=== PATIENT | male | born 1985 | race Caucasian/White ===

== ENCOUNTER → 2019-04-21 10:23 | Outpatient (BNVA) | payer MEDICAID, SELFPAY | PROVIDERS: Family Provider Family Medicine; PCP Family Medicine; Visit Provider Anesthesiology | DX: G89.29 Other chronic pain (principal); M54.16 Radiculopathy, lumbar region; M79.651 Pain in right thigh; M79.652 Pain in left thigh; M12.819 Other specific arthropathies, not elsewhere classified, unspecified shoulder; S22.009S Unspecified fracture of unspecified thoracic vertebra, sequela; X58.XXXS Exposure to other specified factors, sequela; M75.100 Unspecified rotator cuff tear or rupture of unspecified shoulder, not specified as traumatic; Z87.828 Personal history of other (healed) physical injury and trauma; Z79.891 Long term (current) use of opiate analgesic | CPT/HCPCS: 99214 ==

== ENCOUNTER → 2019-05-19 14:01 | Outpatient (BNVA) | payer MEDICAID, SELFPAY | PROVIDERS: Family Provider Family Medicine; PCP Family Medicine; Visit Provider Anesthesiology | DX: Z76.89 Persons encountering health services in other specified circumstances (principal); G89.29 Other chronic pain; M54.16 Radiculopathy, lumbar region; Z87.828 Personal history of other (healed) physical injury and trauma; Z79.891 Long term (current) use of opiate analgesic | CPT/HCPCS: 99213; 99214 ==

== ENCOUNTER → 2019-08-12 13:44 | Outpatient (BNVA) | payer MEDICAID, SELFPAY | PROVIDERS: Family Provider Family Medicine; PCP Family Medicine; Visit Provider Nurse Practitioner | DX: M54.41 Lumbago with sciatica, right side (principal); M54.42 Lumbago with sciatica, left side; M54.9 Dorsalgia, unspecified; Z79.891 Long term (current) use of opiate analgesic; Z71.6 Tobacco abuse counseling | CPT/HCPCS: 99213 ==

== ENCOUNTER → 2019-10-07 07:55 | Outpatient (BNVA) | payer MEDICAID, SELFPAY | PROVIDERS: Family Provider Family Medicine; PCP Family Medicine; Visit Provider Anesthesiology | DX: G89.29 Other chronic pain (principal); M54.16 Radiculopathy, lumbar region; M54.9 Dorsalgia, unspecified; M75.102 Unspecified rotator cuff tear or rupture of left shoulder, not specified as traumatic; M12.812 Other specific arthropathies, not elsewhere classified, left shoulder; Z79.891 Long term (current) use of opiate analgesic | CPT/HCPCS: 99214 ==

== ENCOUNTER → 2019-11-12 10:14 | Outpatient (BNVA) | payer MEDICAID, SELFPAY | PROVIDERS: Family Provider Family Medicine; PCP Family Medicine; Visit Provider Nurse Practitioner | DX: G89.29 Other chronic pain (principal); M54.42 Lumbago with sciatica, left side; M54.16 Radiculopathy, lumbar region; S22.009S Unspecified fracture of unspecified thoracic vertebra, sequela; X58.XXXS Exposure to other specified factors, sequela; M54.9 Dorsalgia, unspecified; Z79.891 Long term (current) use of opiate analgesic | CPT/HCPCS: 99213 ==

== ENCOUNTER → 2019-12-10 10:27 | Outpatient (BNVA) | payer MEDICAID, SELFPAY | PROVIDERS: Family Provider Family Medicine; PCP Family Medicine; Visit Provider Anesthesiology | DX: G89.29 Other chronic pain (principal); M54.42 Lumbago with sciatica, left side; M54.16 Radiculopathy, lumbar region; M54.9 Dorsalgia, unspecified; S22.009S Unspecified fracture of unspecified thoracic vertebra, sequela; X58.XXXS Exposure to other specified factors, sequela; Z87.828 Personal history of other (healed) physical injury and trauma; Z79.891 Long term (current) use of opiate analgesic | CPT/HCPCS: 99213; 99214 ==

== ENCOUNTER → 2020-02-09 13:18 | Outpatient (BNVA) | payer MEDICAID, SELFPAY | PROVIDERS: Family Provider Family Medicine; PCP Family Medicine; Visit Provider Anesthesiology | DX: G89.29 Other chronic pain (principal); M54.16 Radiculopathy, lumbar region; M54.9 Dorsalgia, unspecified; Z87.828 Personal history of other (healed) physical injury and trauma; Z79.891 Long term (current) use of opiate analgesic | CPT/HCPCS: 99213; 99214 ==

== ENCOUNTER → 2020-04-08 08:23 | Outpatient (BNVA) | payer MEDICAID, SELFPAY | PROVIDERS: PCP Family Medicine; Visit Provider Anesthesiology | DX: G89.29 Other chronic pain (principal); M54.42 Lumbago with sciatica, left side; M54.9 Dorsalgia, unspecified; M54.16 Radiculopathy, lumbar region; Z79.891 Long term (current) use of opiate analgesic | CPT/HCPCS: 99213 ==

== ENCOUNTER → 2020-06-02 07:54 | Outpatient (BNVA) | payer MEDICAID, SELFPAY | PROVIDERS: PCP Family Medicine; Visit Provider Anesthesiology | DX: G89.29 Other chronic pain (principal); M54.42 Lumbago with sciatica, left side; M54.9 Dorsalgia, unspecified; M54.16 Radiculopathy, lumbar region; Z87.828 Personal history of other (healed) physical injury and trauma; Z79.891 Long term (current) use of opiate analgesic | CPT/HCPCS: 99213 ==

== ENCOUNTER → 2020-08-03 12:46 | Outpatient (BNVA) | payer MEDICAID, SELFPAY | PROVIDERS: PCP Family Medicine; Visit Provider Urology | DX: N39.0 Urinary tract infection, site not specified (principal); N31.9 Neuromuscular dysfunction of bladder, unspecified; R33.9 Retention of urine, unspecified; N52.9 Male erectile dysfunction, unspecified | CPT/HCPCS: 81003 ==

== ENCOUNTER → 2020-08-05 09:04 | Outpatient (BNVA) | payer MEDICAID, SELFPAY | PROVIDERS: PCP Family Medicine; Visit Provider Nurse Practitioner | DX: G89.29 Other chronic pain (principal); M54.16 Radiculopathy, lumbar region; M54.9 Dorsalgia, unspecified; S22.009S Unspecified fracture of unspecified thoracic vertebra, sequela; X58.XXXS Exposure to other specified factors, sequela; Z87.828 Personal history of other (healed) physical injury and trauma; Z79.891 Long term (current) use of opiate analgesic | CPT/HCPCS: 99212; 99213 ==

== ENCOUNTER → 2020-10-05 09:04 | Outpatient (BNVA) | payer MEDICAID, SELFPAY | PROVIDERS: PCP Family Medicine; Visit Provider Anesthesiology | DX: G89.29 Other chronic pain (principal); M54.42 Lumbago with sciatica, left side; M54.16 Radiculopathy, lumbar region; Z87.828 Personal history of other (healed) physical injury and trauma; Z79.891 Long term (current) use of opiate analgesic; Z87.891 Personal history of nicotine dependence | CPT/HCPCS: 99213 ==

== ENCOUNTER → 2020-11-29 08:10 | Outpatient (BNVA) | payer MEDICAID, SELFPAY | PROVIDERS: PCP Family Medicine; Visit Provider Anesthesiology | DX: G89.29 Other chronic pain (principal); M54.16 Radiculopathy, lumbar region; Z87.828 Personal history of other (healed) physical injury and trauma; Z79.891 Long term (current) use of opiate analgesic; Z87.891 Personal history of nicotine dependence | CPT/HCPCS: 99213 ==

== ENCOUNTER → 2021-01-25 09:19 | Outpatient (BNVA) | payer MEDICAID, SELFPAY | PROVIDERS: PCP Family Medicine; Visit Provider Anesthesiology | DX: G89.29 Other chronic pain (principal); M54.16 Radiculopathy, lumbar region; Z87.828 Personal history of other (healed) physical injury and trauma; Z79.891 Long term (current) use of opiate analgesic | CPT/HCPCS: 99213 ==

== ENCOUNTER → 2021-04-04 08:58 | Outpatient (BNVA) | payer MEDICAID, SELFPAY | PROVIDERS: PCP Family Medicine; Visit Provider Anesthesiology | DX: G89.29 Other chronic pain (principal); M54.50 Low back pain, unspecified; Z79.891 Long term (current) use of opiate analgesic; Z87.891 Personal history of nicotine dependence | CPT/HCPCS: 99213 ==

== ENCOUNTER → 2022-08-08 11:07 | Outpatient (BNVA) | payer MEDICAID, SELFPAY | PROVIDERS: PCP Family Medicine; Visit Provider Urology | DX: R33.9 Retention of urine, unspecified (principal); N39.0 Urinary tract infection, site not specified; N52.9 Male erectile dysfunction, unspecified | CPT/HCPCS: 81003; 99213 ==

== ENCOUNTER 2023-03-06 04:20 | Emergency (ER) | payer MEDICAID, SELFPAY ==
[2023-03-06 04:24] VITALS: BP 143/107; PULSE 97; RESP 20; TEMP 36.8; O2SAT 100; BMI 20.9
[2023-03-06 04:47] LABS: Basophils # 0.1 10^3/uL (0.0-0.1); Basophils % 0.4 %; Eosinophils # 0.2 10^3/uL (0.0-0.8); Eosinophils % 1.4 %; Hematocrit 45.6 % (37-53); Lymphocytes # 3.6 10^3/uL (0.8-4.8); Lymphocytes % 28.8 %; Mean Corpuscular HGB Conc 34.6 g/dL (30-55); Mean Corpuscular Hemoglobin 30.8 pg (27-33); Mean Corpuscular Volume 88.9 fl (82-101); Mean Platelet Volume 8.8 fL (7.4-10.4); Monocytes # 0.8 10^3/uL (0.2-0.9); Monocytes % 6.3 %; Neutrophils # 7.75 10^3/uL (1.8-7.7); Neutrophils % 62.8 %; Nucleated Red Blood Cells % 0 %; Platelet Count 332 10^3/cmm (157-399); Red Blood Count 5.13 10^6/uL (3.85-5.65); Red Cell Distribution Width 11.9 % (12.1-15.1); White Blood Count 12.35 10^3/uL (3.29-11.43)
[2023-03-06] MEDS: ondansetron 2 mg/ML SDV 2 mL 4 MG IVP (04:51)
[2023-03-06] MEDS: ketorolac 30 mg/mL INJ IVP (04:51)
--- NOTE | 2023-03-06 04:55 | CTR_ITS ---
PROCEDURE INFORMATION: Exam: CT Abdomen And Pelvis With Contrast Exam date and time: 03/06/2023 5:13 AM Age: 37 years old Clinical indication: Abdominal pain; Localized; Patient HX: Severe upper abd pain per patient TECHNIQUE: Imaging protocol: Computed tomography of the abdomen and pelvis with contrast. Radiation optimization: All CT scans at this facility use at least one of these dose optimization techniques: automated exposure control; mA and/or kV adjustment per patient size (includes targeted exams where dose is matched to clinical indication); or iterative reconstruction. Contrast material: OMNI 350; Contrast volume: 100 ml; Contrast route: INTRAVENOUS (IV); COMPARISON: CT abdomen pelvis w con* [id number] 08/19/2016 4:40 AM RADIATION DOSE METRICS: Total DLP (mGy-cm): 527.46 FINDINGS: Liver: No acute abnormality or suspicious hepatic mass. Portal vein is patent. Gallbladder and bile ducts: Distended gallbladder without gallbladder wall thickening or biliary duct dilation. No radiodense stones are seen. Pancreas: No acute abnormality or obvious pancreatic duct dilation. Spleen: Normal size; no suspicious masses. Adrenal glands: No suspicious adrenal masses. Kidneys and ureters: Symmetric renal parenchymal enhancement without hydronephrosis. Stomach and bowel: No evidence of gastric outlet obstruction or bowel obstruction. Appendix: The appendix is normal. Intraperitoneal space: No free intraperitoneal air, significant ascites, or localized fluid collections. Vasculature: Abdominal aorta has normal caliber. Lymph nodes: No enlarged lymph nodes. Urinary bladder: No significant bladder wall thickening. Reproductive: Visualized portions show no obvious acute abnormality. Bones/joints: No acute osseous abnormality detected. Extensive posterolateral osseous fusion extending from T11 to L3. Mild chronic compression deformity at L1. Soft tissues: Unremarkable. CT/CT abdomen pelvis w con* [id number] IMPRESSION: 1. Moderately distended gallbladder. No evidence of cholecystitis or biliary duct obstruction. Such finding is nonspecific but can be seen in setting of biliary dyskinesia. 2. Otherwise, no acute abnormality identified within the abdomen or pelvis.
[2023-03-06 05:00] LABS: Alanine Aminotransferase 29 U/L (0-41); Albumin Level 4.8 g/dL (3.5-5.2); Alkaline Phosphatase 70 U/L (40-130); Anion Gap 18.6 (5-19); Aspartate Amino Transferase 17 U/L (0-40); Blood Urea Nitrogen 6 mg/dL (6-20); Calcium 10.2 mg/dL (8.5-10.5); Carbon Dioxide 21 mmol/L (22-29); Chloride 102 mmol/L (98-107); Globulin 3.7 g/dL (1.3-4.6); Glomerular Filtration Rate 125.5 mL/min (90-130); Glucose 128 mg/dL (65-115); Lipase 61 U/L (13-60); Osmolality Calculated 285 mOsm/kg (285-295); Potassium 3.6 mmol/L (3.5-5.1); Sodium 138 mmol/L (136-145); Total Bilirubin 0.3 mg/dL (0.15-1.2); Total Protein 8.5 g/dL (6.6-8.7)
[2023-03-06 05:01] LABS: Alcohol Level < 10 mg/dL (0-10)
[2023-03-06] MEDS: lidocaine 2% viscous 15 ML, aluminum-mag hydrox-simethicon 30 ML, sucralfate oral liq 1 GM PO (05:02)
[2023-03-06] MEDS: morphine 4 mg/mL SDV 1 mL IVP (05:03)
[2023-03-06 05:06] LABS: Ammonia 21 umol/L (16-60)
[2023-03-06] MEDS: iohexol 350 mg/mL 500 mL Btl (per mL) IV (05:17)
--- NOTE | 2023-03-06 05:22 | ED_ITS ---
Documented by User: Rhett Cason MD 03/06/23 07:11 HPI - Abdominal Pain 2 General: Chief Complaint: Abdominal Pain Stated Complaint: stomach pain Time Seen by Provider: 03/06/23 04:31 History of Present Illness: 37-year-old male presents emergency depa rtment with complaints of 10 out of 10 epigastric pain. He states it is a burning sharp stabbing type pain that began approximately 1 AM this morning. He states he vomited 2-3 times. He states he attempted to take [id number] antacids without relief he also states he drank several glasses of water to help with the pain. He states he also took a single Tylenol without relief. He states he has a history of chronic back pain and takes hydrocodone for his chronic back pain. Associated Symptoms: Reports nausea and vomiting Review of Systems 2 General: Reports: 10 or more systems reviewed and unremarkable except in HPI and below GI: Reports: abdominal pain, nausea and vomiting PFSH ED 2 PFSH: Medical History Acute back pain Acute radicular low back pain Back pain with history of spinal surgery Chronic low back pain Chronic radicular low back pain Encounter for long-term opiate analgesic use Erectile dysfunction Hx of spinal cord injury Neurogenic bladder Opioid contract exists Recurrent UTI Rotator cuff tear arthropathy Unspecified fracture of unspecified thoracic vertebra, sequela Surgical History History of back surgery Family History Denies family history of Anesthesia complication Social History Smoking and tobacco/nicotine status: current some day tobacco/nicotine user cigarettes Second hand smoke exposure: No Alcohol intake: never Substance/Drug Use: never Current occupational status: disabled Physical Exam 2 Narrative: EXAM NARRATIVE: Constitutional: the patient appears well nourished and of normal development. Vital signs as documented. Patient does appear to be in acute distress with epigastric pain. Alert and oriented-to person, place, time and situation. Head, eyes, ears, nose, mouth, throat: Normocephalic, atraumatic. Pupils-equal, round, reactive to light. No scleral icterus. Normal-appearing external ears. Normal appearing nasal turbinates, no drainage. No obvious oral lesions, posterior oropharynx without erythema or exudates. Neck: Supple, trachea is midline, no lymphadenopathy, no jugular venous distension, thyromegaly, or carotid bruits. Carotid upstrokes are brisk bilaterally. Lungs: clear to auscultation to all lung anna. Symmetrical rise and fall of chest, no obvious signs of increased work of breathing at present. Cardiac: Regular rate and rhythm, positive S1, S2. No murmurs, rubs or gallops that I can appreciate Abdomen: Soft, tender to palpation to the epigastric region and right upper quadrant., normal active bowel sounds to all quadrants. No palpable masses, no organomegaly and abdominal bruits. Extremities: 2+ pulses in the upper extremities that are equal bilaterally, 2+ pulses in the lower extremities that are equal bilaterally. Non-edematous. Moves all extremities well, sensation to all extremities are noted. Skin: Warm, dry, intact. Course 2 Reevaluation(s): Reevaluation #1: Reevaluation of the patient after he received Toradol, morphine, Zofran and a GI cocktail demonstrates moderate improvement of the patient's pain. He states he now rates the pain a 3 out of 10. He has had no additional episodes of nausea or vomiting. Time: 05:26 Vital Signs: Vital signs: Vital Signs Temperature 98.3 F 03/06/23 04:24 Pulse Rate 87 03/06/23 06:37 Respiratory Rate 16 03/06/23 06:37 Blood Pressure 110/78 03/06/23 06:37 Pulse Oximetry 97 03/06/23 06:37 Oxygen Delivery Me thod Room Air 03/06/23 04:24 MDM - Abdominal Pain Medical Decision Making Physical exam completed and documented, I will obtain laboratory evaluation to include a CBC, CMP, lipase, urinalysis, and a CT scan of the patient's abdomen pelvis to evaluate for possible differential diagnosis of bowel obstruction, incarcerated hernia, abdominal wall strain, abdominal wall hematoma, constipation. I will provide the patient IV access and IV fluid as well as a CT scan abdomen pelvis with contrast for evaluation for possible colitis, acute appendicitis, diverticulitis. I will provide the patient with pain medication as well as anti-nausea medication and a GI cocktail and reevaluate. Medical Records I reviewed the patient's medical records. Lab Data I reviewed the patient's lab results. 03/06/23 04:35 03/06/23 04:35 Labs/Radiology: Radiology Impressions Abdomen/Pelvis CT 03/06/23 04:55 IMPRESSION: 1. Moderately distended gallbladder. No evidence of cholecystitis or biliary duct obstruction. Such finding is nonspecific but can be seen in setting of biliary dyskinesia. 2. Otherwise, no acute abnormality identified within the abdomen or pelvis. Gallbladder Ultrasound 03/06/23 06:06 IMPRESSION: Gallbladder distended with sludge. Cholelithiasis also present. Laboratory Results WBC 12.35 10^3/uL (3.29-11.43) H 03/06/23 04:35 RBC 5.13 10^6/uL (3.85-5.65) 03/06/23 04:35 Hgb 15.80 g/dL (11.27-16.99) 03/06/23 04:35 Hct 45.6 % (37-53) 03/06/23 04:35 MCV 88.9 fl (82-101) 03/06/23 04:35 MCH 30.8 pg (27-33) 03/06/23 04:35 MCHC 34.6 g/dL (30-55) 03/06/23 04:35 RDW 11.9 % (12.1-15.1) L 03/06/23 04:35 Plt Count 332 10^3/cmm (157-399) 03/06/23 04:35 MPV 8.8 fL (7.4-10.4) 03/06/23 04:35 Neut % (Auto) 62.8 % 03/06/23 04:35 Lymph % (Auto) 28.8 % 03/06/23 04:35 [place] % (Auto) 6.3 % 03/06/23 04:35 Eos % (Auto) 1.4 % 03/06/23 04:35 Baso % (Auto) 0.4 % 03/06/23 04:35 Neut # (Auto) 7.75 10^3/uL (1.8-7.7) H 03/06/23 04:35 Lymph # (Auto) 3.6 10^3/uL (0.8-4.8) 03/06/23 04:35 [place] # (Auto) 0.8 10^3/uL (0.2-0.9) 03/06/23 04:35 Eos # (Auto) 0.2 10^3/uL (0.0-0.8) 03/06/23 04:35 Baso # (Auto) 0.1 10^3/uL (0.0-0.1) 03/06/23 04:35 Nucleated RBC % (auto) 0 % 03/06/23 04:35 Nucleated RBCs # 0.0 /100WBC 03/06/23 04:35 Sodium 138 mmol/L (136-145) 03/06/23 04:35 Potassium 3.6 mmol/L (3.5-5.1) 03/06/23 04:35 Chloride 102 mmol/L (98-107) 03/06/23 04:35 Carbon Dioxide 21 mmol/L (22-29) L 03/06/23 04:35 Anion Gap 18.6 (5-19) 03/06/23 04:35 BUN 6 mg/dL (6-20) 03/06/23 04:35 Creatinine 0.7 mg/dL (0.7-1.2) 03/06/23 04:35 GFR Calculation 125.5 mL/min (90-130) 03/06/23 04:35 Glucose 128 mg/dL (65-115) H 03/06/23 04:35 Calculated Osmolality 285 mOsm/kg (285-295) 03/06/23 04:35 Calcium 10.2 mg/dL (8.5-10.5) 03/06/23 04:35 Total Bilirubin 0.3 mg/dL (0.15-1.2) 03/06/23 04:35 AST 17 U/L (0-40) 03/06/23 04:35 ALT 29 U/L (0-41) 03/06/23 04:35 Alkaline Phosphatase 70 U/L (40-130) 03/06/23 04:35 Ammonia 21 umol/L (16-60) 03/06/23 04:35 Total Protein 8.5 g/dL (6.6-8.7) 03/06/23 04:35 Albumin 4.8 g/dL (3.5-5.2) 03/06/23 04:35 Globulin 3.7 g/dL (1.3-4.6) 03/06/23 04:35 Lipase 61 U/L (13-60) H 03/06/23 04:35 Urine Color Yellow (Yellow) 03/06/23 05:20 Urine Appearance Clear (CLEAR) 03/06/23 05:20 Urine pH 7 (5-7) 03/06/23 05:20 Ur Specific [place] 1.005 (1.005-1.030) 03/06/23 05:20 Urine Protein Trace (Negative) 03/06/23 05:20 Urine Glucose (UA) Norm (Normal) 03/06/23 05:20 Urine Ketones 1+ (Negative) H 03/06/23 05:20 Urine Blood Neg (Negative) 03/06/23 05:20 Urine Nitrate Negative (Negative) 03/06/23 05:20 Urine Bilirubin Neg (Negative) 03/06/23 05:20 Urine Urobilinogen Neg mg/dL (Negative) 03/06/23 05:20 Ur Leukocyte Esterase Trace (Negative) H 03/06/23 05:20 Urine RBC None /hpf (0-2) 03/06/23 05:20 Urine WBC 0-4 /hpf (0-5) H 03/06/23 05:20 Ur Squamous Epith Cells None /hpf (0-5) 03/06/23 05:20 Amorphous Sediment Not Reportable 03/06/23 05:20 Urine Bacteria Trace /hpf (NONE) 03/06/23 05:20 Urine Opiates Screen Positive ng/mL (Negative) H 03/06/23 05:20 Ur Barbiturates Screen Negative ng/mL (Negative) 03/06/23 05:20 Ur Phencyclidine Scrn Negative ng/mL (Negative) 03/06/23 05:20 Ur Amphetamines Screen Negative ng/mL (Negative) 03/06/23 05:20 U Benzodiazepines Scrn Negative ng/mL (Negative) 03/06/23 05:20 Urine Cocaine Screen Negative ng/mL (Negative) 03/06/23 05:20 U Marijuana (THC) Screen Negative ng/mL (Negative) 03/06/23 05:20 Ethyl Alcohol < 10 mg/dL (0-10) 03/06/23 04:35 All radiology interpretation(s) finalized by discharge Discharge Plan Discharge Patient Disposition: Home Clinical Impression: Duodenal ulcer, Biliary sludge determined by ultrasound Condition: Stable Prescriptions: New Protonix 40 mg tablet,delayed release (DR/EC) 40 mg PO BID Qty: 60 0RF Discontinued famotidine 20 mg tablet 20 mg PO BID 90 Days Qty: 180 3RF No Action tadalafil 20 mg tablet 20 mg PO DAILY PRN (Reason: sexual activity) Qty: 20 12RF Rx Instructions: administer approximately 30min before sexual activity; NO NITROGLYCERIN! polyethylene glycol 3350 [Miralax] 17 gram/dose powder 17 g PO DAILY Qty: 510 5RF cephalexin 250 mg capsule 250 mg PO TID Qty: 42 12RF hydrocodone-acetaminophen 10-325 mg tablet 1 tab PO Q8H PRN (Reason: pain) 30 Days Qty: 90 0RF lactulose 10 gram/15 mL solution See Rx Instructions .ROUTE .COMPLEX Qty: 473 5RF Dose Instruction: TAKE 30 ML BY MOUTH TWICE DAILY Rx Instructions: TAKE 30 ML BY MOUTH TWICE DAILY Discharge Orders: Discharge ED (Routine); Ordered 03/06/23 Ordered By: Robe Garcia Referrals: Igor Reyna MD [Primary Care Provider] - Discharge Diet: Usual diet Discharge Activity: Resume usual activity Patient Instructions: Diet for Stomach Ulcers and Gastritis (ED), Opioid Safety, Pain Management Activity Restrictions/Additional Instructions: Thank you for choosing [facility] for your healthcare needs today. Please realize this is an emergency room and that we are providing you with a medical screening exam and this may not be complete and all inclusive of all the testing and or work up that you may need to determine your ailment or severity of your illness. It is very important that you follow up as instructed or that you return to the Emergency Department should you have concerns or if your condition changes or worsens in any way. You are seen today for abdominal pain. Imaging shows sludge in the gallbladder but there is no definitive signs of acute cholecystitis at this time. Dr. Garcia seen and recommends Protonix 40 mg twice daily for at least the following month. You are also given instructions on diet for ulcers. manager plan will make arrangements for follow-up with Dr. Garcia. Sign Out Sign Out Data: Patient Sign Out occurred on 03/06/23 at 06:49. Patient's care was discussed, and care was transferred from Rhett Cason MD to Robe Garcia DO. Coding Level of Care Code ED Barrel Leveler for Chg Fwd Documented by User: Robe Garcia DO 03/06/23 07:17 HPI - Abdominal Pain 2 General: Chief Complaint: Abdominal Pain Stated Complaint: stomach pain Time Seen by Provider: 03/06/23 04:31 PFSH ED 2 PFSH: Medical History Acute back pain Acute radicular low back pain Back pain with history of spinal surgery Chronic low back pain Chronic radicular low back pain Encounter for long-term opiate analgesic use Erectile dysfunction Hx of spinal cord injury Neurogenic bladder Opioid contract exists Recurrent UTI Rotator cuff tear arthropathy Unspecified fracture of unspecified thoracic vertebra, sequela Surgical History History of back surgery Family History Denies family history of Anesthesia complication Social History Smoking and tobacco/nicotine status: current some day tobacco/nicotine user cigarettes Second hand smoke exposure: No Alcohol intake: never Substance/Drug Use: never Current occupational status: disabled Course 2 Vital Signs: Vital signs: Vital Signs Temperature 98.3 F 03/06/23 04:24 Pulse Rate 87 03/06/23 06:37 Respiratory Rate 16 03/06/23 06:37 Blood Pressure 110/78 03/06/23 06:37 Pulse Oximetry 97 03/06/23 06:37 Oxygen Delivery Me thod Room Air 03/06/23 04:24 MDM - Abdominal Pain Medical Decision Making Physical exam completed and documented, I will obtain laboratory evaluation to include a CBC, CMP, lipase, urinalysis, and a CT scan of the patient's abdomen pelvis to evaluate for possible differential diagnosis of bowel obstruction, incarcerated hernia, abdominal wall strain, abdominal wall hematoma, constipation. I will provide the patient IV access and IV fluid as well as a CT scan abdomen pelvis with contrast for evaluation for possible colitis, acute appendicitis, diverticulitis. I will provide the patient with pain medication as well as anti-nausea medication and a GI cocktail and reevaluate. Care assumed at change of shift CT shows large amount of gallbladder sludge with distended gallbladder but no gallbladder wall thickening. He has had a previous episode about a month ago. He cannot really identify any triggering foods or events with these episodes. He does report improvement after pain medications and GI cocktail. He also reports in the past he has not had similar episodes much less intense that improved when he ate. Discussed with Dr. Garcia on- call for surgery he seen the patient in the department. Will discharge the patient home and his recommendation on Protonix 40 mg twice daily for a month. Follow-up with Dr. Garcia in the office if symptoms worsen or change return to the emergency room. Differential Diagnosis Likely abdominal pain, constipation, gastroenteritis, pancreatitis and small bowel obstruction Medical Records I reviewed the patient's medical records. Lab Data I reviewed the patient's lab results. 03/06/23 04:35 03/06/23 04:35 Labs/Radiology: Radiology Impressions Abdomen/Pelvis CT 03/06/23 04:55 IMPRESSION: 1. Moderately distended gallbladder. No evidence of cholecystitis or biliary duct obstruction. Such finding is nonspecific but can be seen in setting of biliary dyskinesia. 2. Otherwise, no acute abnormality identified within the abdomen or pelvis. Gallbladder Ultrasound 03/06/23 06:06 IMPRESSION: Gallbladder distended with sludge. Cholelithiasis also present. Laboratory Results WBC 12.35 10^3/uL (3.29-11.43) H 03/06/23 04:35 RBC 5.13 10^6/uL (3.85-5.65) 03/06/23 04:35 Hgb 15.80 g/dL (11.27-16.99) 03/06/23 04:35 Hct 45.6 % (37-53) 03/06/23 04:35 MCV 88.9 fl (82-101) 03/06/23 04:35 MCH 30.8 pg (27-33) 03/06/23 04:35 MCHC 34.6 g/dL (30-55) 03/06/23 04:35 RDW 11.9 % (12.1-15.1) L 03/06/23 04:35 Plt Count 332 10^3/cmm (157-399) 03/06/23 04:35 MPV 8.8 fL (7.4-10.4) 03/06/23 04:35 Neut % (Auto) 62.8 % 03/06/23 04:35 Lymph % (Auto) 28.8 % 03/06/23 04:35 [place] % (Auto) 6.3 % 03/06/23 04:35 Eos % (Auto) 1.4 % 03/06/23 04:35 Baso % (Auto) 0.4 % 03/06/23 04:35 Neut # (Auto) 7.75 10^3/uL (1.8-7.7) H 03/06/23 04:35 Lymph # (Auto) 3.6 10^3/uL (0.8-4.8) 03/06/23 04:35 [place] # (Auto) 0.8 10^3/uL (0.2-0.9) 03/06/23 04:35 Eos # (Auto) 0.2 10^3/uL (0.0-0.8) 03/06/23 04:35 Baso # (Auto) 0.1 10^3/uL (0.0-0.1) 03/06/23 04:35 Nucleated RBC % (auto) 0 % 03/06/23 04:35 Nucleated RBCs # 0.0 /100WBC 03/06/23 04:35 Sodium 138 mmol/L (136-145) 03/06/23 04:35 Potassium 3.6 mmol/L (3.5-5.1) 03/06/23 04:35 Chloride 102 mmol/L (98-107) 03/06/23 04:35 Carbon Dioxide 21 mmol/L (22-29) L 03/06/23 04:35 Anion Gap 18.6 (5-19) 03/06/23 04:35 BUN 6 mg/dL (6-20) 03/06/23 04:35 Creatinine 0.7 mg/dL (0.7-1.2) 03/06/23 04:35 GFR Calculation 125.5 mL/min (90-130) 03/06/23 04:35 Glucose 128 mg/dL (65-115) H 03/06/23 04:35 Calculated Osmolality 285 mOsm/kg (285-295) 03/06/23 04:35 Calcium 10.2 mg/dL (8.5-10.5) 03/06/23 04:35 Total Bilirubin 0.3 mg/dL (0.15-1.2) 03/06/23 04:35 AST 17 U/L (0-40) 03/06/23 04:35 ALT 29 U/L (0-41) 03/06/23 04:35 Alkaline Phosphatase 70 U/L (40-130) 03/06/23 04:35 Ammonia 21 umol/L (16-60) 03/06/23 04:35 Total Protein 8.5 g/dL (6.6-8.7) 03/06/23 04:35 Albumin 4.8 g/dL (3.5-5.2) 03/06/23 04:35 Globulin 3.7 g/dL (1.3-4.6) 03/06/23 04:35 Lipase 61 U/L (13-60) H 03/06/23 04:35 Urine Color Yellow (Yellow) 03/06/23 05:20 Urine Appearance Clear (CLEAR) 03/06/23 05:20 Urine pH 7 (5-7) 03/06/23 05:20 Ur Specific [place] 1.005 (1.005-1.030) 03/06/23 05:20 Urine Protein Trace (Negative) 03/06/23 05:20 Urine Glucose (UA) Norm (Normal) 03/06/23 05:20 Urine Ketones 1+ (Negative) H 03/06/23 05:20 Urine Blood Neg (Negative) 03/06/23 05:20 Urine Nitrate Negative (Negative) 03/06/23 05:20 Urine Bilirubin Neg (Negative) 03/06/23 05:20 Urine Urobilinogen Neg mg/dL (Negative) 03/06/23 05:20 Ur Leukocyte Esterase Trace (Negative) H 03/06/23 05:20 Urine RBC None /hpf (0-2) 03/06/23 05:20 Urine WBC 0-4 /hpf (0-5) H 03/06/23 05:20 Ur Squamous Epith Cells None /hpf (0-5) 03/06/23 05:20 Amorphous Sediment Not Reportable 03/06/23 05:20 Urine Bacteria Trace /hpf (NONE) 03/06/23 05:20 Urine Opiates Screen Positive ng/mL (Negative) H 03/06/23 05:20 Ur Barbiturates Screen Negative ng/mL (Negative) 03/06/23 05:20 Ur Phencyclidine Scrn Negative ng/mL (Negative) 03/06/23 05:20 Ur Amphetamines Screen Negative ng/mL (Negative) 03/06/23 05:20 U Benzodiazepines Scrn Negative ng/mL (Negative) 03/06/23 05:20 Urine Cocaine Screen Negative ng/mL (Negative) 03/06/23 05:20 U Marijuana (THC) Screen Negative ng/mL (Negative) 03/06/23 05:20 Ethyl Alcohol < 10 mg/dL (0-10) 03/06/23 04:35 Discharge Plan Discharge Patient Disposition: Home Clinical Impression: Duodenal ulcer, Biliary sludge determined by ultrasound Condition: Stable Prescriptions: New Protonix 40 mg tablet,delayed release (DR/EC) 40 mg PO BID Qty: 60 0RF Discontinued famotidine 20 mg tablet 20 mg PO BID 90 Days Qty: 180 3RF No Action tadalafil 20 mg tablet 20 mg PO DAILY PRN (Reason: sexual activity) Qty: 20 12RF Rx Instructions: administer approximately 30min before sexual activity; NO NITROGLYCERIN! polyethylene glycol 3350 [Miralax] 17 gram/dose powder 17 g PO DAILY Qty: 510 5RF cephalexin 250 mg capsule 250 mg PO TID Qty: 42 12RF hydrocodone-acetaminophen 10-325 mg tablet 1 tab PO Q8H PRN (Reason: pain) 30 Days Qty: 90 0RF lactulose 10 gram/15 mL solution See Rx Instructions .ROUTE .COMPLEX Qty: 473 5RF Dose Instruction: TAKE 30 ML BY MOUTH TWICE DAILY Rx Instructions: TAKE 30 ML BY MOUTH TWICE DAILY Discharge Orders: Discharge ED (Routine); Ordered 03/06/23 Ordered By: Robe Garcia Referrals: Igor Reyna MD [Primary Care Provider] - Discharge Diet: Usual diet Discharge Activity: Resume usual activity Patient Instructions: Diet for Stomach Ulcers and Gastritis (ED), Opioid Safety, Pain Management Activity Restrictions/Additional Instructions: Thank you for choosing [facility] for your healthcare needs today. Please realize this is an emergency room and that we are providing you with a medical screening exam and this may not be complete and all inclusive of all the testing and or work up that you may need to determine your ailment or severity of your illness. It is very important that you follow up as instructed or that you return to the Emergency Department should you have concerns or if your condition changes or worsens in any way. You are seen today for abdominal pain. Imaging shows sludge in the gallbladder but there is no definitive signs of acute cholecystitis at this time. Dr. Garcia seen and recommends Protonix 40 mg twice daily for at least the following month. You are also given instructions on diet for ulcers. manager plan will make arrangements for follow-up with Dr. Garcia. Sign Out Sign Out Data: Patient Sign Out occurred on 03/06/23 at 06:49. Patient's care was discussed, and care was transferred from Rhett Cason MD to Robe Garcia DO. Coding Level of Care Code ED Barrel Leveler for David Hassan
[2023-03-06 05:45] LABS: Amphetamines Screen Urine Negative (Negative); Barbiturates Screen Urine Negative (Negative); Benzodiazepines Screen Urine Negative (Negative); Cocaine Screen Urine Negative (Negative); Opiate Screen Urine Positive (Negative); PCP Screen Urine Negative (Negative); THC Screen Urine Negative (Negative)
[2023-03-06 05:52] VITALS: BP 130/98; PULSE 85; RESP 16; O2SAT 99
[2023-03-06 05:57] LABS: Bilirubin Urine Neg (Negative); Blood Urine Neg (Negative); Glucose Urine UA Norm (Normal); Ketones Urine 1+ (Negative); Nitrate Urine Negative (Negative); Protein Urine Trace (Negative); Specific Gravity, Urine 1.005 (1.005-1.030); Urine Appearance Clear (CLEAR); Urine Color Yellow (Yellow); Urobilinogen Urine Neg (Negative); pH Urine 7 (5-7)
[2023-03-06 05:58] LABS: Add Urine Culture? No; Add Urine Microscopic? YES; Bacteria Urine TRACE /hpf; Leukocyte Esterase Urine Trace (Negative); WBC Urine 0-4 /hpf (0-5)
--- NOTE | 2023-03-06 06:06 | USR_ITS ---
PROCEDURE INFORMATION: Exam: US Abdomen, Limited; Right Upper Quadrant Exam date and time: 03/06/2023 6:28 AM Age: 37 years old Clinical indication: Abdominal pain; Acute; Additional info: RUQ pain. Distended gallbladder on CT scan. TECHNIQUE: Imaging protocol: Real time ultrasound of the abdomen with image documentation. Limited exam focused on the right upper quadrant. COMPARISON: CT abdomen pelvis w con* [id number] 03/06/2023 5:13 AM FINDINGS: Liver: Imaged portions of the liver are unremarkable. Gallbladder: Gallbladder is completely filled with sludge. There likely are dependent gallstones given the presence of acoustic shadowing. The stones are difficult to individually identify due to the extent of sludge within the gallbladder. The gallbladder wall measures approximately 3 mm which is upper limits of normal. The patient was diffusely tender over the abdomen without focal tenderness over the gallbladder. Biliary ducts: Common bile duct has normal caliber. Pancreas: Pancreas obscured by overlying bowel gas. Right kidney: Limited views show no hydronephrosis. US/US gall bladder [id number] IMPRESSION: Gallbladder distended with sludge. Cholelithiasis also present.
[2023-03-06 06:37] VITALS: BP 110/78; PULSE 87; RESP 16; O2SAT 97
--- NOTE | 2023-03-07 07:36 | DCPLANNER ---
Message was sent to Dr. Woods office on 03/07/23 at 0737. [facility] to contact patient.
== END 2023-03-06 07:34 | disposition home or self-care (01) ==
PROVIDERS: Internal Medicine; Emergency Provider Family Medicine; PCP Family Medicine
DX: K26.9 Duodenal ulcer, unspecified as acute or chronic, without hemorrhage or perforation (principal); K80.20 Calculus of gallbladder without cholecystitis without obstruction; Z72.0 Tobacco use
CPT/HCPCS: 74177; 76705; 80053; 80306; 80307; 81001; 82140; 83690; 85025; 96374; 96375; 99285; J1885; J2270; J2405; Q9967

== ENCOUNTER 2023-05-13 22:43 | Emergency (ER) | payer MEDICAID, SELFPAY ==
[2023-05-13 22:49] VITALS: BP 126/92; PULSE 78; RESP 16; O2SAT 98
[2023-05-13 22:52] VITALS: TEMP 36.7
--- NOTE | 2023-05-13 23:03 | ECG_ITS ---
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 Measurements Intervals Bath Rate: 83 P: 62 MD: 167 QRS: 78 QRSD: 96 T: 55 QT: 353 QTc: 415 Interpretive Statements SINUS RHYTHM Compared to ECG 09/18/2015 23:06:01 Sinus arrhythmia no longer present Electronically Signed On 05-14-2023 21:36:41 CDT by Srinivasan Flood M.D. [email or web address]
--- NOTE | 2023-05-13 23:04 | XRR_ITS ---
PROCEDURE INFORMATION: Exam: XR Chest Exam date and time: 05/13/2023 11:11 PM Age: 38 years old Clinical indication: Chest wall pain; Patient HX: Pain just below sternum; Additional info: Epigastric pain TECHNIQUE: Imaging protocol: Radiologic exam of the chest. Views: 1 view. COMPARISON: CR XR chest 1V [id number] 12/28/2016 2:24 AM FINDINGS: Lungs: Clear, symmetrically inflated lungs. Pleural spaces: No pleural effusion. No pneumothorax. Heart/Mediastinum: Cardiac silhouette is normal in size for technique. Bones/joints: Age appropriate. XR/XR chest 1V portable [id number] IMPRESSION: No acute cardiopulmonary abnormality.
[2023-05-13 23:17] LABS: Add Urine Microscopic? NO; Charge for UA Resulting for Rev
[2023-05-13] MEDS: morphine 4 mg/mL SDV 1 mL IVP (23:18)
[2023-05-13] MEDS: sodium chloride 0.9% 1,000 ML 999 ML IV (23:18)
--- NOTE | 2023-05-13 23:21 | ED_ITS ---
Documented by User: BOLA Robles 05/14/23 01:06 HPI - Abdominal Pain 2 General: Chief Complaint: Abdominal Pain Stated Complaint: Stomach pain Time Seen by Provider: 05/13/23 22:50 Source: patient Mode of arrival: ambulatory Limitations: no limitations History of Present Illness: Patient is a 38-year-old male who presents to the emergency department due to epigastric pain onset today. Patient reports he was seen back in February for the same thing and was diagnosed with biliary sludge and cholelithiasis, and referred to general surgery. He states he did not follow-up at this time, as he thought he could make dietary changes and fix it himself. He notes that this was working until today, as he had sudden onset of a brick sitting on my chest. He notes that the pain is in the center of his chest and sometimes radiates to the left upper quadrant and straight through to the back. He denies any history of chronic NSAID use but does state that he has been on hydrocodone for approximately 17 years due to a history of back problems. He denies any changes in bowel or bladder habit. He further denies any fever, nausea, vomiting, chills, chest pain, breathing difficulties, flank pain, or any other symptoms. He denies history of pancreatitis or chronic alcohol consumption. He denies any cardiac history. He does note that he has been taking famotidine since his last ED visit which seem to be helping. MD elicited complaint: abdominal pain Pertinent past history: other (Biliary sludge/cholelithiasis) Pain Consistency: constant Location: Epigastric Severity: severe Quality: stabbing and sharp Radiation: LUQ and back Associated Symptoms: Reports no associated symptoms; Denies bloating, change in stool character, chills, constipation, diarrhea, dysuria, fever(s), hematochezia, nausea and vomiting Treatments prior to arrival: antacids Review of Systems 2 General: Reports: 10 or more systems reviewed and unremarkable except in HPI and below Const: Denies: fever(s), chills, change in appetite, change in weight or diaphoresis ENMT: Denies: throat pain or hoarseness Card: Denies: chest pain, palpitations or lightheadedness Resp: Denies: dyspnea, productive cough or wheezing GI: Reports: abdominal pain; Denies: nausea, vomiting, diarrhea, constipation, bloating, change in stool character or hematochezia : Denies: flank pain, difficulty urinating, dysuria, urinary frequency or urinary urgency Musc: Denies: neck pain or back pain Skin/Breast: Denies: rash or new lesions Neuro: Denies: headache(s) or dizziness PFSH ED 2 PFSH: Medical History Chronic low back pain Erectile dysfunction Neurogenic bladder Recurrent UTI Acute back pain Acute radicular low back pain Unspecified fracture of unspecified thoracic vertebra, sequela Rotator cuff tear arthropathy Hx of spinal cord injury Encounter for long-term opiate analgesic use Back pain with history of spinal surgery Chronic radicular low back pain Opioid contract exists Surgical History History of back surgery Family History Denies family history of Anesthesia complication Social History Smoking and tobacco/nicotine status: current some day tobacco/nicotine user cigarettes Second hand smoke exposure: No Alcohol intake: never Substance/Drug Use: never Current occupational status: disabled Physical Exam 2 Const: COMMON NORMALS: average body habitus, patient oriented x3, no limitations, healthy appearing, alert and well nourished GENERAL APPEARANCE: cooperative and in distress (from pain) ORIENTATION/CONSCIOUSNESS: Yes awake HENMT: COMMON NORMALS: normocephalic, atraumatic, hearing grossly normal bilaterally, external ears normal, Normal external nose present, Normal nasal mucous membranes and turbinates present and moist oral mucous membranes HEAD & SCALP: normocephalic and atraumatic NOSE: Normal external nose present and Normal nasal mucous membranes and turbinates present EXTERNAL EAR: Yes external ears normal Eye: COMMON NORMALS: Equal, round and reactive pupils present, EOMs intact bilaterally, conjunctivae normal and normal visual anna by confrontation C ONJUNCTIVA: Yes conjunctivae normal PUPIL: Yes Equal, round and reactive pupils present Neck/C-Spine: COMMON NORMALS: full ROM, supple, no meningeal signs and no JVD Resp: COMMON NORMALS: normal respiratory effort, No retractions, No use of accessory muscles and clear to auscultation bilaterally AUSCULTATION: clear to auscultation bilaterally, no crackles, no rales, no rhonchi and no wheezes Cardio: COMMON NORMALS: no JVD, regular rate, regular rhythm, S1 normal heart sound present, S2 normal heart sound present, No gallops present (Cardio), No clicks present (Cardio), No murmurs present (Cardio), No rub (Cardio) and Peripheral pulses 2+ throughout RATE: regular rate RHYTHM: regular rhythm HEART SOUNDS: S1 normal heart sound present and S2 normal heart sound present PERIPHERAL PULSES: Peripheral pulses 2+ throughout GI: COMMON NORMALS: Normal to inspection, nondistended, normoactive bowel sounds present, Soft to palpation, No hepatosplenomegaly present and no masses AUSCULTATION: Yes normoactive bowel sounds PALPATION: Yes Soft to palpation, Yes Tenderness to palpation present (GI) (epigastric), No Guarding due to palpation present (GI), No Rigid due to palpation and Yes No hepatosplenomegaly present RECTAL EXAM: Yes deferred : COMMON NORMALS: Yes no CVA tenderness BLADDER/KIDNEY EXAM: Yes no CVA tenderness Back/Pelvis: COMMON NORMALS: no CVA tenderness Extremity: COMMON NORMALS: normal to inspection and full ROM Neuro: COMMON NORMALS: patient oriented x3, moves all extremities, no focal motor deficits and no sensory deficits noted SENSORIUM/ORIENTATION: Yes alert MENINGEAL SIGNS: Yes no meningeal signs Psych: COMMON NORMALS: mental status grossly normal, cooperative and speech normal SPEECH: Yes normal speech Skin: COMMON NORMALS: no rashes or lesions noted GENERAL SKIN EXAM: no rashes or lesions noted Course 2 Vital Signs: Vital signs: Vital Signs Temperature 98.0 F 05/14/23 01:03 Pulse Rate 78 05/14/23 01:03 Respiratory Rate 16 05/14/23 01:03 Blood Pressure 126/92 05/14/23 01:03 Pulse Oximetry 98 05/14/23 01:03 Oxygen Delivery Me thod Room Air 05/13/23 22:49 MDM - Abdominal Pain Medical Decision Making Patient was seen and evaluated in the emergency department today due to epigastric pain onset today. Patient is having this pain in the past for which she was evaluated in the emergency department and diagnosed with biliary sludge and gallstone. He previously changes diet and taking famotidine, and states this worked up until today. On arrival patient's vitals normal. Examination remarkable for reproducible tenderness palpation of the epigastrium. Gave the patient an initial dose of IV morphine along with fluids. Laboratory evaluation normal including normal CBC, CMP, urinalysis, and lipase. Due to his epigastric pain, I ordered some cardiac evaluation markers such as ECG, which was normal, as well as a chest x-ray. This also was unremarkable for any acute cardiopulmonary process. Patient's troponin also negative. Upon recheck, patient states he felt better but was still having the pain. Due to this I ordered a CT abdomen pelvis with contrast. This demonstrated evidence of distal colitis, and patient confirms that he has been having some left-sided abdominal pain. However this is not where the majority of his pain is, and he believes it is due to ulcers that he has been informed he has in the past. I will refer him again to general surgery and encouraged him to follow-up for further evaluation of this with potential upper endoscopy. Patient agrees with this plan. I will start him on Cipro and Flagyl for his colitis. Return precautions given. Medical Records I reviewed the patient's medical records. Lab Data I reviewed the patient's lab results. 05/13/23 23:10 05/13/23 23:10 Labs/Radiology: Radiology Impressions Chest X-Ray 05/13/23 23:04 IMPRESSION: No acute cardiopulmonary abnormality. Abdomen/Pelvis CT 05/14/23 00:01 IMPRESSION: Exam demonstrates features of distal colitis. Laboratory Results WBC 8.00 10^3/uL (3.29-11.43) 05/13/23 23:10 RBC 4.97 10^6/uL (3.85-5.65) 05/13/23 23:10 Hgb 15.30 g/dL (11.27-16.99) 05/13/23 23:10 Hct 44.7 % (37-53) 05/13/23 23:10 MCV 89.9 fl (82-101) 05/13/23 23:10 MCH 30.8 pg (27-33) 05/13/23 23:10 MCHC 34.2 g/dL (30-55) 05/13/23 23:10 RDW 12.4 % (12.1-15.1) 05/13/23 23:10 Plt Count 347 10^3/cmm (157-399) 05/13/23 23:10 MPV 9.2 fL (7.4-10.4) 05/13/23 23:10 Neut % (Auto) 51.3 % 05/13/23 23:10 Lymph % (Auto) 37.3 % 05/13/23 23:10 Angelina % (Auto) 7.3 % 05/13/23 23:10 Eos % (Auto) 3.4 % 05/13/23 23:10 Baso % (Auto) 0.4 % 05/13/23 23:10 Neut # (Auto) 4.12 10^3/uL (1.8-7.7) 05/13/23 23:10 Lymph # (Auto) 3.0 10^3/uL (0.8-4.8) 05/13/23 23:10 Angelina # (Auto) 0.6 10^3/uL (0.2-0.9) 05/13/23 23:10 Eos # (Auto) 0.3 10^3/uL (0.0-0.8) 05/13/23 23:10 Baso # (Auto) 0.0 10^3/uL (0.0-0.1) 05/13/23 23:10 Nucleated RBC % (auto) 0 % 05/13/23 23:10 Nucleated RBCs # 0.0 /100WBC 05/13/23 23:10 Sodium 141 mmol/L (136-145) 05/13/23 23:10 Potassium 3.9 mmol/L (3.5-5.1) 05/13/23 23:10 Chloride 105 mmol/L (98-107) 05/13/23 23:10 Carbon Dioxide 25 mmol/L (22-29) 05/13/23 23:10 Anion Gap 14.9 (5-19) 05/13/23 23:10 BUN 9 mg/dL (6-20) 05/13/23 23:10 Creatinine 0.6 mg/dL (0.7-1.2) L 05/13/23 23:10 GFR Calculation 149.2 mL/min (90-130) H 05/13/23 23:10 Glucose 106 mg/dL (65-115) 05/13/23 23:10 Calculated Osmolality 291 mOsm/kg (285-295) 05/13/23 23:10 Calcium 10.0 mg/dL (8.5-10.5) 05/13/23 23:10 Total Bilirubin 0.2 mg/dL (0.15-1.2) 05/13/23 23:10 AST 13 U/L (0-40) 05/13/23 23:10 ALT 22 U/L (0-41) 05/13/23 23:10 Alkaline Phosphatase 70 U/L (40-130) 05/13/23 23:10 Troponin T Baseline < 6 ng/L (0-15) 05/13/23 23:10 Total Protein 7.4 g/dL (6.6-8.7) 05/13/23 23:10 Albumin 4.7 g/dL (3.5-5.2) 05/13/23 23:10 Globulin 2.7 g/dL (1.3-4.6) 05/13/23 23:10 Lipase 55 U/L (13-60) 05/13/23 23:10 Urine Color Yellow (Yellow) 05/13/23 23:10 Urine Appearance Clear (CLEAR) 05/13/23 23:10 Urine pH 6 (5-7) 05/13/23 23:10 Ur Specific [place] 1.015 (1.005-1.030) 05/13/23 23:10 Urine Protein Neg (Negative) 05/13/23 23:10 Urine Glucose (UA) Norm (Normal) 05/13/23 23:10 Urine Ketones Negative (Negative) 05/13/23 23:10 Urine Blood Neg (Negative) 05/13/23 23:10 Urine Nitrate Negative (Negative) 05/13/23 23:10 Urine Bilirubin Neg (Negative) 05/13/23 23:10 Urine Urobilinogen Neg mg/dL (Negative) 05/13/23 23:10 Ur Leukocyte Esterase Negative (Negative) 05/13/23 23:10 All radiology interpretation(s) finalized by discharge Discharge Plan Discharge Patient Disposition: Home Clinical Impression: Colitis Condition: Stable Prescriptions: New Cipro 500 mg tablet 500 mg PO BID 10 Days Qty: 20 0RF metronidazole 500 mg tablet 500 mg PO BID 7 Days Qty: 14 0RF No Action tadalafil 20 mg tablet 20 mg PO DAILY PRN (Reason: sexual activity) Qty: 20 12RF Rx Instructions: administer approximately 30min before sexual activity; NO NITROGLYCERIN! diclofenac sodium [Voltaren Arthritis Pain] 1 % gel 2 g topical QID Qty: 100 3RF Rx Instructions: apply to single elbow, wrist or hand; for hand includes palm/fingers/back of hand polyethylene glycol 3350 [Miralax] 17 gram/dose powder 17 g PO DAILY Qty: 510 5RF cephalexin 250 mg capsule 250 mg PO TID Qty: 42 12RF lactulose 10 gram/15 mL solution See Rx Instructions .ROUTE .COMPLEX Qty: 473 5RF Dose Instruction: TAKE 30 ML BY MOUTH TWICE DAILY Rx Instructions: TAKE 30 ML BY MOUTH TWICE DAILY hydrocodone-acetaminophen 10-325 mg tablet 1 tab PO Q8H PRN (Reason: pain) 30 Days Qty: 90 0RF Protonix 40 mg tablet,delayed release (DR/EC) 40 mg PO BID Qty: 60 0RF Discharge Orders: Discharge ED (Routine); Ordered 05/14/23 Ordered By: Jesse Harrison Referrals: Igor Reyna MD [Primary Care Provider] - Discharge Diet: Usual diet Discharge Activity: Increase activity as tolerated Patient Instructions: Colitis (ED) Activity Restrictions/Additional Instructions: Follow-up with general surgery as discussed. Antibiotics as indicated. Plenty of fluids. Return with any new or worsening symptoms. Coding Level of Care Code ED Production Leader for Chg Fwd Documented by User: Robe Garcia DO 05/15/23 05:43 HPI - Abdominal Pain 2 General: Chief Complaint: Abdominal Pain Stated Complaint: Stomach pain Time Seen by Provider: 05/13/23 22:50 PFSH ED 2 PFSH: Medical History Chronic low back pain Erectile dysfunction Neurogenic bladder Recurrent UTI Acute back pain Acute radicular low back pain Unspecified fracture of unspecified thoracic vertebra, sequela Rotator cuff tear arthropathy Hx of spinal cord injury Encounter for long-term opiate analgesic use Back pain with history of spinal surgery Chronic radicular low back pain Opioid contract exists Surgical History History of back surgery Family History Denies family history of Anesthesia complication Social History Smoking and tobacco/nicotine status: current some day tobacco/nicotine user cigarettes Second hand smoke exposure: No Alcohol intake: never Substance/Drug Use: never Current occupational status: disabled Course 2 Vital Signs: Vital signs: Vital Signs Temperature 98.0 F 05/14/23 01:03 Pulse Rate 78 05/14/23 01:03 Respiratory Rate 16 05/14/23 01:03 Blood Pressure 126/92 05/14/23 01:03 Pulse Oximetry 98 05/14/23 01:03 Oxygen Delivery Me thod Room Air 05/13/23 22:49 MDM - Abdominal Pain Medical Decision Making Patient was seen and evaluated in the emergency department today due to epigastric pain onset today. Patient is having this pain in the past for which she was evaluated in the emergency department and diagnosed with biliary sludge and gallstone. He previously changes diet and taking famotidine, and states this worked up until today. On arrival patient's vitals normal. Examination remarkable for reproducible tenderness palpation of the epigastrium. Gave the patient an initial dose of IV morphine along with fluids. Laboratory evaluation normal including normal CBC, CMP, urinalysis, and lipase. Due to his epigastric pain, I ordered some cardiac evaluation markers such as ECG, which was normal, as well as a chest x-ray. This also was unremarkable for any acute cardiopulmonary process. Patient's troponin also negative. Upon recheck, patient states he felt better but was still having the pain. Due to this I ordered a CT abdomen pelvis with contrast. This demonstrated evidence of distal colitis, and patient confirms that he has been having some left-sided abdominal pain. However this is not where the majority of his pain is, and he believes it is due to ulcers that he has been informed he has in the past. I will refer him again to general surgery and encouraged him to follow-up for further evaluation of this with potential upper endoscopy. Patient agrees with this plan. I will start him on Cipro and Flagyl for his colitis. Return precautions given. Chart reviewed Lab Data 05/13/23 23:10 05/13/23 23:10 Labs/Radiology: Radiology Impressions Chest X-Ray 05/13/23 23:04 IMPRESSION: No acute cardiopulmonary abnormality. Abdomen/Pelvis CT 05/14/23 00:01 IMPRESSION: Exam demonstrates features of distal colitis. Laboratory Results WBC 8.00 10^3/uL (3.29-11.43) 05/13/23 23:10 RBC 4.97 10^6/uL (3.85-5.65) 05/13/23 23:10 Hgb 15.30 g/dL (11.27-16.99) 05/13/23 23:10 Hct 44.7 % (37-53) 05/13/23 23:10 MCV 89.9 fl (82-101) 05/13/23 23:10 MCH 30.8 pg (27-33) 05/13/23 23:10 MCHC 34.2 g/dL (30-55) 05/13/23 23:10 RDW 12.4 % (12.1-15.1) 05/13/23 23:10 Plt Count 347 10^3/cmm (157-399) 05/13/23 23:10 MPV 9.2 fL (7.4-10.4) 05/13/23 23:10 Neut % (Auto) 51.3 % 05/13/23 23:10 Lymph % (Auto) 37.3 % 05/13/23 23:10 Angelina % (Auto) 7.3 % 05/13/23 23:10 Eos % (Auto) 3.4 % 05/13/23 23:10 Baso % (Auto) 0.4 % 05/13/23 23:10 Neut # (Auto) 4.12 10^3/uL (1.8-7.7) 05/13/23 23:10 Lymph # (Auto) 3.0 10^3/uL (0.8-4.8) 05/13/23 23:10 Angelina # (Auto) 0.6 10^3/uL (0.2-0.9) 05/13/23 23:10 Eos # (Auto) 0.3 10^3/uL (0.0-0.8) 05/13/23 23:10 Baso # (Auto) 0.0 10^3/uL (0.0-0.1) 05/13/23 23:10 Nucleated RBC % (auto) 0 % 05/13/23 23:10 Nucleated RBCs # 0.0 /100WBC 05/13/23 23:10 Sodium 141 mmol/L (136-145) 05/13/23 23:10 Potassium 3.9 mmol/L (3.5-5.1) 05/13/23 23:10 Chloride 105 mmol/L (98-107) 05/13/23 23:10 Carbon Dioxide 25 mmol/L (22-29) 05/13/23 23:10 Anion Gap 14.9 (5-19) 05/13/23 23:10 BUN 9 mg/dL (6-20) 05/13/23 23:10 Creatinine 0.6 mg/dL (0.7-1.2) L 05/13/23 23:10 GFR Calculation 149.2 mL/min (90-130) H 05/13/23 23:10 Glucose 106 mg/dL (65-115) 05/13/23 23:10 Calculated Osmolality 291 mOsm/kg (285-295) 05/13/23 23:10 Calcium 10.0 mg/dL (8.5-10.5) 05/13/23 23:10 Total Bilirubin 0.2 mg/dL (0.15-1.2) 05/13/23 23:10 AST 13 U/L (0-40) 05/13/23 23:10 ALT 22 U/L (0-41) 05/13/23 23:10 Alkaline Phosphatase 70 U/L (40-130) 05/13/23 23:10 Troponin T Baseline < 6 ng/L (0-15) 05/13/23 23:10 Total Protein 7.4 g/dL (6.6-8.7) 05/13/23 23:10 Albumin 4.7 g/dL (3.5-5.2) 05/13/23 23:10 Globulin 2.7 g/dL (1.3-4.6) 05/13/23 23:10 Lipase 55 U/L (13-60) 05/13/23 23:10 Urine Color Yellow (Yellow) 05/13/23 23:10 Urine Appearance Clear (CLEAR) 05/13/23 23:10 Urine pH 6 (5-7) 05/13/23 23:10 Ur Specific [place] 1.015 (1.005-1.030) 05/13/23 23:10 Urine Protein Neg (Negative) 05/13/23 23:10 Urine Glucose (UA) Norm (Normal) 05/13/23 23:10 Urine Ketones Negative (Negative) 05/13/23 23:10 Urine Blood Neg (Negative) 05/13/23 23:10 Urine Nitrate Negative (Negative) 05/13/23 23:10 Urine Bilirubin Neg (Negative) 05/13/23 23:10 Urine Urobilinogen Neg mg/dL (Negative) 05/13/23 23:10 Ur Leukocyte Esterase Negative (Negative) 05/13/23 23:10 Discharge Plan Discharge Patient Disposition: Home Clinical Impression: Colitis Condition: Stable Prescriptions: New Cipro 500 mg tablet 500 mg PO BID 10 Days Qty: 20 0RF metronidazole 500 mg tablet 500 mg PO BID 7 Days Qty: 14 0RF No Action tadalafil 20 mg tablet 20 mg PO DAILY PRN (Reason: sexual activity) Qty: 20 12RF Rx Instructions: administer approximately 30min before sexual activity; NO NITROGLYCERIN! diclofenac sodium [Voltaren Arthritis Pain] 1 % gel 2 g topical QID Qty: 100 3RF Rx Instructions: apply to single elbow, wrist or hand; for hand includes palm/fingers/back of hand polyethylene glycol 3350 [Miralax] 17 gram/dose powder 17 g PO DAILY Qty: 510 5RF cephalexin 250 mg capsule 250 mg PO TID Qty: 42 12RF lactulose 10 gram/15 mL solution See Rx Instructions .ROUTE .COMPLEX Qty: 473 5RF Dose Instruction: TAKE 30 ML BY MOUTH TWICE DAILY Rx Instructions: TAKE 30 ML BY MOUTH TWICE DAILY hydrocodone-acetaminophen 10-325 mg tablet 1 tab PO Q8H PRN (Reason: pain) 30 Days Qty: 90 0RF Protonix 40 mg tablet,delayed release (DR/EC) 40 mg PO BID Qty: 60 0RF Discharge Orders: Discharge ED (Routine); Ordered 05/14/23 Ordered By: Jesse Harrison Referrals: Igor Reyna MD [Primary Care Provider] - Discharge Diet: Usual diet Discharge Activity: Increase activity as tolerated Patient Instructions: Colitis (ED) Activity Restrictions/Additional Instructions: Follow-up with general surgery as discussed. Antibiotics as indicated. Plenty of fluids. Return with any new or worsening symptoms. Coding Level of Care Code ED Production Leader for Davdi Hassan
[2023-05-13 23:29] LABS: Bilirubin Urine Neg (Negative); Blood Urine Neg (Negative); Glucose Urine UA Norm (Normal); Ketones Urine Negative (Negative); Leukocyte Esterase Urine Negative (Negative); Nitrate Urine Negative (Negative); Protein Urine Neg (Negative); Specific Gravity, Urine 1.015 (1.005-1.030); Urine Appearance Clear (CLEAR); Urine Color Yellow (Yellow); Urobilinogen Urine Neg (Negative); pH Urine 6 (5-7)
[2023-05-13 23:30] LABS: Basophils % 0.4 %; Eosinophils # 0.3 10^3/uL (0.0-0.8); Eosinophils % 3.4 %; Hematocrit 44.7 % (37-53); Lymphocytes % 37.3 %; Mean Corpuscular HGB Conc 34.2 g/dL (30-55); Mean Corpuscular Hemoglobin 30.8 pg (27-33); Mean Corpuscular Volume 89.9 fl (82-101); Mean Platelet Volume 9.2 fL (7.4-10.4); Monocytes # 0.6 10^3/uL (0.2-0.9); Monocytes % 7.3 %; Neutrophils # 4.12 10^3/uL (1.8-7.7); Neutrophils % 51.3 %; Nucleated Red Blood Cells % 0 %; Platelet Count 347 10^3/cmm (157-399); Red Blood Count 4.97 10^6/uL (3.85-5.65); Red Cell Distribution Width 12.4 % (12.1-15.1)
[2023-05-13 23:36] LABS: Troponin(5th) Baseline < 6 ng/L (0-15)
[2023-05-13 23:37] LABS: Alanine Aminotransferase 22 U/L (0-41); Albumin Level 4.7 g/dL (3.5-5.2); Alkaline Phosphatase 70 U/L (40-130); Anion Gap 14.9 (5-19); Aspartate Amino Transferase 13 U/L (0-40); Blood Urea Nitrogen 9 mg/dL (6-20); Carbon Dioxide 25 mmol/L (22-29); Chloride 105 mmol/L (98-107); Creatinine Clr Calc Pharmacy 170.5222; Globulin 2.7 g/dL (1.3-4.6); Glomerular Filtration Rate 149.2 mL/min (90-130); Glucose 106 mg/dL (65-115); Lipase 55 U/L (13-60); Osmolality Calculated 291 mOsm/kg (285-295); Potassium 3.9 mmol/L (3.5-5.1); Sodium 141 mmol/L (136-145); Total Bilirubin 0.2 mg/dL (0.15-1.2); Total Protein 7.4 g/dL (6.6-8.7)
--- NOTE | 2023-05-14 00:01 | CTR_ITS ---
PROCEDURE INFORMATION: Exam: CT Abdomen And Pelvis With Contrast Exam date and time: 05/14/2023 12:32 AM Age: 38 years old Clinical indication: Abdominal pain; Epigastric; Prior surgery; Surgery date: 6+ months; Surgery type: Back surgery- titanium rods removed 4 years ago. ; Additional info: Epigastric pain TECHNIQUE: Imaging protocol: Computed tomography of the abdomen and pelvis with contrast. Radiation optimization: All CT scans at this facility use at least one of these dose optimization techniques: automated exposure control; mA and/or kV adjustment per patient size (includes targeted exams where dose is matched to clinical indication); or iterative reconstruction. Contrast material: OMNI 350; Contrast volume: 100 ml; Contrast route: INTRAVENOUS (IV); COMPARISON: CT abdomen pelvis w con* [id number] 03/06/2023 5:13 AM RADIATION DOSE METRICS: Total DLP (mGy-cm): 453.75 FINDINGS: Lungs: Clear basilar lung parenchyma. Pleural spaces: No pleural fluid. Heart: Normal heart size. Liver: In the anterior segment right hepatic lobe there is a circumscribed nodule with peripheral nodular enhancement compelling for hemangioma, unchanged from prior exams. No new or suspicious liver lesion is demonstrated. Gallbladder and bile ducts: Distended gallbladder. No high density gallstones or biliary tree dilation. Pancreas: Normal. No ductal dilation. Spleen: Normal spleen with small inferior accessory spleen. Adrenal glands: Normal configuration. Kidneys and ureters: Kidneys enhance symmetrically and demonstrate no evidence of mass, calculus, obstruction, or inflammation. Stomach and bowel: Postprandial stomach. Normal caliber small bowel. Beginning just proximal to the splenic flexure, there is diffuse colonic decompression, mild mural thickening, and mucosal enhancement compelling for colitis. Proximal colon is normal. Appendix: Normal appendix is confirmed. Intraperitoneal space: No free air. No significant fluid collection. Vasculature: Normal caliber arterial structures. Lymph nodes: No enlarged lymph nodes. Urinary bladder: Unremarkable as visualized. Reproductive: Physiologic appearance for age. Bones/joints: Spine is notable for screw tracks following removal of fusion hardware. There is confluent well incorporated posterior element bone graft. No acute skeletal abnormality. Soft tissues: Unremarkable. CT/CT abdomen pelvis w con* [id number] IMPRESSION: Exam demonstrates features of distal colitis.
[2023-05-14] MEDS: lidocaine 2% viscous 15 ML, aluminum-mag hydrox-simethicon 30 ML, sucralfate oral liq 1 GM PO (00:10)
[2023-05-14] MEDS: iohexol 350 mg/mL 500 mL Btl (per mL) IV (00:34)
[2023-05-14 01:03] VITALS: BP 126/92; PULSE 78; RESP 16; TEMP 36.7; O2SAT 98
--- NOTE | 2023-05-14 07:23 | DCPLANNER ---
Message sent to General surgery for colitis follow up
== END 2023-05-14 01:09 | disposition home or self-care (01) ==
PROVIDERS: Emergency Provider Physician Assistant; PCP Family Medicine
DX: K52.9 Noninfective gastroenteritis and colitis, unspecified (principal); F17.210 Nicotine dependence, cigarettes, uncomplicated
CPT/HCPCS: 71045; 74177; 80053; 81003; 83690; 84484; 85025; 93005; 96361; 96374; 99285; J2270; J7030; Q9967

== ENCOUNTER → 2023-05-23 13:35 | Outpatient (BNVA) | payer MEDICAID, SELFPAY | PROVIDERS: PCP Family Medicine; Referring Provider Physician Assistant; Visit Provider Surgery | DX: K21.9 Gastro-esophageal reflux disease without esophagitis; R10.13 Epigastric pain; K80.20 Calculus of gallbladder without cholecystitis without obstruction | CPT/HCPCS: 99204 ==

== ENCOUNTER 2023-06-12 11:00 | Day surgery (SDC) | payer MEDICAID, SELFPAY ==
[2023-06-12 11:33] VITALS: BP 114/73; PULSE 87; RESP 16; TEMP 36.4; O2SAT 98
[2023-06-12 11:34] VITALS: BMI 21.6
[2023-06-12] MEDS: sodium chloride 0.9% 1,000 ML 30 ML IV (11:45)
--- NOTE | 2023-06-12 12:22 | ANES.PREANE2 ---
Pre-Anesthetic Assessment Height/Weight: Height 1.8 m Weight 70.307 kg Temp Pulse Resp BP Pulse Ox O2 Del Method 97.5 F L 87 16 114/73 98 Room Air 06/12/23 11:33 06/12/23 11:33 06/12/23 11:33 06/12/23 11:33 06/12/23 11:33 06/12/23 11:33 Preop Diagnosis: GERD Operation Date: 06/12/23 12:00 Proposed Procedures p EGD(Not Applicable) - Norberto Garcia DO Familial anesthetic complications: none Was Beta Diana taken within 24 hours: N/A Was Clonidine taken within 24 hours: N/A Last intake: Intake Last Liquid Date 06/11/23 Last Liquid Time 21:00 Last Solid Date 06/11/23 Last Solid Time 22:00 Last Intake: 22:00 Social Tobacco (1/2 PPD) and No alcohol Exam alert, oriented x 3, clear to auscultation bilaterally and regular rate & rhythm Airway Submandibular: within normal limits Cervical ROM: within normal limits Mallampati: Class I Dentition: partials (upper) Pulmonary None reported CV/HEM None reported None reported Hepatic None reported GI Gastroesophageal Reflux Disease Metabolic None reported Musc/skel Lower Back Pain and Osteoarthritis/DJD Neuropsych None reported Anesthetic Plan ASA status: 2 Anesthesia: MAC Medications/Allergies Home Medications Medication Instructions Recorded Confirmed Last Taken Type tadalafil 20 mg tablet 20 mg PO DAILY PRN sexual activity 08/08/22 06/10/23 Unknown Rx #20 tabs cephalexin 250 mg capsule 250 mg PO TID #42 caps 10/15/22 06/10/23 06/09/23 Rx diclofenac sodium 1 % topical gel 2 g topical QID inflammation elbow 04/02/23 06/10/23 Unknown Rx (Voltaren Arthritis Pain) #100 grams hydrocodone 10 mg-acetaminophen 1 tab PO Q8H PRN pain 30 days #90 05/14/23 06/10/23 06/10/23 Rx 325 mg tablet tabs pantoprazole 40 mg tablet,delayed 40 mg PO BID 6 weeks #84 tabs 05/23/23 06/10/23 06/10/23 Rx release (Protonix) lactulose 10 gram/15 mL oral 30 ml PO BID 06/10/23 06/10/23 06/10/23 History solution Allergies Allergy/AdvReac Type Severity Reaction Status Date / Time linaclotide [From Linzess] Allergy vomiting Verified 05/27/23 09:05 lubiprostone [From Amitiza] Allergy vomiting Verified 05/27/23 09:05 Sulfa (Sulfonamide Allergy na Verified 05/27/23 09:05 Antibiotics) Nitrofuran Analogues AdvReac na Verified 05/27/23 09:05 Current Medications Generic Name Dose Route Start Last Admin Trade Name Freq PRN Reason Stop Dose Admin Sodium Chloride 1,000 mls @ 30 mls/hr 06/12/23 11:45 06/12/23 11:45 Sodium Chloride 0.9% IV 06/13/23 11:44 30 mls/hr .Q24H MANUEL Administration PFSH Anesthesia Medical History Cholelithiasis Chronic low back pain Erectile dysfunction Neurogenic bladder Recurrent UTI Acute back pain Acute radicular low back pain Unspecified fracture of unspecified thoracic vertebra, sequela Rotator cuff tear arthropathy Hx of spinal cord injury Encounter for long-term opiate analgesic use Back pain with history of spinal surgery Chronic radicular low back pain Opioid contract exists Surgical History History of back surgery Family History Denies family history of Anesthesia complication Social History Smoking and tobacco/nicotine status: current some day tobacco/nicotine user cigarettes Second hand smoke exposure: No Alcohol intake: never Substance/Drug Use: never Current occupational status: disabled Data Anesthesia Cardiac Studies: No Data to Display
--- NOTE | 2023-06-12 12:44 | W.PM.OPSUD ---
Surgery/Procedure H&P Update DATE OF PROCEDURE: June 12, 2023 DATE H&P PERFORMED: 05/23/23 H&P UPDATE INFORMATION: I have reviewed H&P completed within last 30 days, I have examined patient prior to procedure and No changes to prior documentation PREOP DIAGNOSIS: GERD PLANNED PROCEDURE: Operation Date: 06/12/23 12:00 Proposed Procedures p EGD(Not Applicable) - Norberto Garcia DO
[2023-06-12 12:55] VITALS: BP 115/75; PULSE 85; RESP 16; TEMP 36.1; O2SAT 97
--- NOTE | 2023-06-12 14:10 | ANE.PACU2 ---
Inpatient post-anesthesia follow up: Vital signs: Temperature 97.0 F Pulse Rate 85 Respiratory Rate 16 Blood Pressure 115/75 Pulse Oximetry 97 Oxygen Delivery Me thod Room Air Oxygen Flow Rate Fraction of Inspir ed Oxygen Hydration adequate: Yes Nausea and vomiting: No Mental status: Baseline Additional Comments: no known anesthetic complications noted
== END 2023-06-12 13:26 | disposition home or self-care (01) ==
PROVIDERS: PCP Family Medicine; Visit Provider Surgery
PROC: 0DJ08ZZ Inspection of Upper Intestinal Tract, Via Natural or Artificial Opening Endoscopic (ICD-10-PCS; CPT 43235; principal; 2023-06-12 12:00)
DX: K21.9 Gastro-esophageal reflux disease without esophagitis (principal); F17.200 Nicotine dependence, unspecified, uncomplicated
CPT/HCPCS: 43239; 88305; J2704; J7030

== ENCOUNTER 2023-06-15 21:54 | Emergency (ER) | payer MEDICAID, SELFPAY ==
[2023-06-15 22:03] VITALS: BP 137/77; PULSE 90; RESP 20; TEMP 36.6; O2SAT 100; BMI 20.9
--- NOTE | 2023-06-15 22:11 | ECG_ITS ---
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 Measurements Intervals [place] Rate: 96 P: 75 CT: 159 QRS: 83 QRSD: 98 T: 81 QT: 348 QTc: 441 Interpretive Statements SINUS RHYTHM ST ELEVATION, PROBABLY EARLY REPOLARIZATION [ST ELEVATION WITH NORMALLY INFLECTED T-WAVE] Compared to ECG 05/13/2023 23:22:15 ST (T wave) deviation now present Early repolarization now present Electronically Signed On 06-16-2023 8:13:42 CDT by Jamil Pressley M.D. [id number] f
--- NOTE | 2023-06-15 22:11 | XRR_ITS ---
PROCEDURE INFORMATION: Exam: XR Chest Exam date and time: 06/15/2023 10:28 PM Age: 38 years old Clinical indication: Angina pectoris; Patient HX: Sudden onset epigastric pain TECHNIQUE: Imaging protocol: Radiologic exam of the chest. Views: 1 view. COMPARISON: CR (CHEST, ) 05/13/2023 11:11 PM FINDINGS: Lungs: Unremarkable. No consolidation. Pleural spaces: Unremarkable. No pleural effusion. No pneumothorax. Heart/Mediastinum: Unremarkable. No cardiomegaly. Bones/joints: Unremarkable. XR/XR chest 1V portable 19302 IMPRESSION: No acute findings.
[2023-06-15] MEDS: ondansetron 2 mg/ML SDV 2 mL 4 MG IVP (22:24)
[2023-06-15 22:25] VITALS: RESP 15
[2023-06-15] MEDS: morphine 4 mg/mL SDV 1 mL IVP (22:25)
[2023-06-15 22:38] VITALS: BP 133/74; PULSE 89; O2SAT 99
[2023-06-15 22:47] LABS: Basophils % 0.3 %; Eosinophils # 0.2 10^3/uL (0.0-0.8); Eosinophils % 1.6 %; Hematocrit 46.5 % (37-53); Lymphocytes % 40.4 %; Mean Corpuscular Hemoglobin 30.9 pg (27-33); Mean Corpuscular Volume 90.8 fl (82-101); Mean Platelet Volume 9.5 fL (7.4-10.4); Monocytes # 0.7 10^3/uL (0.2-0.9); Neutrophils # 5.02 10^3/uL (1.8-7.7); Neutrophils % 50.5 %; Nucleated Red Blood Cells % 0 %; Platelet Count 348 10^3/cmm (157-399); Red Blood Count 5.12 10^6/uL (3.85-5.65); Red Cell Distribution Width 12.5 % (12.1-15.1); White Blood Count 9.95 10^3/uL (3.29-11.43)
[2023-06-15] MEDS: lidocaine 2% viscous 15 ML, aluminum-mag hydrox-simethicon 30 ML, sucralfate oral liq 1 GM PO (22:53)
[2023-06-15 22:56] VITALS: RESP 20
[2023-06-15] MEDS: sodium chloride 0.9% 1,000 ML 999 ML IV (22:56)
[2023-06-15] MEDS: HYDROmorphone 1 mg/mL INJ 1 mL IVP (22:56)
--- NOTE | 2023-06-15 22:56 | ED_ITS ---
HPI - Chest Pain 2 General: Chief Complaint: Chest Pain Stated Complaint: Upper Stomach Pain and Back Time Seen by Provider: 06/15/23 22:10 History of Present Illness: Patient presents to the ER with epigastric pain that radiates up into his chest. This all started approximately 1 hour ago. Pain also radiates to his back. Patient rates pain a 10 out of 10 at this time he denies any shortness of breath. Patient does say he has a bad gallbladder and is post to have removed in a couple weeks. Review of Systems 2 General: Reports: 10 or more systems reviewed and unremarkable except in HPI and below PFSH ED 2 PFSH: Medical History Cholelithiasis Chronic low back pain Erectile dysfunction Neurogenic bladder Recurrent UTI Acute back pain Acute radicular low back pain Unspecified fracture of unspecified thoracic vertebra, sequela Rotator cuff tear arthropathy Hx of spinal cord injury Encounter for long-term opiate analgesic use Back pain with history of spinal surgery Chronic radicular low back pain Opioid contract exists Surgical History History of back surgery Family History Denies family history of Anesthesia complication Social History Smoking and tobacco/nicotine status: current some day tobacco/nicotine user cigarettes Second hand smoke exposure: No Alcohol intake: never Substance/Drug Use: never Current occupational status: disabled Physical Exam 2 Const: COMMON NORMALS: average body habitus, patient oriented x3, no limitations, healthy appearing, alert and well nourished Neck/C-Spine: COMMON NORMALS: no JVD Chest: COMMONS NORMALS: normal inspection of the chest and normal palpation of entire chest wall Resp: COMMON NORMALS: normal respiratory effort, No retractions, No use of accessory muscles and clear to auscultation bilaterally AUSCULTATION: clear to auscultation bilaterally Cardio: COMMON NORMALS: no JVD, regular rate, regular rhythm, S1 normal heart sound present, S2 normal heart sound present, No gallops present (Cardio), No clicks present (Cardio), No murmurs present (Cardio) and No rub (Cardio) R ATE: regular rate RHYTHM: regular rhythm HEART SOUNDS: S1 normal heart sound present and S2 normal heart sound present GI: COMMON NORMALS: Normal to inspection, nondistended, normoactive bowel sounds present, Soft to palpation, non-tender, No hepatosplenomegaly present and no masses PALPATION: Yes Soft to palpation and Yes No hepatosplenomegaly present Neuro: COMMON NORMALS: patient oriented x3 SENSORIUM/ORIENTATION: Yes alert Course 2 Vital Signs: Vital signs: Vital Signs Temperature 97.9 F 06/15/23 22:03 Pulse Rate 90 06/15/23 22:03 Respiratory Rate 20 H 06/15/23 22:56 Blood Pressure 137/77 06/15/23 22:03 Pulse Oximetry 100 06/15/23 22:03 Oxygen Delivery Me thod Room Air 06/15/23 22:03 MDM - Chest Pain Medical Decision Making Patient had lab work chest x-ray EKGs urine urine drug screen, all of which was essentially benign. Patient was given morphine, Dilaudid, Zofran and a GI cocktail which relieved his pain. His thought is still coming from his gallbladder and therefore needs to follow-up with a surgeon to have it taken out. Patient be prescribed a small dose of pain medicine to go home on. Upon further notice patient is currently on hydrocodone 11/27/2024 3 pills a day and just got them filled approximately 3 days ago. We will not be prescribed prescribing any medication. Differential Diagnosis Unlikely acute massive pulmonary embolism, acute respiratory failure, acute myocardial infarction, cardiac arrest or sudden cardiac Medical Records I reviewed the patient's medical records. Lab Data I reviewed the patient's lab results. 06/15/23 22:26 06/15/23 22: Radiology Impressions Chest X-Ray 06/15/23 22:11 IMPRESSION: No acute findings. Laboratory Results WBC 9.95 10^3/uL (3.29-11.43) 06/15/23: RBC 5.12 10^6/uL (3.85-5.65) 06/15/23: Hgb 15.80 g/dL (11.27-16.99) 06/15/23 22: Hct 46.5 % (37-53) 06/15/23: MCV 90.8 fl (82-101) 06/15/23: MCH 30.9 pg (27-33) 06/15/23: MCHC 34.0 g/dL (30-55) 06/15/23: RDW 12.5 % (12.1-15.1) 06/15/23: Plt Count 348 10^3/cmm (157-399) 06/15/23: MPV 9.5 fL (7.4-10.4) 06/15/23: Neut % (Auto) 50.5 % 06/15/23: Lymph % (Auto) 40.4 % 06/15/23: [place] % (Auto) 7.0 % 06/15/23: Eos % (Auto) 1.6 % 06/15/23: Baso % (Auto) 0.3 % 06/15/23: Neut # (Auto) 5.02 10^3/uL (1.8-7.7) 06/15/23: Lymph # (Auto) 4.0 10^3/uL (0.8-4.8) 06/15/23: [place] # (Auto) 0.7 10^3/uL (0.2-0.9) 06/15/23: Eos # (Auto) 0.2 10^3/uL (0.0-0.8) 06/15/23: Baso # (Auto) 0.0 10^3/uL (0.0-0.1) 06/15/23: Nucleated RBC % (auto) 0 % 06/15/23: Nucleated RBCs # 0.0 /100WBC 06/15/23 22: Sodium 134 mmol/L (136-145) L 06/15/23 22: Potassium 4.5 mmol/L (3.5-5.1) 06/15/23: Chloride 99 mmol/L (98-107) 06/15/23: Carbon Dioxide 19 mmol/L (22-29) L 06/15/23: Anion Gap 20.5 (5-19) H 06/15/23: BUN 8 mg/dL (6-20) 06/15/23: Creatinine 0.6 mg/dL (0.7-1.2) L 06/15/23 22: GFR Calculation 149.2 mL/min (90-130) H 06/15/23 22: Glucose 91 mg/dL (65-115) 06/15/23 22: Calculated Osmolality 276 mOsm/kg (285-295) L 06/15/23 22: Calcium 10.1 mg/dL (8.5-10.5) 06/15/23: Total Bilirubin 0.4 mg/dL (0.15-1.2) 06/15/23 22: AST 21 U/L (0-40) 06/15/23 22: ALT 22 U/L (0-41) 06/15/23 22: Alkaline Phosphatase 66 U/L (40-130) 06/15/23 22: Troponin T Baseline < 6 ng/L (0-15) 06/15/23 22:26 Total Protein 8.4 g/dL (6.6-8.7) 06/15/23 22: Albumin 4.7 g/dL (3.5-5.2) 06/15/23 22: Globulin 3.7 g/dL (1.3-4.6) 06/15/23 22: Lipase 65 U/L (13-60) H 06/15/23 22:26 Urine Color Yellow (Yellow) 06/16/23 00:04 Urine Appearance Clear (CLEAR) 06/16/23 00:04 Urine pH 6.5 (5-7) 06/16/23 00:04 Ur Specific [place] 1.005 (1.005-1.030) 06/16/23 00:04 Urine Protein Neg (Negative) 06/16/23 00:04 Urine Glucose (UA) Norm (Normal) 06/16/23 00:04 Urine Ketones 2+ (Negative) H 06/16/23 00:04 Urine Blood Neg (Negative) 06/16/23 00:04 Urine Nitrate Negative (Negative) 06/16/23 00:04 Urine Bilirubin Neg (Negative) 06/16/23 00:04 Urine Urobilinogen Neg mg/dL (Negative) 06/16/23 00:04 Ur Leukocyte Esterase Negative (Negative) 06/16/23 00:04 Urine Opiates Screen Positive ng/mL (Negative) H 06/16/23 00:04 Ur Barbiturates Screen Negative ng/mL (Negative) 06/16/23 00:04 Ur Phencyclidine Scrn Negative ng/mL (Negative) 06/16/23 00:04 Ur Amphetamines Screen Negative ng/mL (Negative) 06/16/23 00:04 U Benzodiazepines Scrn Negative ng/mL (Negative) 06/16/23 00:04 Urine Cocaine Screen Negative ng/mL (Negative) 06/16/23 00:04 U Marijuana (THC) Screen Negative ng/mL (Negative) 06/16/23 00:04 All radiology interpretation(s) finalized by discharge Discharge Plan Discharge Patient Disposition: Home Clinical Impression: Biliary colic Condition: Stable Prescriptions: No Action tadalafil 20 mg tablet 20 mg PO DAILY PRN (Reason: sexual activity) Qty: 20 12RF Rx Instructions: administer approximately 30min before sexual activity; NO NITROGLYCERIN! diclofenac sodium [Voltaren Arthritis Pain] 1 % gel 2 g topical QID Qty: 100 3RF Rx Instructions: apply to single elbow, wrist or hand; for hand includes palm/fingers/back of hand Protonix 40 mg tablet,delayed release (DR/EC) 40 mg PO BID 42 Days Qty: 84 1RF cephalexin 250 mg capsule 250 mg PO TID Qty: 42 12RF hydrocodone-acetaminophen 10-325 mg tablet 1 tab PO Q8H PRN (Reason: pain) 30 Days Qty: 90 0RF lactulose 10 gram/15 mL solution 30 ml PO BID Rx Instructions: TAKE 30 ML BY MOUTH TWICE DAILY ondansetron 8 mg tablet,disintegrating 8 mg PO Q8H PRN (Reason: nausea and vomiting) 7 Days Qty: 20 0RF Discharge Orders: Discharge ED (Routine); Ordered 06/16/23 Ordered By: Michel Briggs Referrals: Igor Reyna MD [Primary Care Provider] - 1 week Patient Instructions: Abdominal Pain (ED), Opioid Safety, Pain Management Activity Restrictions/Additional Instructions: Please follow back up with your surgeon and talk about getting your gallbladder out sooner than later as this may help your pain. Coding Level of Care Code ED Sanitation Tank Washer for aDvid Hassan
[2023-06-15 23:08] VITALS: BP 137/88; PULSE 114; O2SAT 97
[2023-06-15 23:17] LABS: Albumin Level 4.7 g/dL (3.5-5.2); Alkaline Phosphatase 66 U/L (40-130); Blood Urea Nitrogen 8 mg/dL (6-20); Calcium 10.1 mg/dL (8.5-10.5); Carbon Dioxide 19 mmol/L (22-29); Chloride 99 mmol/L (98-107); Creatinine Clr Calc Pharmacy 167.5824; Globulin 3.7 g/dL (1.3-4.6); Glomerular Filtration Rate 149.2 mL/min (90-130); Glucose 91 mg/dL (65-115); Lipase 65 U/L (13-60); Osmolality Calculated 276 mOsm/kg (285-295); Sodium 134 mmol/L (136-145); Total Bilirubin 0.4 mg/dL (0.15-1.2); Total Protein 8.4 g/dL (6.6-8.7)
[2023-06-15 23:19] LABS: Alanine Aminotransferase 22 U/L (0-41); Anion Gap 20.5 (5-19); Aspartate Amino Transferase 21 U/L (0-40); Potassium 4.5 mmol/L (3.5-5.1)
[2023-06-15 23:31] LABS: Troponin(5th) Baseline < 6 ng/L (0-15)
[2023-06-15 23:38] VITALS: BP 140/91; PULSE 79; O2SAT 99
[2023-06-16 00:10] LABS: Add Urine Microscopic? NO; Charge for UA Resulting for Rev
--- NOTE | 2023-06-16 00:11 | ECG_ITS ---
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 Measurements Intervals [place] Rate: 75 P: 52 [place]: 178 QRS: 71 QRSD: 101 T: 49 QT: 374 QTc: 418 Interpretive Statements SINUS RHYTHM Compared to ECG 06/15/2023 21:59:45 ST (T wave) deviation no longer present Early repolarization no longer present Electronically Signed On 06-16-2023 8:18:18 CDT by Jamil Pressley M.D. [id number]
[2023-06-16 00:16] LABS: Bilirubin Urine Neg (Negative); Blood Urine Neg (Negative); Glucose Urine UA Norm (Normal); Ketones Urine 2+ (Negative); Leukocyte Esterase Urine Negative (Negative); Nitrate Urine Negative (Negative); Protein Urine Neg (Negative); Specific Gravity, Urine 1.005 (1.005-1.030); Urine Appearance Clear (CLEAR); Urine Color Yellow (Yellow); Urobilinogen Urine Neg (Negative); pH Urine 6.5 (5-7)
[2023-06-16] MEDS: HYDROmorphone 1 mg/mL INJ 1 mL 0.5 MG IVP (00:33)
[2023-06-16 00:45] VITALS: BP 131/96; PULSE 76; O2SAT 98
[2023-06-16 01:55] LABS: Amphetamines Screen Urine Negative (Negative); Barbiturates Screen Urine Negative (Negative); Benzodiazepines Screen Urine Negative (Negative); Cocaine Screen Urine Negative (Negative); Opiate Screen Urine Positive (Negative); PCP Screen Urine Negative (Negative); THC Screen Urine Negative (Negative)
[2023-06-16 02:00] VITALS: BP 115/79; PULSE 77; O2SAT 97
[2023-06-16 02:31] LABS: Troponin 5 2HR Delta 0.00001 ABS# (0-10)
[2023-06-16 03:16] VITALS: BP 116/71; PULSE 76; O2SAT 97
== END 2023-06-16 03:17 | disposition home or self-care (01) ==
PROVIDERS: Emergency Medicine; Emergency Provider Emergency Medicine; PCP Family Medicine
DX: K80.50 Calculus of bile duct without cholangitis or cholecystitis without obstruction (principal); F17.210 Nicotine dependence, cigarettes, uncomplicated
CPT/HCPCS: 36415; 71045; 80053; 80306; 81003; 83690; 84484; 85025; 93005; 96361; 96374; 96375; 96376; 99285; J1170; J2270; J2405; J7030

== ENCOUNTER 2023-06-17 04:56 | Emergency (ER) | payer MEDICAID, SELFPAY ==
[2023-06-17 04:57] VITALS: BP 140/87; PULSE 86; RESP 18; TEMP 36.6; O2SAT 98; BMI 20.9
--- NOTE | 2023-06-17 04:57 | ECG_ITS ---
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 Measurements Intervals [place] Rate: 84 P: 58 [place]: 168 QRS: 74 QRSD: 97 T: 51 QT: 363 QTc: 430 Interpretive Statements SINUS RHYTHM WITH SINUS ARRHYTHMIA Compared to ECG 06/16/2023 00:19:46 No significant changes Electronically Signed On 06-17-2023 15:02:34 CDT by Jamil Pressley M.D. [id number] f
--- NOTE | 2023-06-17 05:06 | ED_ITS ---
HPI - Abdominal Pain 2 General: Chief Complaint: Abdominal Pain Stated Complaint: Upper Stomach Pain Time Seen by Provider: 06/17/23 05:04 History of Present Illness: Presents to the ER with complaints of epigastric pain. Patient says his gallbladder is acting up again. He was seen a couple days ago by myself and ER for the same thing he says he is feeling is exactly the same dull aching all a with nausea. He said is not as bad tonight as it was the the other night. This started several hours ago but it got worse to the patient just could not put up with it. Patient is chronically on hydrocodone 10 mg 1 3 times a day and he said this is not touching it. Patient denies any fever Review of Systems 2 General: Reports: 10 or more systems reviewed and unremarkable except in HPI and below PFSH ED 2 PFSH: Medical History Cholelithiasis Chronic low back pain Erectile dysfunction Neurogenic bladder Recurrent UTI Acute back pain Acute radicular low back pain Unspecified fracture of unspecified thoracic vertebra, sequela Rotator cuff tear arthropathy Hx of spinal cord injury Encounter for long-term opiate analgesic use Back pain with history of spinal surgery Chronic radicular low back pain Opioid contract exists Surgical History History of back surgery Family History Denies family history of Anesthesia complication Social History Smoking and tobacco/nicotine status: current some day tobacco/nicotine user cigarettes Second hand smoke exposure: No Alcohol intake: never Substance/Drug Use: never Current occupational status: disabled Physical Exam 2 Const: COMMON NORMALS: no acute distress, average body habitus, patient oriented x3, no limitations, healthy appearing, alert and well nourished HENMT: COMMON NORMALS: normocephalic, atraumatic, hearing grossly normal bilaterally, external ears normal, Normal external nose present, moist oral mucous membranes and oropharynx normal HEAD & SCALP: normocephalic and atraumatic NOSE: Normal external nose present EXTERNAL EAR: Yes external ears normal Neck/C-Spine: COMMON NORMALS: no JVD Chest: COMMONS NORMALS: normal inspection of the chest and normal palpation of entire chest wall Resp: COMMON NORMALS: normal respiratory effort, No retractions, No use of accessory muscles and clear to auscultation bilaterally AUSCULTATION: clear to auscultation bilaterally Cardio: COMMON NORMALS: no JVD, regular rate, regular rhythm, S1 normal heart sound present, S2 normal heart sound present, No gallops present (Cardio), No clicks present (Cardio), No murmurs present (Cardio) and No rub (Cardio) R ATE: regular rate RHYTHM: regular rhythm HEART SOUNDS: S1 normal heart sound present and S2 normal heart sound present GI: COMMON NORMALS: Normal to inspection, nondistended, normoactive bowel sounds present, Soft to palpation and No hepatosplenomegaly present; negative for non-tender (Mildly tender to palpate over epigastric, right upper quadrant) PALPATION: Yes Soft to palpation and Yes No hepatosplenomegaly present Neuro: COMMON NORMALS: patient oriented x3 SENSORIUM/ORIENTATION: Yes alert Course 2 Vital Signs: Vital signs: Vital Signs Temperature 97.8 F 06/17/23 04:57 Pulse Rate 92 06/17/23 05:39 Respiratory Rate 19 H 06/17/23 05:39 Blood Pressure 133/85 06/17/23 05:39 Pulse Oximetry 100 06/17/23 05:39 Oxygen Delivery Me thod Room Air 06/17/23 04:57 MDM - Abdominal Pain Medical Decision Making Patient has lab work done that was unremarkable, patient is lipase was mildly elevated at 82. Patient was given Toradol and Reglan IV which he said immediately helped the pain and he was ready to be discharged even before we had all the lab work back. Patient will be discharged and is to follow-up with his surgeon Dr. Garcia as well as his family practice doctor for further evaluation and treatment. Differential Diagnosis Likely abdominal pain; Unlikely acute appendicitis, calculus of kidney, constipation, diverticulitis, endometriosis, gastroenteritis, pancreatitis or small bowel obstruction Medical Records I reviewed the patient's medical records. Lab Data I reviewed the patient's lab results. 06/17/23 05:15 06/17/23 05:15 Labs/Radiology: Laboratory Results WBC 10.08 10^3/uL (3.29-11.43) 06/17/23 05:15 RBC 4.66 10^6/uL (3.85-5.65) 06/17/23 05:15 Hgb 14.30 g/dL (11.27-16.99) 06/17/23 05:15 Hct 42.8 % (37-53) 06/17/23 05:15 MCV 91.8 fl (82-101) 06/17/23 05:15 MCH 30.7 pg (27-33) 06/17/23 05:15 MCHC 33.4 g/dL (30-55) 06/17/23 05:15 RDW 12.5 % (12.1-15.1) 06/17/23 05:15 Plt Count 302 10^3/cmm (157-399) 06/17/23 05:15 MPV 8.9 fL (7.4-10.4) 06/17/23 05:15 Neut % (Auto) 69.3 % 06/17/23 05:15 Lymph % (Auto) 20.7 % 06/17/23 05:15 [place] % (Auto) 7.1 % 06/17/23 05:15 Eos % (Auto) 2.3 % 06/17/23 05:15 Baso % (Auto) 0.5 % 06/17/23 05:15 Neut # (Auto) 6.98 10^3/uL (1.8-7.7) 06/17/23 05:15 Lymph # (Auto) 2.1 10^3/uL (0.8-4.8) 06/17/23 05:15 [place] # (Auto) 0.7 10^3/uL (0.2-0.9) 06/17/23 05:15 Eos # (Auto) 0.2 10^3/uL (0.0-0.8) 06/17/23 05:15 Baso # (Auto) 0.1 10^3/uL (0.0-0.1) 06/17/23 05:15 Nucleated RBC % (auto) 0 % 06/17/23 05:15 Nucleated RBCs # 0.0 /100WBC 06/17/23 05:15 Sodium 138 mmol/L (136-145) 06/17/23 05:15 Potassium 4.1 mmol/L (3.5-5.1) 06/17/23 05:15 Chloride 104 mmol/L (98-107) 06/17/23 05:15 Carbon Dioxide 23 mmol/L (22-29) 06/17/23 05:15 Anion Gap 15.1 (5-19) 06/17/23 05:15 BUN 8 mg/dL (6-20) 06/17/23 05:15 Creatinine 0.7 mg/dL (0.7-1.2) 06/17/23 05:15 GFR Calculation 124.9 mL/min (90-130) 06/17/23 05:15 Glucose 97 mg/dL (65-115) 06/17/23 05:15 Calculated Osmolality 284 mOsm/kg (285-295) L 06/17/23 05:15 Calcium 9.6 mg/dL (8.5-10.5) 06/17/23 05:15 Total Bilirubin 0.5 mg/dL (0.15-1.2) 06/17/23 05:15 AST 10 U/L (0-40) 06/17/23 05:15 ALT 15 U/L (0-41) 06/17/23 05:15 Alkaline Phosphatase 65 U/L (40-130) 06/17/23 05:15 Troponin T Baseline < 6 ng/L (0-15) 06/17/23 05:15 Total Protein 7.3 g/dL (6.6-8.7) 06/17/23 05:15 Albumin 4.5 g/dL (3.5-5.2) 06/17/23 05:15 Globulin 2.8 g/dL (1.3-4.6) 06/17/23 05:15 Lipase 82 U/L (13-60) H 06/17/23 05:15 All radiology interpretation(s) finalized by discharge EKG Data EKG 1: I personally reviewed and interpreted this EKG as follows: EKG interpretation date: 06/17/23 EKG interpretation time: 04:57 Interpretation: Ventricular rate 84 bpm, OR interval 160, QRS duration 97, QTc of 404, sinus rhythm with sinus arrhythmia Discharge Plan Discharge Patient Disposition: Home Clinical Impression: Biliary colic Cholelithiasis Qualifiers: Cholelithiasis location: gallbladder Cholecystitis presence: without cholecystitis Biliary obstruction: without biliary obstruction Qualified Code(s): K80.20 - Calculus of gallbladder without cholecystitis without obstruction Condition: Stable Prescriptions: No Action tadalafil 20 mg tablet 20 mg PO DAILY PRN (Reason: sexual activity) Qty: 20 12RF Rx Instructions: administer approximately 30min before sexual activity; NO NITROGLYCERIN! diclofenac sodium [Voltaren Arthritis Pain] 1 % gel 2 g topical QID Qty: 100 3RF Rx Instructions: apply to single elbow, wrist or hand; for hand includes palm/fingers/back of hand Protonix 40 mg tablet,delayed release (DR/EC) 40 mg PO BID 42 Days Qty: 84 1RF cephalexin 250 mg capsule 250 mg PO TID Qty: 42 12RF hydrocodone-acetaminophen 10-325 mg tablet 1 tab PO Q8H PRN (Reason: pain) 30 Days Qty: 90 0RF lactulose 10 gram/15 mL solution 30 ml PO BID Rx Instructions: TAKE 30 ML BY MOUTH TWICE DAILY ondansetron 8 mg tablet,disintegrating 8 mg PO Q8H PRN (Reason: nausea and vomiting) 7 Days Qty: 20 0RF Discharge Orders: Discharge ED (Routine); Ordered 06/17/23 Ordered By: Michel Briggs Referrals: Igor Reyna MD [Primary Care Provider] - 1 week Patient Instructions: Biliary Colic (ED), Abdominal Pain (ED) Coding Level of Care Code ED Fruit Receiver for David Hassan
[2023-06-17 05:19] LABS: Basophils # 0.1 10^3/uL (0.0-0.1); Basophils % 0.5 %; Eosinophils # 0.2 10^3/uL (0.0-0.8); Eosinophils % 2.3 %; Hematocrit 42.8 % (37-53); Lymphocytes # 2.1 10^3/uL (0.8-4.8); Lymphocytes % 20.7 %; Mean Corpuscular HGB Conc 33.4 g/dL (30-55); Mean Corpuscular Hemoglobin 30.7 pg (27-33); Mean Corpuscular Volume 91.8 fl (82-101); Mean Platelet Volume 8.9 fL (7.4-10.4); Monocytes # 0.7 10^3/uL (0.2-0.9); Monocytes % 7.1 %; Neutrophils # 6.98 10^3/uL (1.8-7.7); Neutrophils % 69.3 %; Nucleated Red Blood Cells % 0 %; Platelet Count 302 10^3/cmm (157-399); Red Blood Count 4.66 10^6/uL (3.85-5.65); Red Cell Distribution Width 12.5 % (12.1-15.1); White Blood Count 10.08 10^3/uL (3.29-11.43)
[2023-06-17] MEDS: metoclopramide 5 mg/mL SDV 2 mL 10 MG IVP (05:22)
[2023-06-17] MEDS: sodium chloride 0.9% 1,000 ML 999 ML IV (05:22)
[2023-06-17] MEDS: ketorolac 30 mg/mL INJ IVP (05:23)
[2023-06-17 05:24] VITALS: BP 125/82; PULSE 84; RESP 18; O2SAT 100
[2023-06-17 05:39] VITALS: BP 133/85; PULSE 92; RESP 19; O2SAT 100
[2023-06-17 05:41] LABS: Troponin(5th) Baseline < 6 ng/L (0-15)
[2023-06-17 05:44] LABS: Alanine Aminotransferase 15 U/L (0-41); Albumin Level 4.5 g/dL (3.5-5.2); Alkaline Phosphatase 65 U/L (40-130); Anion Gap 15.1 (5-19); Aspartate Amino Transferase 10 U/L (0-40); Blood Urea Nitrogen 8 mg/dL (6-20); Calcium 9.6 mg/dL (8.5-10.5); Carbon Dioxide 23 mmol/L (22-29); Chloride 104 mmol/L (98-107); Creatinine Clr Calc Pharmacy 143.6421; Globulin 2.8 g/dL (1.3-4.6); Glomerular Filtration Rate 124.9 mL/min (90-130); Glucose 97 mg/dL (65-115); Lipase 82 U/L (13-60); Osmolality Calculated 284 mOsm/kg (285-295); Potassium 4.1 mmol/L (3.5-5.1); Sodium 138 mmol/L (136-145); Total Bilirubin 0.5 mg/dL (0.15-1.2); Total Protein 7.3 g/dL (6.6-8.7)
== END 2023-06-17 05:53 | disposition home or self-care (01) ==
PROVIDERS: Emergency Provider Emergency Medicine; PCP Family Medicine
DX: K80.20 Calculus of gallbladder without cholecystitis without obstruction (principal); F17.210 Nicotine dependence, cigarettes, uncomplicated
CPT/HCPCS: 80053; 83690; 84484; 85025; 93005; 96374; 96375; 99284; J1885; J2765; J7030

== ENCOUNTER → 2023-06-20 07:55 | Outpatient (BNVA) | payer MEDICAID, SELFPAY | PROVIDERS: PCP Family Medicine; Visit Provider Surgery | DX: K21.9 Gastro-esophageal reflux disease without esophagitis (principal); R10.13 Epigastric pain; K80.20 Calculus of gallbladder without cholecystitis without obstruction | CPT/HCPCS: 99214 ==

== ENCOUNTER 2023-06-27 11:31 | Day surgery (SDC) | payer MEDICAID, SELFPAY ==
[2023-06-27] VITALS (19 sets, daily range): BP systolic 101–136; BP diastolic 70–86; PULSE 72–94; RESP 13–24; TEMP 36.2–37.1; O2SAT 96–100; BMI 20.9
--- NOTE | 2023-06-27 12:11 | W.PM.OPSUD ---
Surgery/Procedure H&P Update DATE OF PROCEDURE: June 27, 2023 DATE H&P PERFORMED: 06/20/23 H&P UPDATE INFORMATION: I have reviewed H&P completed within last 30 days, I have examined patient prior to procedure and No changes to prior documentation PLANNED PROCEDURE: Operation Date: 06/27/23 13:05 Proposed Procedures p Laparoscopic Cholecystectomy 68440, K80.20(Not Applicable) - Norberto Garcia,
[2023-06-27] MEDS: sodium chloride 0.9% 1,000 ML 30 ML IV (12:17)
--- NOTE | 2023-06-27 12:27 | ANES.PREANE2 ---
Pre-Anesthetic Assessment Height/Weight: Height 1.8 m Weight 68.039 kg Temp Pulse Resp BP Pulse Ox O2 Del Method 97.3 F L 93 18 110/70 99 Room Air 06/27/23 11:45 06/27/23 11:45 06/27/23 11:45 06/27/23 11:45 06/27/23 11:45 06/27/23 11:46 Operation Date: 06/27/23 13:05 Proposed Procedures p Laparoscopic Cholecystectomy 48346, K80.20(Not Applicable) - Norberto Garcia DO Last intake: Intake Last Liquid Date 06/26/23 Last Liquid Time 06:30 Last Solid Date 06/26/23 Last Solid Time 22:00 Social Alcohol and Tobacco Exam alert, oriented x 3, clear to auscultation bilaterally and regular rate & rhythm Airway Submandibular: within normal limits Cervical ROM: within normal limits Mallampati: Class II Comments: Comments: Profound dental disease throughout Neurogenic bladded s/p spinal cord injury GI Gastroesophageal Reflux Disease Musc/skel Lower Back Pain, Osteoarthritis/DJD and Weakness Anesthetic Plan ASA status: 3 Anesthesia: General Medications/Allergies Home Medications Medication Instructions Recorded Confirmed Last Taken Type tadalafil 20 mg tablet 20 mg PO DAILY PRN sexual activity 08/08/22 06/26/23 Unknown Rx #20 tabs cephalexin 250 mg capsule 250 mg PO TID #42 caps 10/15/22 06/26/23 06/09/23 Rx lactulose 10 gram/15 mL oral 30 ml PO BID 06/10/23 06/26/23 06/10/23 History solution hydrocodone 10 mg-acetaminophen 1 tab PO Q8H PRN pain 30 days #90 06/13/23 06/27/23 06/27/23 Rx 325 mg tablet tabs pantoprazole 40 mg tablet,delayed 40 mg PO BID 6 weeks #84 tabs 06/19/23 06/27/23 06/27/23 Rx release (Protonix) Allergies Allergy/AdvReac Type Severity Reaction Status Date / Time linaclotide [From Linzess] Allergy vomiting Verified 06/20/23 07:58 lubiprostone [From Amitiza] Allergy vomiting Verified 06/20/23 07:58 Sulfa (Sulfonamide Allergy na Verified 06/20/23 07:58 Antibiotics) Nitrofuran Analogues AdvReac na Verified 06/20/23 07:58 Current Medications Generic Name Dose Route Start Last Admin Trade Name Connie PRN Reason Stop Dose Admin Sodium Chloride 1,000 mls @ 30 mls/hr 06/27/23 07:45 06/27/23 12:17 Sodium Chloride 0.9% IV 06/28/23 07:44 30 mls/hr .Q24H MANUEL Administration PFSH Anesthesia Medical History Cholelithiasis Chronic low back pain Erectile dysfunction Neurogenic bladder Recurrent UTI Acute back pain Acute radicular low back pain Unspecified fracture of unspecified thoracic vertebra, sequela Rotator cuff tear arthropathy Hx of spinal cord injury Encounter for long-term opiate analgesic use Back pain with history of spinal surgery Chronic radicular low back pain Opioid contract exists Surgical History History of back surgery Family History Denies family history of Anesthesia complication Social History Smoking and tobacco/nicotine status: current some day tobacco/nicotine user cigarettes Second hand smoke exposure: No Alcohol intake: never Substance/Drug Use: never Current occupational status: disabled Data Anesthesia Cardiac Studies: No Data to Display
[2023-06-27] MEDS: ceFAZolin 2,000 MG in sodium chloride 0.9% (plus) 50 ML 100 MG IV (12:57)
[2023-06-27] MEDS: lidocaine-epi 2% PF 1:200,000 20 mL SDV XX (13:24)
--- NOTE | 2023-06-27 14:08 | P.OP_ITS ---
Operative Report Date of procedure: June 27, 2023 Surgeon: Norberto Garcia DO Brief History: Is a very pleasant 38-year-old gentleman who presented to my office with abdominal pain. He is diagnosed with biliary dyskinesia. Laparoscopic cholecystectomy is indicated. The risk and benefits were explained and documented. Procedure: Preoperative diagnosis: Biliary dyskinesia Postoperative diagnosis: Biliary dyskinesia, symptomatic cholelithiasis Procedure performed: Laparoscopic cholecystectomy Surgeon: Dr. Norberto Garcia DO Estimated blood loss: 5 mL Specimens: Gallbladder to pathology Complications: None apparent Description of procedure: Patient was wheeled into the operative room and placed on the OR table in a supine position. Abdomen was inspected prepped and draped in usual sterile fashion. Time-out was performed and all present were in agreement. A 15 blade scalp was used to make a stab incision in the left upper quadrant and intra- abdominal insufflation was achieved using a Veress needle. After localizing the tissue incisions were made and a 5 millimeter trocar was placed into the umbilicus as well as 2 in the right upper quadrant. A 12 millimeter trocar was placed in the epigastrium. Gallbladder was grasped and elevated. The gallbladder was very fragile and tore upon applying traction. Numerous stones fell out of the gallbladder. The triangle of [place]ot was carefully dissected using blunt dissection and electrocautery until the triangle of [place] clearly identified. The cystic duct was clipped proximally and double clipped distally. The duct was then ligated proximally. The cystic artery was doubly clipped and ligated. The gallbladder was then removed from the liver bed using electrocautery. The gallbladder and gallstones, after collecting individually, were removed from the abdomen using an Endo-Catch bag through the epigastric incision. The epigastric incision had to be extended to accommodate the numerous stones and gallbladder. The liver bed was inspected and no bleeding was seen. The abdomen was irrigated and suctioned. All ports removed. Skin was washed and dried. Incisions were closed with 4-0 Monocryl in a subcuticular interrupted fashion. Skin glue was applied. Patient tolerated the procedure well.
[2023-06-27] MEDS: fentaNYL 50 mcg/mL INJ 2mL IVP ×2 (14:40→14:49)
--- NOTE | 2023-06-27 14:57 | ANE.PACU2 ---
Inpatient post-anesthesia follow up: Vital signs: Temperature 97.2 F Pulse Rate 74 Respiratory Rate 19 Blood Pressure 129/82 Pulse Oximetry 98 Oxygen Delivery Me thod Room Air Oxygen Flow Rate 6 Fraction of Inspir ed Oxygen Hydration adequate: Yes Nausea and vomiting: No Pain level: 5 Mental status: Baseline
[2023-06-27] MEDS: HYDROcodone-acetaminophen 10-325 mg Tablet 1 TAB PO (15:23)
[2023-06-27] MEDS: HYDROmorphone 1 mg/mL INJ 1 mL 0.5 MG IVP (16:50)
--- NOTE | 2023-06-27 17:12 | PC.NURSE ---
Pt stated he thought he would be pain-free after surgery, however, Dilaudid 0.5mg did relieve his pain from 5/10 to 3/10 prior to discharge, dermabond intact to all incisions, no bleeding present.
== END 2023-06-27 17:15 | disposition home or self-care (01) ==
PROVIDERS: PCP Family Medicine; Visit Provider Surgery
PROC: 0FT44ZZ Resection of Gallbladder, Percutaneous Endoscopic Approach (ICD-10-PCS; CPT 47562; principal; 2023-06-27 13:05)
DX: K80.10 Calculus of gallbladder with chronic cholecystitis without obstruction (principal); K21.9 Gastro-esophageal reflux disease without esophagitis; F17.210 Nicotine dependence, cigarettes, uncomplicated
CPT/HCPCS: 47562; 88304; J0690; J1100; J1170; J1885; J2250; J2405; J2704; J2710; J3010; J3490; J7030

== ENCOUNTER → 2023-07-12 08:36 | Outpatient (BNVA) | payer MEDICAID, SELFPAY | PROVIDERS: PCP Family Medicine; Visit Provider Surgery | DX: K59.04 Chronic idiopathic constipation (principal); Z79.891 Long term (current) use of opiate analgesic; Z90.49 Acquired absence of other specified parts of digestive tract | CPT/HCPCS: 99214 ==

== ENCOUNTER 2023-07-17 22:17 | Emergency (ER) | payer MEDICAID, SELFPAY ==
[2023-07-17 22:21] VITALS: BP 107/65; PULSE 136; RESP 16; TEMP 36.7; O2SAT 97
--- NOTE | 2023-07-17 22:32 | ECG_ITS ---
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 Measurements Intervals [place] Rate: 111 P: 48 MI: 156 QRS: 58 QRSD: 96 T: 46 QT: 303 QTc: 412 Interpretive Statements SINUS TACHYCARDIA POSSIBLE LEFT ATRIAL ENLARGEMENT [-0.1mV P-WAVE IN V1/V2] ABNORMAL RHYTHM ECG Compared to ECG 06/17/2023 04:57:42 Sinus rhythm no longer present Sinus arrhythmia no longer present Electronically Signed On 07-18-2023 0:11:21 CDT by Keon Marley M.D. [email or web address]
--- NOTE | 2023-07-17 22:40 | ED_ITS ---
HPI - Fever 2 General: Chief Complaint: Fever Stated Complaint: fever convulsions gall bld surgury 3 wk ago Time Seen by Provider: 07/17/23 22:32 History of Present Illness: Patient presents to the ER with complaints of chills and uncontrolled shaking and abdominal pain. This all started earlier today. Patient is feeling better at the moment. Patient says gallbladder moved about 3 weeks ago and was doing better until today. Patient also said a couple days ago he sat up straight in bed using his abdominal muscles and felt something tear in his upper abdomen. That pain went away. Patient is not been around any sick contacts. Patient denies nausea or vomiting. Patient does admit to his heart racing now when he normally does not. Review of Systems 2 General: Reports: 10 or more systems reviewed and unremarkable except in HPI and below PFSH ED 2 PFSH: Medical History Cholelithiasis Chronic low back pain Erectile dysfunction Neurogenic bladder Recurrent UTI Acute back pain Acute radicular low back pain Unspecified fracture of unspecified thoracic vertebra, sequela Rotator cuff tear arthropathy Hx of spinal cord injury Encounter for long-term opiate analgesic use Back pain with history of spinal surgery Chronic radicular low back pain Opioid contract exists Surgical History Hx laparoscopic cholecystectomy 06/27/23 Dr Garcia History of back surgery Family History Denies family history of Anesthesia complication Social History Smoking and tobacco/nicotine status: current every day tobacco/nicotine user cigarettes Second hand smoke exposure: No Alcohol intake: never Substance/Drug Use: never Current occupational status: disabled Physical Exam 2 Const: COMMON NORMALS: no acute distress, average body habitus, patient oriented x3, no limitations, healthy appearing, alert and well nourished HENMT: COMMON NORMALS: normocephalic, atraumatic, hearing grossly normal bilaterally, external ears normal, Normal external nose present, moist oral mucous membranes and oropharynx normal HEAD & SCALP: normocephalic and atraumatic NOSE: Normal external nose present EXTERNAL EAR: Yes external ears normal Neck/C-Spine: COMMON NORMALS: no JVD Chest: COMMONS NORMALS: normal inspection of the chest and normal palpation of entire chest wall Resp: COMMON NORMALS: normal respiratory effort, No retractions, No use of accessory muscles and clear to auscultation bilaterally AUSCULTATION: clear to auscultation bilaterally Cardio: COMMON NORMALS: no JVD, regular rate, regular rhythm, S1 normal heart sound present, S2 normal heart sound present, No gallops present (Cardio), No clicks present (Cardio), No murmurs present (Cardio) and No rub (Cardio) R ATE: regular rate RHYTHM: regular rhythm HEART SOUNDS: S1 normal heart sound present and S2 normal heart sound present GI: COMMON NORMALS: Normal to inspection, nondistended, normoactive bowel sounds present, Soft to palpation, non-tender, No hepatosplenomegaly present and no masses PALPATION: Yes Soft to palpation and Yes No hepatosplenomegaly present Neuro: COMMON NORMALS: patient oriented x3 SENSORIUM/ORIENTATION: Yes alert Course 2 Vital Signs: Vital signs: Vital Signs Temperature 98.0 F 07/17/23 22:21 Pulse Rate 136 H 07/17/23 22:21 Respiratory Rate 16 07/17/23 22:21 Blood Pressure 107/65 07/17/23 22:21 Pulse Oximetry 97 07/17/23 22:21 Oxygen Delivery Me thod Room Air 07/17/23 22:21 MDM - Fever Medical Decision Making Patient was examined and had lab work that included CBC CMP magnesium lipase urinalysis all of which was unremarkable except a urine which did show positive for infection. Patient be given Cipro here and a liter normal saline and discharged home with Cipro. Differential Diagnosis Unlikely abdominal pain, acute appendicitis, calculus of kidney, constipation, diverticulitis, endometriosis, gastroenteritis, pancreatitis or small bowel obstruction Medical Records I reviewed the patient's medical records. Lab Data I reviewed the patient's lab results. 07/17/23 22:38 07/17/23 22:38 Laboratory Results WBC 5.62 10^3/uL (3.29-11.43) 07/17/23 22:38 RBC 4.50 10^6/uL (3.85-5.65) 07/17/23 22:38 Hgb 13.80 g/dL (11.27-16.99) 07/17/23 22:38 Hct 39.8 % (37-53) 07/17/23 22: MCV 88.4 fl (82-101) 07/17/23 22: MCH 30.7 pg (27-33) 07/17/23 22: MCHC 34.7 g/dL (30-55) 07/17/23 22: RDW 12.2 % (12.1-15.1) 07/17/23 22: Plt Count 222 10^3/cmm (157-399) 07/17/23 22: MPV 8.9 fL (7.4-10.4) 07/17/23 22: Neut % (Auto) 78.5 % 07/17/23 22: Lymph % (Auto) 18.3 % 07/17/23 22: [place] % (Auto) 1.2 % 07/17/23 22: Eos % (Auto) 1.4 % 07/17/23 22: Baso % (Auto) 0.4 % 07/17/23 22: Neut # (Auto) 4.41 10^3/uL (1.8-7.7) 07/17/23 22: Lymph # (Auto) 1.0 10^3/uL (0.8-4.8) 07/17/23 22: [place] # (Auto) 0.1 10^3/uL (0.2-0.9) L 07/17/23 22: Eos # (Auto) 0.1 10^3/uL (0.0-0.8) 07/17/23 22: Baso # (Auto) 0.0 10^3/uL (0.0-0.1) 07/17/23 22: Nucleated RBC % (auto) 0 % 07/17/23 22: Nucleated RBCs # 0.0 /100WBC 07/17/23 22: Sodium 134 mmol/L (136-145) L 07/17/23 22: Potassium 3.6 mmol/L (3.5-5.1) 07/17/23 22: Chloride 100 mmol/L (98-107) 07/17/23 22: Anion Gap 18.6 (5-19) 07/17/23 22: BUN 7 mg/dL (6-20) 07/17/23 22:38 Creatinine 0.7 mg/dL (0.7-1.2) 07/17/23 22:38 GFR Calculation 124.9 mL/min (90-130) 07/17/23 22:38 Glucose 115 mg/dL (65-115) 07/17/23 22:38 Calculated Osmolality 277 mOsm/kg (285-295) L 07/17/23 22:38 Calcium 9.2 mg/dL (8.5-10.5) 07/17/23 22:38 Magnesium 1.6 mg/dL (1.7-2.3) L 07/17/23 22:38 Total Bilirubin 0.7 mg/dL (0.15-1.2) 07/17/23 22:38 AST 22 U/L (0-40) 07/17/23 22:38 ALT 23 U/L (0-41) 07/17/23 22:38 Alkaline Phosphatase 72 U/L (40-130) 07/17/23 22:38 Total Protein 7.4 g/dL (6.6-8.7) 07/17/23 22:38 Albumin 4.2 g/dL (3.5-5.2) 07/17/23 22:38 Globulin 3.2 g/dL (1.3-4.6) 07/17/23 22:38 Lipase 35 U/L (13-60) 07/17/23 22:38 Urine Color Yellow (Yellow) 07/17/23 22:51 Urine Appearance Clear (CLEAR) 07/17/23 22:51 Urine pH 7 (5-7) 07/17/23 22:51 Ur Specific [place] 1.010 (1.005-1.030) 07/17/23 22:51 Urine Protein Neg (Negative) 07/17/23 22:51 Urine Glucose (UA) Norm (Normal) 07/17/23 22:51 Urine Ketones Negative (Negative) 07/17/23 22:51 Urine Blood Neg (Negative) 07/17/23 22:51 Urine Nitrate Negative (Negative) 07/17/23 22:51 Urine Bilirubin Neg (Negative) 07/17/23 22:51 Urine Urobilinogen Neg mg/dL (Negative) 07/17/23 22:51 Ur Leukocyte Esterase 1+ (Negative) H 07/17/23 22:51 Urine RBC 5-10 /hpf (0-2) H 07/17/23 22:51 Urine WBC 25-40 /hpf (0-5) H 07/17/23 22:51 Ur Squamous Epith Cells 0-4 /hpf (0-5) H 07/17/23 22:51 Amorphous Sediment Not Reportable 07/17/23 22:51 Urine Bacteria 2+ /hpf (NONE) H 07/17/23 22:51 Urine Mucus Trace /hpf 07/17/23 22:51 All radiology interpretation(s) finalized by discharge Discharge Plan Discharge Patient Disposition: Home Clinical Impression: Urinary tract infection in male Condition: Stable Prescriptions: New ciprofloxacin HCl 500 mg tablet 500 mg PO Q12H Qty: 20 0RF No Action tadalafil 20 mg tablet 20 mg PO DAILY PRN (Reason: sexual activity) Qty: 20 12RF Rx Instructions: administer approximately 30min before sexual activity; NO NITROGLYCERIN! cephalexin 250 mg capsule 250 mg PO TID Qty: 42 12RF Hold Instructions: Resume on 07/07/23. Protonix 40 mg tablet,delayed release (DR/EC) 40 mg PO BID 42 Days Qty: 84 1RF hydrocodone-acetaminophen 10-325 mg tablet 1 tab PO Q8H PRN (Reason: pain) 30 Days Qty: 90 0RF Hold Instructions: Resume on 07/02/23. lactulose 10 gram/15 mL solution 30 ml PO BID Rx Instructions: TAKE 30 ML BY MOUTH TWICE DAILY Colace 100 mg capsule 100 mg PO BID Qty: 14 0RF amoxicillin-pot clavulanate 875-125 mg tablet 1 tab PO BID Qty: 20 0RF Discharge Orders: Discharge ED (Routine); Ordered 07/17/23 Ordered By: Michel Briggs Referrals: Igor Reyna MD [Primary Care Provider] - 1 week Patient Instructions: Urinary Tract Infection in Men (ED) Activity Restrictions/Additional Instructions: Your evaluation in ER included physical exam, blood work and urine was unremarkable except for your urine did show signs of urinary tract infection. As well you have been given Cipro and antibiotic in the ER and a prescription sent to your pharmacy. Please take this as directed. Please follow-up with your friend practitioner in the next 7 days for further evaluation. Thank you for choosing [facility] for your healthcare needs today. Please realize that you were seen in the emergency department and that we are providing you with an emergency medical screening exam and this may not be a complete and all exclusive of all testing and/or medical workup we may need to determine your element or severity of your illness. It is very important that you follow-up as instructed with your primary care provider or specialist for the additional evaluation and to discuss your medical treatment plan. You may return to the emergency department should you have concerns or if your condition changes or worsens in any way. Coding Level of Care Code ED Data Architect for David Hassan
[2023-07-17 22:45] LABS: Basophils % 0.4 %; Eosinophils # 0.1 10^3/uL (0.0-0.8); Eosinophils % 1.4 %; Hematocrit 39.8 % (37-53); Lymphocytes % 18.3 %; Mean Corpuscular HGB Conc 34.7 g/dL (30-55); Mean Corpuscular Hemoglobin 30.7 pg (27-33); Mean Corpuscular Volume 88.4 fl (82-101); Mean Platelet Volume 8.9 fL (7.4-10.4); Monocytes # 0.1 10^3/uL (0.2-0.9); Monocytes % 1.2 %; Neutrophils # 4.41 10^3/uL (1.8-7.7); Neutrophils % 78.5 %; Nucleated Red Blood Cells % 0 %; Platelet Count 222 10^3/cmm (157-399); Red Cell Distribution Width 12.2 % (12.1-15.1); White Blood Count 5.62 10^3/uL (3.29-11.43)
[2023-07-17] MEDS: sodium chloride 0.9% 1,000 ML 999 ML IV (23:05)
[2023-07-17 23:07] LABS: Alanine Aminotransferase 23 U/L (0-41); Albumin Level 4.2 g/dL (3.5-5.2); Alkaline Phosphatase 72 U/L (40-130); Aspartate Amino Transferase 22 U/L (0-40); Blood Urea Nitrogen 7 mg/dL (6-20); Calcium 9.2 mg/dL (8.5-10.5); Chloride 100 mmol/L (98-107); Creatinine Clr Calc Pharmacy 142.2016; Globulin 3.2 g/dL (1.3-4.6); Glomerular Filtration Rate 124.9 mL/min (90-130); Glucose 115 mg/dL (65-115); Lipase 35 U/L (13-60); Magnesium 1.6 mg/dL (1.7-2.3); Osmolality Calculated 277 mOsm/kg (285-295); Potassium 3.6 mmol/L (3.5-5.1); Sodium 134 mmol/L (136-145); Total Bilirubin 0.7 mg/dL (0.15-1.2); Total Protein 7.4 g/dL (6.6-8.7)
[2023-07-17 23:25] LABS: Urine Appearance Clear (CLEAR); Urine Color Yellow (Yellow); pH Urine 7 (5-7)
[2023-07-17 23:26] LABS: Add Urine Microscopic? YES; Bilirubin Urine Neg (Negative); Blood Urine Neg (Negative); Glucose Urine UA Norm (Normal); Ketones Urine Negative (Negative); Leukocyte Esterase Urine 1+ (Negative); Nitrate Urine Negative (Negative); Protein Urine Neg (Negative); Urobilinogen Urine Neg (Negative)
[2023-07-17 23:27] LABS: Add Urine Culture? Yes; Bacteria Urine 2+ /hpf; Mucus Urine TRACE /hpf; Squamous Epithelial Cell Urine 0-4 /hpf (0-5); WBC Urine 25-40 /hpf (0-5)
[2023-07-17] MEDS: ciprofloxacin 500 mg Tablet PO (23:43)
[2023-07-17 23:44] LABS: Carbon Dioxide 20 mmol/L (22-29)
[2023-07-17 23:45] LABS: Anion Gap 17.6 (5-19)
[2023-07-17 23:48] VITALS: BP 107/65; PULSE 87; RESP 16; TEMP 36.7; O2SAT 97
== END 2023-07-17 23:50 | disposition home or self-care (01) ==
PROVIDERS: Emergency Provider Emergency Medicine; PCP Family Medicine
DX: N39.0 Urinary tract infection, site not specified (principal); Z87.440 Personal history of urinary (tract) infections; F17.210 Nicotine dependence, cigarettes, uncomplicated
CPT/HCPCS: 80053; 81001; 83690; 83735; 85025; 87077; 87086; 87186; 93005; 96365; 99284; J7030

== ENCOUNTER → 2023-07-29 14:27 | Outpatient (BNVA) | payer MEDICAID, SELFPAY | PROVIDERS: PCP Family Medicine; Visit Provider Family Medicine | DX: R33.9 Retention of urine, unspecified (principal); N39.0 Urinary tract infection, site not specified; Z90.49 Acquired absence of other specified parts of digestive tract | CPT/HCPCS: 81000 ==

== ENCOUNTER 2023-08-10 00:34 | Emergency (ER) | payer MEDICAID, SELFPAY ==
[2023-08-10 00:39] VITALS: BP 123/79; PULSE 90; RESP 16; TEMP 36.7; O2SAT 98; BMI 20.9
[2023-08-10 00:44] VITALS: BP 128/73; PULSE 101; RESP 16; O2SAT 98
[2023-08-10] MEDS: ondansetron 2 mg/ML SDV 2 mL 4 MG IVP ×2 (01:38→01:48)
[2023-08-10] MEDS: sodium chloride 0.9% 1,000 ML 999 ML IV (01:39)
[2023-08-10 01:40] LABS: Basophils % 0.2 %; Eosinophils # 0.2 10^3/uL (0.0-0.8); Eosinophils % 2.9 %; Hematocrit 41.4 % (37-53); Lymphocytes % 24.9 %; Mean Corpuscular HGB Conc 33.6 g/dL (30-55); Mean Corpuscular Hemoglobin 30.3 pg (27-33); Mean Corpuscular Volume 90.4 fl (82-101); Mean Platelet Volume 9.5 fL (7.4-10.4); Monocytes # 0.7 10^3/uL (0.2-0.9); Monocytes % 8.6 %; Neutrophils # 5.07 10^3/uL (1.8-7.7); Neutrophils % 63.2 %; Nucleated Red Blood Cells % 0 %; Platelet Count 282 10^3/cmm (157-399); Red Blood Count 4.58 10^6/uL (3.85-5.65); Red Cell Distribution Width 12.4 % (12.1-15.1); White Blood Count 8.03 10^3/uL (3.29-11.43)
[2023-08-10 01:45] VITALS: RESP 18; O2SAT 98
[2023-08-10] MEDS: morphine 4 mg/mL SDV 1 mL IVP (01:45)
--- NOTE | 2023-08-10 01:45 | W.ED.NAVMDI ---
HPI - Nausea/Vomiting/Diarrhea General: Chief complaint: Nausea/Vomiting/Diarrhea Stated complaint: fever chills Time Seen by Provider: 08/10/23 00:40 History of Present Illness: 38-year-old male on chronic pain medication notes that he ran out a medication 48 hours or so ago. He states that yesterday morning, he began to have stomach cramps, diarrhea, restless legs, and anxiety. He has had a couple episodes of vomiting. He is felt febrile. He has had chills. Associated nausea: Yes Associated symtoms: Reports nausea; Denies chest pain Review of Systems Const: Reports: fever(s) (subjective) and chills ENMT: Denies: throat pain Card: Denies: chest pain Resp: Denies: dyspnea GI: Reports: abdominal pain, nausea, vomiting, diarrhea and GI cramping : Denies: difficulty urinating Musc: Reports: back pain PFSH ED PFSH: Medical History Cholelithiasis Chronic low back pain Erectile dysfunction Neurogenic bladder Recurrent UTI Acute back pain Acute radicular low back pain Unspecified fracture of unspecified thoracic vertebra, sequela Rotator cuff tear arthropathy Hx of spinal cord injury Encounter for long-term opiate analgesic use Back pain with history of spinal surgery Chronic radicular low back pain Opioid contract exists Surgical History Hx laparoscopic cholecystectomy 06/27/23 Dr Garcia History of back surgery Family History Denies family history of Anesthesia complication Social History Smoking and tobacco/nicotine status: current every day tobacco/nicotine user cigarettes Second hand smoke exposure: No Alcohol intake: never Substance/Drug Use: never Current occupational status: disabled Physical Exam Const: COMMON NORMALS: no acute distress GENERAL APPEARANCE: cooperative and ill appearing (Mildly); not frail appearing HENMT: COMMON NORMALS: normocephalic, atraumatic and Normal external nose present HEAD & SCALP: normocephalic and atraumatic FACE & SINUS: normal facial exam and face symmetric NOSE: Normal external nose present Eye: COMMON NORMALS: Equal, round and reactive pupils present and EOMs intact bilaterally PUPIL: Yes Equal, round and reactive pupils present Neck/C-Spine: GENERAL: Yes trachea midline Chest: CHEST: Yes Symmetrical chest wall rise Resp: COMMON NORMALS: normal respiratory effort, No retractions, No use of accessory muscles and clear to auscultation bilaterally AUSCULTATION: clear to auscultation bilaterally Cardio: COMMON NORMALS: regular rate and regular rhythm RATE: regular rate RHYTHM: regular rhythm GI: COMMON NORMALS: Normal to inspection, nondistended, normoactive bowel sounds present Extremity: COMMON NORMALS: no pedal edema Neuro: ANAIS COMA SCALE: document GCS findings [place] coma scale eye opening: Spontaneous Anais coma scale verbal response: Orientated Anais coma scale motor response: Obey commands Anais coma scale total score: 15 SENSORY EXAM: Yes extremities (intact) Psych: COMMON NORMALS: speech normal SPEECH: Yes normal speech Skin: COMMON NORMALS: no rashes or lesions noted GENERAL SKIN EXAM: no rashes or lesions noted Course Vital Signs: Vital signs: Vital Signs Temperature 98.1 F 08/10/23 00:39 Pulse Rate 84 08/10/23 02:55 Respiratory Rate 16 08/10/23 02:55 Blood Pressure 128/73 08/10/23 00:44 Pulse Oximetry 98 08/10/23 02:55 Oxygen Delivery Me thod Room Air 08/10/23 00:44 MDM - Nausea/Vomiting/Diarrhea Medical Decision Making Patient received 90 hydrocodone 3 weeks ago. He says he ran out early because he washed some of his pills in his pocket and the washing machine. He says I thought I would be okay , but came in with symptoms. White blood cell count is 8. CRP is 3. He is improved after small dose of morphine, Ativan, and IV fluid. Will prescribe oxycodone, as he has a chronic prescription for hydrocodone. This may allow pharmacy to fill a very short course until he can contact his doctor. He was told to contact his doctor on Saturday and let them know what happened here. This patient appears to be compliant with his pain medication otherwise, and has not come in multiple times seeking pain medication. Lab Data 08/10/23 01:35 08/10/23 01:35 Laboratory Results WBC 8.03 10^3/uL (3.29-11.43) 08/10/23 01:35 RBC 4.58 10^6/uL (3.85-5.65) 08/10/23 01:35 Hgb 13.90 g/dL (11.27-16.99) 08/10/23 01:35 Hct 41.4 % (37-53) 08/10/23 01:35 MCV 90.4 fl (82-101) 08/10/23 01:35 MCH 30.3 pg (27-33) 08/10/23 01:35 MCHC 33.6 g/dL (30-55) 08/10/23 01:35 RDW 12.4 % (12.1-15.1) 08/10/23 01:35 Plt Count 282 10^3/cmm (157-399) 08/10/23 01:35 MPV 9.5 fL (7.4-10.4) 08/10/23 01:35 Neut % (Auto) 63.2 % 08/10/23 01:35 Lymph % (Auto) 24.9 % 08/10/23 01:35 [place] % (Auto) 8.6 % 08/10/23 01:35 Eos % (Auto) 2.9 % 08/10/23 01:35 Baso % (Auto) 0.2 % 08/10/23 01:35 Neut # (Auto) 5.07 10^3/uL (1.8-7.7) 08/10/23 01:35 Lymph # (Auto) 2.0 10^3/uL (0.8-4.8) 08/10/23 01:35 [place] # (Auto) 0.7 10^3/uL (0.2-0.9) 08/10/23 01:35 Eos # (Auto) 0.2 10^3/uL (0.0-0.8) 08/10/23 01:35 Baso # (Auto) 0.0 10^3/uL (0.0-0.1) 08/10/23 01:35 Nucleated RBC % (auto) 0 % 08/10/23 01:35 Nucleated RBCs # 0.0 /100WBC 08/10/23 01:35 Sodium 142 mmol/L (136-145) 08/10/23 01:35 Potassium 3.4 mmol/L (3.5-5.1) L 08/10/23 01:35 Chloride 106 mmol/L (98-107) 08/10/23 01:35 Carbon Dioxide 23 mmol/L (22-29) 08/10/23 01:35 Anion Gap 16.4 (5-19) 08/10/23 01:35 BUN 6 mg/dL (6-20) 08/10/23 01:35 Creatinine 0.6 mg/dL (0.7-1.2) L 08/10/23 01:35 GFR Calculation 149.2 mL/min (90-130) H 08/10/23 01:35 Glucose 110 mg/dL (65-115) 08/10/23 01:35 Calculated Osmolality 292 mOsm/kg (285-295) 08/10/23 01:35 Calcium 9.6 mg/dL (8.5-10.5) 08/10/23 01:35 Total Bilirubin 0.5 mg/dL (0.15-1.2) 08/10/23 01:35 AST 11 U/L (0-40) 08/10/23 01:35 ALT 15 U/L (0-41) 08/10/23 01:35 Alkaline Phosphatase 62 U/L (40-130) 08/10/23 01:35 C-Reactive Protein 3.0 mg/L (0.0-4.9) 08/10/23 01:35 Total Protein 7.7 g/dL (6.6-8.7) 08/10/23 01:35 Albumin 4.5 g/dL (3.5-5.2) 08/10/23 01:35 Globulin 3.2 g/dL (1.3-4.6) 08/10/23 01:35 Lipase 68 U/L (13-60) H 08/10/23 01:35 Urine Color Yellow (Yellow) 08/10/23 01:30 Urine Appearance Clear (CLEAR) 08/10/23 01:30 Urine pH 7 (5-7) 08/10/23 01:30 Ur Specific [place] 1.010 (1.005-1.030) 08/10/23 01:30 Urine Protein Neg (Negative) 08/10/23 01:30 Urine Glucose (UA) Norm (Normal) 08/10/23 01:30 Urine Ketones Negative (Negative) 08/10/23 01:30 Urine Blood Neg (Negative) 08/10/23 01:30 Urine Nitrate Negative (Negative) 08/10/23 01:30 Urine Bilirubin Neg (Negative) 08/10/23 01:30 Urine Urobilinogen Neg mg/dL (Negative) 08/10/23 01:30 Ur Leukocyte Esterase Negative (Negative) 08/10/23 01:30 No radiology studies performed this visit Discharge Plan Discharge Patient Disposition: Home Clinical Impression: Opioid withdrawal Condition: Stable Prescriptions: New Percocet 7.5-325 mg tablet 1 tab PO Q6H PRN (Reason: pain) Qty: 8 0RF Discontinued hydrocodone-acetaminophen 10-325 mg tablet 1 tab PO Q8H PRN (Reason: pain) 30 Days Qty: 90 0RF Hold Instructions: Resume on 07/02/23. No Action tadalafil 20 mg tablet 20 mg PO DAILY PRN (Reason: sexual activity) Qty: 20 12RF Rx Instructions: administer approximately 30min before sexual activity; NO NITROGLYCERIN! cephalexin 250 mg capsule 250 mg PO TID Qty: 42 12RF Hold Instructions: Resume on 07/07/23. Protonix 40 mg tablet,delayed release (DR/EC) 40 mg PO BID 42 Days Qty: 84 1RF lactulose 10 gram/15 mL solution 30 ml PO BID Rx Instructions: TAKE 30 ML BY MOUTH TWICE DAILY Colace 100 mg capsule 100 mg PO BID Qty: 14 0RF amoxicillin-pot clavulanate 875-125 mg tablet 1 tab PO BID Qty: 20 0RF ciprofloxacin HCl 500 mg tablet 500 mg PO Q12H Qty: 20 0RF Discharge Orders: Discharge ED (Routine); Ordered 08/10/23 Ordered By: Tim Carrillo Referrals: Igor Reyna MD [Primary Care Provider] - 1-3 days Patient Instructions: Narcotic Withdrawal (ED), Opioid Safety, Pain Management Activity Restrictions/Additional Instructions: Call your doctor Saturday. Let them know you are out of medication. Fill prescription and take appropriately. Return for problems. Coding Level of Care Code ED Device Processing Engineer for David Hassan
[2023-08-10] MEDS: LORazepam 2 mg/mL INJ 10 mL MDV 1 MG IVP (01:46)
[2023-08-10 01:58] VITALS: PULSE 92; RESP 18; O2SAT 99
[2023-08-10 02:03] LABS: Alanine Aminotransferase 15 U/L (0-41); Albumin Level 4.5 g/dL (3.5-5.2); Alkaline Phosphatase 62 U/L (40-130); Anion Gap 16.4 (5-19); Aspartate Amino Transferase 11 U/L (0-40); Blood Urea Nitrogen 6 mg/dL (6-20); Calcium 9.6 mg/dL (8.5-10.5); Carbon Dioxide 23 mmol/L (22-29); Chloride 106 mmol/L (98-107); Creatinine Clr Calc Pharmacy 167.5824; Globulin 3.2 g/dL (1.3-4.6); Glomerular Filtration Rate 149.2 mL/min (90-130); Glucose 110 mg/dL (65-115); Lipase 68 U/L (13-60); Osmolality Calculated 292 mOsm/kg (285-295); Potassium 3.4 mmol/L (3.5-5.1); Sodium 142 mmol/L (136-145); Total Bilirubin 0.5 mg/dL (0.15-1.2); Total Protein 7.7 g/dL (6.6-8.7)
[2023-08-10 02:06] LABS: Add Urine Microscopic? NO; Charge for UA Resulting for Rev
[2023-08-10 02:09] LABS: Bilirubin Urine Neg (Negative); Blood Urine Neg (Negative); Glucose Urine UA Norm (Normal); Ketones Urine Negative (Negative); Leukocyte Esterase Urine Negative (Negative); Nitrate Urine Negative (Negative); Protein Urine Neg (Negative); Urine Appearance Clear (CLEAR); Urine Color Yellow (Yellow); Urobilinogen Urine Neg (Negative); pH Urine 7 (5-7)
[2023-08-10 02:55] VITALS: PULSE 84; RESP 16; O2SAT 98
== END 2023-08-10 02:57 | disposition home or self-care (01) ==
PROVIDERS: Emergency Provider Emergency Medicine; PCP Family Medicine
DX: F11.23 Opioid dependence with withdrawal (principal); F17.210 Nicotine dependence, cigarettes, uncomplicated
CPT/HCPCS: 80053; 81003; 83690; 85025; 86140; 96361; 96374; 96375; 96376; 99285; J2060; J2270; J2405; J7030

== ENCOUNTER 2023-10-26 15:37 | Emergency (ER) | payer MEDICAID, SELFPAY ==
[2023-10-26 16:30] VITALS: BP 125/80; PULSE 93; RESP 18; TEMP 36.4; O2SAT 99
--- NOTE | 2023-10-26 16:46 | ED_ITS ---
Documented by User: BOLA Robles 10/26/23 16:55 HPI - Dental/Oral General: Chief complaint: Dental/Oral Stated complaint: Left jaw pain possible absess Time Seen by Provider: 10/26/23 16:33 Source: patient Mode of arrival: ambulatory Limitations: no limitations History of Present Illness: Patient is a 38-year-old male presenting to the emergency department complaining of left dental pain and swelling onset past few days. History of dental abscess, states this feels the same. Has a dental appointment in 5 days however the pain and swelling were getting too severe. He was taking some oral metronidazole at home, states he took 1 dose prior to coming in. No throat swelling, trouble breathing, fevers, or other symptoms reported at this time. MD Complaint: tooth pain Onset (ago): day(s) Duration: constant Severity: severe Context: history of dental caries and poor dental care Associated symptoms: Denies ear or mastoid pain or fever(s) Treatment prior to arrival: other (old antibiotics) Related Data Home Medications Medication Instructions Recorded Confirmed lactulose 10 gram/15 mL oral 30 ml PO BID 06/10/23 08/14/23 solution Previous Rx's Medication Instructions Recorded tadalafil 20 mg tablet 20 mg PO DAILY PRN sexual activity 08/08/22 #20 tabs cephalexin 250 mg capsule 250 mg PO TID #42 caps 10/15/22 docusate sodium 100 mg capsule 100 mg PO BID #14 caps 06/27/23 (Colace) ciprofloxacin HCl 500 mg tablet 500 mg PO Q12H #20 tabs 07/17/23 famotidine 40 mg tablet 40 mg PO BID #180 tabs 09/10/23 hydrocodone 10 mg-acetaminophen 1 tab PO Q8H PRN pain 30 days #90 10/07/23 325 mg tablet tabs amoxicillin 875 mg-potassium 1 tab PO BID 10 days #20 tabs 10/26/23 clavulanate 125 mg tablet prednisone 20 mg tablet 60 mg (3 x 20 mg) PO ONCE 5 days 10/26/23 #15 tabs Allergies Allergy/AdvReac Type Severity Reaction Status Date / Time linaclotide [From Linzess] Allergy vomiting Verified 08/14/23 08:31 lubiprostone [From Amitiza] Allergy vomiting Verified 08/14/23 08:31 Sulfa (Sulfonamide Allergy na Verified 08/14/23 08:31 Antibiotics) Nitrofuran Analogues AdvReac na Verified 08/14/23 08:31 Review of Systems General: Reports: 10 or more systems reviewed and unremarkable except in HPI and below Const: Denies: fever(s), chills or fatigue Eyes: Denies: change in vision ENMT: Reports: dental pain, sinus pain and other (Facial swelling); Denies: throat pain, ear or mastoid pain or nasal discharge Card: Denies: chest pain, palpitations, swelling of feet/ankles or lightheadedness Resp: Denies: dyspnea, productive cough or wheezing GI: Denies: abdominal pain, nausea, vomiting, diarrhea or constipation : Denies: flank pain, difficulty urinating, dysuria or urinary frequency Musc: Denies: neck pain, back pain or joint pain Skin/Breast: Denies: rash Neuro: Denies: headache(s), numbness in extremities or weakness in extremities PFSH ED PFSH: Medical History Cholelithiasis Chronic low back pain Erectile dysfunction Neurogenic bladder Recurrent UTI Acute back pain Acute radicular low back pain Unspecified fracture of unspecified thoracic vertebra, sequela Rotator cuff tear arthropathy Hx of spinal cord injury Encounter for long-term opiate analgesic use Back pain with history of spinal surgery Chronic radicular low back pain Opioid contract exists Surgical History Hx laparoscopic cholecystectomy 06/27/23 Dr Garcia History of back surgery Family History Denies family history of Anesthesia complication Social History Smoking and tobacco/nicotine status: current every day tobacco/nicotine user cigarettes Second hand smoke exposure: No Alcohol intake: never Substance/Drug Use: never Current occupational status: disabled Physical Exam Const: COMMON NORMALS: no acute distress and no limitations GENERAL APPEARANCE: cooperative and well developed ORIENTATION/CONSCIOUSNESS: Yes awake HENMT: COMMON NORMALS: normocephalic, atraumatic and hearing grossly normal bilaterally HEAD & SCALP: normocephalic and atraumatic TEETH & GINGIVA: Yes abnormal tooth and associated gingiva lower left tender and with associated gingival edema, Yes caries, Yes multiple restorations and Yes poor dentition OTHER: Swelling left face Eye: COMMON NORMALS: Equal, round and reactive pupils present, EOMs intact bilaterally and conjunctivae normal CONJUNCTIVA: Yes conjunctivae normal PUPIL: Yes Equal, round and reactive pupils present Neck/C-Spine: COMMON NORMALS: full ROM, supple and no JVD Resp: COMMON NORMALS: normal respiratory effort, No retractions, No use of accessory muscles and clear to auscultation bilaterally AUSCULTATION: clear to auscultation bilaterally Cardio: COMMON NORMALS: no JVD, regular rate, regular rhythm, No clicks present (Cardio), No murmurs present (Cardio) and No rub (Cardio) RATE: regular rate RHYTHM: regular rhythm Extremity: COMMON NORMALS: normal to inspection, full ROM and capillary refill normal Skin: COMMON NORMALS: no rashes or lesions noted GENERAL SKIN EXAM: no rashes or lesions noted Course Vital Signs: Vital signs: Vital Signs Temperature 97.6 F 10/26/23 17:05 Pulse Rate 89 10/26/23 17:05 Respiratory Rate 16 10/26/23 17:05 Blood Pressure 127/79 10/26/23 17:05 Pulse Oximetry 100 10/26/23 17:05 Oxygen Delivery Me thod Room Air 10/26/23 16:30 MDM - Dental/Oral Medical Decision Making Patient presents with couple days of left lower face swelling and dental pain. History of severely poor dentition, has an appointment with dentist next week for probable extraction. However his pain and swelling were getting too severe. His vitals were normal. Evidence for dental abscess was present, will treat with a more appropriate antibiotic as patient states he was taking metronidazole that was old. Also will treat with steroids, given a shot of Decadron here in the emergency department prior to discharge. He will keep follow-up with dentist and given return precautions for any trouble breathing or throat sw elling. No radiology studies performed this visit Discharge Plan Discharge Patient Disposition: Home Clinical Impression: Dental abscess Condition: Stable Prescriptions: New prednisone 20 mg tablet 60 mg PO ONCE 5 Days Qty: 15 0RF amoxicillin-pot clavulanate 875-125 mg tablet 1 tab PO BID 10 Days Qty: 20 0RF Discontinued amoxicillin-pot clavulanate 875-125 mg tablet 1 tab PO BID Qty: 20 0RF No Action tadalafil 20 mg tablet 20 mg PO DAILY PRN (Reason: sexual activity) Qty: 20 12RF Rx Instructions: administer approximately 30min before sexual activity; NO NITROGLYCERIN! cephalexin 250 mg capsule 250 mg PO TID Qty: 42 12RF Hold Instructions: Resume on 07/07/23. famotidine 40 mg tablet 40 mg PO BID Qty: 180 1RF hydrocodone-acetaminophen 10-325 mg tablet 1 tab PO Q8H PRN (Reason: pain) 30 Days Qty: 90 0RF lactulose 10 gram/15 mL solution 30 ml PO BID Rx Instructions: TAKE 30 ML BY MOUTH TWICE DAILY Colace 100 mg capsule 100 mg PO BID Qty: 14 0RF ciprofloxacin HCl 500 mg tablet 500 mg PO Q12H Qty: 20 0RF Discharge Orders: Discharge ED (Routine); Ordered 10/26/23 Ordered By: Jesse Harrison Referrals: Igor Reyna MD [Primary Care Provider] - Discharge Diet: As Directed Discharge Activity: Increase activity as tolerated Patient Instructions: Dental Abscess (ED) Activity Restrictions/Additional Instructions: Steroids. Antibiotics. Follow-up with dentist as already planned. Return if you have any worsening swelling, trouble breathing, or other concerning symptoms. Coding Level of Care Code ED Patient Registration Clerk for [facility] Documented by User: Robe Garcia DO 10/28/23 05:53 HPI - Dental/Oral General: Chief complaint: Dental/Oral Stated complaint: Left jaw pain possible absess Time Seen by Provider: 10/26/23 16:33 Related Data Home Medications Medication Instructions Recorded Confirmed lactulose 10 gram/15 mL oral 30 ml PO BID 06/10/23 08/14/23 solution Previous Rx's Medication Instructions Recorded tadalafil 20 mg tablet 20 mg PO DAILY PRN sexual activity 08/08/22 #20 tabs cephalexin 250 mg capsule 250 mg PO TID #42 caps 10/15/22 docusate sodium 100 mg capsule 100 mg PO BID #14 caps 06/27/23 (Colace) ciprofloxacin HCl 500 mg tablet 500 mg PO Q12H #20 tabs 07/17/23 famotidine 40 mg tablet 40 mg PO BID #180 tabs 09/10/23 hydrocodone 10 mg-acetaminophen 1 tab PO Q8H PRN pain 30 days #90 10/07/23 325 mg tablet tabs amoxicillin 875 mg-potassium 1 tab PO BID 10 days #20 tabs 10/26/23 clavulanate 125 mg tablet prednisone 20 mg tablet 60 mg (3 x 20 mg) PO ONCE 5 days 10/26/23 #15 tabs Allergies Allergy/AdvReac Type Severity Reaction Status Date / Time linaclotide [From Linzess] Allergy vomiting Verified 08/14/23 08:31 lubiprostone [From Amitiza] Allergy vomiting Verified 08/14/23 08:31 Sulfa (Sulfonamide Allergy na Verified 08/14/23 08:31 Antibiotics) Nitrofuran Analogues AdvReac na Verified 08/14/23 08:31 PFSH ED PFSH: Medical History Cholelithiasis Chronic low back pain Erectile dysfunction Neurogenic bladder Recurrent UTI Acute back pain Acute radicular low back pain Unspecified fracture of unspecified thoracic vertebra, sequela Rotator cuff tear arthropathy Hx of spinal cord injury Encounter for long-term opiate analgesic use Back pain with history of spinal surgery Chronic radicular low back pain Opioid contract exists Surgical History Hx laparoscopic cholecystectomy 06/27/23 Dr Garcia History of back surgery Family History Denies family history of Anesthesia complication Social History Smoking and tobacco/nicotine status: current every day tobacco/nicotine user c igarettes Second hand smoke exposure: No Alcohol intake: never Substance/Drug Use: never Current occupational status: disabled Course Vital Signs: Vital signs: Vital Signs Temperature 97.6 F 10/26/23 17:05 Pulse Rate 89 10/26/23 17:05 Respiratory Rate 16 10/26/23 17:05 Blood Pressure 127/79 10/26/23 17:05 Pulse Oximetry 100 10/26/23 17:05 Oxygen Delivery Me thod Room Air 10/26/23 16:30 MDM - Dental/Oral Medical Decision Making Patient presents with couple days of left lower face swelling and dental pain. History of severely poor dentition, has an appointment with dentist next week for probable extraction. However his pain and swelling were getting too severe. His vitals were normal. Evidence for dental abscess was present, will treat with a more appropriate antibiotic as patient states he was taking metronidazole that was old. Also will treat with steroids, given a shot of Decadron here in the emergency department prior to discharge. He will keep follow-up with dentist and given return precautions for any trouble breathing or throat swelling. Chart reviewed Discharge Plan Discharge Patient Disposition: Home Clinical Impression: Dental abscess Condition: Stable Prescriptions: New prednisone 20 mg tablet 60 mg PO ONCE 5 Days Qty: 15 0RF amoxicillin-pot clavulanate 875-125 mg tablet 1 tab PO BID 10 Days Qty: 20 0RF Discontinued amoxicillin-pot clavulanate 875-125 mg tablet 1 tab PO BID Qty: 20 0RF No Action tadalafil 20 mg tablet 20 mg PO DAILY PRN (Reason: sexual activity) Qty: 20 12RF Rx Instructions: administer approximately 30min before sexual activity; NO NITROGLYCERIN! cephalexin 250 mg capsule 250 mg PO TID Qty: 42 12RF Hold Instructions: Resume on 07/07/23. famotidine 40 mg tablet 40 mg PO BID Qty: 180 1RF hydrocodone-acetaminophen 10-325 mg tablet 1 tab PO Q8H PRN (Reason: pain) 30 Days Qty: 90 0RF lactulose 10 gram/15 mL solution 30 ml PO BID Rx Instructions: TAKE 30 ML BY MOUTH TWICE DAILY Colace 100 mg capsule 100 mg PO BID Qty: 14 0RF ciprofloxacin HCl 500 mg tablet 500 mg PO Q12H Qty: 20 0RF Discharge Orders: Discharge ED (Routine); Ordered 10/26/23 Ordered By: Jesse Harrison Referrals: Igor Reyna MD [Primary Care Provider] - Discharge Diet: As Directed Discharge Activity: Increase activity as tolerated Patient Instructions: Dental Abscess (ED) Activity Restrictions/Additional Instructions: Steroids. Antibiotics. Follow-up with dentist as already planned. Return if you have any worsening swelling, trouble breathing, or other concerning symptoms. Coding Level of Care Code ED Patient Registration Clerk for David Hassan
[2023-10-26] MEDS: dexamethasone 10 mg/mL INJ IM (16:58)
[2023-10-26 17:05] VITALS: BP 127/79; PULSE 89; RESP 16; TEMP 36.4; O2SAT 100
== END 2023-10-26 17:02 | disposition home or self-care (01) ==
PROVIDERS: Emergency Provider Physician Assistant; PCP Family Medicine
DX: K04.7 Periapical abscess without sinus (principal); F17.210 Nicotine dependence, cigarettes, uncomplicated
CPT/HCPCS: 96372; 99284; J1100

== ENCOUNTER 2023-11-21 12:29 | Emergency (ER) | payer MEDICAID, SELFPAY ==
[2023-11-21 12:50] VITALS: BP 112/72; PULSE 107; RESP 17; TEMP 37.3; O2SAT 97; BMI 20.2
--- NOTE | 2023-11-21 13:05 | CT_ITS ---
WS: [id number] CT ABDOMEN PELVIS TECHNIQUE: Contrast-enhanced CT of the abdomen and pelvis with coronal and sagittal reformatted image s. CLINICAL INFORMATION: abd pain COMPARISON: CT 05/14/2023 DLP: 402.[address] scans at [facility] use at least one of these dose optimization techniques: automated e xposure control; mA and/or kV adjustment per patient size (includes targeted exams where dose is matc hed to clinical indication); or iterative reconstruction. FINDINGS: Prior cholecystectomy. Diffuse fatty infiltration the liver. Stable suspected hemangioma in the RIGHT hepatic lobe. Normal portal vein and splenic vein. Normal spleen. Normal GE junction. Lung bases are well aerated. Normal caliber abdominal aorta. Adrenal glands are normal. No hydronephrosis in either kidney. Mild sigmoid constipation. Mild pancolonic constipation. Normal appendix. No evidence of acute append icitis. Previously described colitis on the prior examination appears to have resolved. Prominent heterogeneously enhancing prostate for patient this age. Recommend correlation with PSA. Re commend correlation for prostatitis. Prostate measures 4.1 x 5.1 cm. This appears progressed compared to previous. No other acute findings. CT/CT abdomen pelvis w con* [id number] IMPRESSION: 1. Heterogeneously enhancing enlarged prostate with enhancement involving the prostatic urethra. Recommend correlation for UTI and prostatitis. Mild surround ing induration. 2. Previously described colitis has essentially resolved. Mild residual submuc osal enhancement in the distal sigmoid colon abutting the prostate. This may be reactive. 3. No other acute findings. Notified Mariam Lomeli MD at 11/21/2023 2:08 PM.
--- NOTE | 2023-11-21 13:07 | ED_ITS ---
HPI - Male Genitourinary 2 General: Chief complaint: Urogenital-Male Stated complaint: fever, chills, bodyaches Time Seen by Provider: 11/21/23 12:51 Source: patient Mode of arrival: ambulatory Limitations: no limitations History of Present Illness: 38-year-old male states of the last 2 da ys he has been having fever chills body aches he states he is also had foul-smelling urine with suprapubic pain. He has had a history of urinary tract infections in the past he denies any vomiting or diarrhea denies any cough denies any worse improving factors Associated symptoms: Reports dysuria; Deny nausea or vomiting Related Data Previous Rx's Medication Instructions Recorded famotidine 40 mg tablet 40 mg PO BID #180 tabs 09/10/23 hydrocodone 10 mg-acetaminophen 1 tab PO Q8H PRN pain 30 days #90 11/05/23 325 mg tablet tabs lactulose 10 gram/15 mL oral See Rx Instructions .Route 11/14/23 solution .COMPLEX #473 mL ciprofloxacin HCl 500 mg tablet 500 mg PO BID #28 tabs 11/21/23 (Cipro) hydrocodone 5 mg-acetaminophen 325 1 tab PO Q6H PRN pain #14 tabs 11/21/23 mg tablet ondansetron 4 mg disintegrating 4 mg PO Q6H PRN nausea and 11/21/23 tablet vomiting #14 tabs Allergies Allergy/AdvReac Type Severity Reaction Status Date / Time linaclotide [From Linzess] Allergy vomiting Verified 08/14/23 08:31 lubiprostone [From Amitiza] Allergy vomiting Verified 08/14/23 08:31 Sulfa (Sulfonamide Allergy na Verified 08/14/23 08:31 Antibiotics) Nitrofuran Analogues AdvReac na Verified 08/14/23 08:31 Review of Systems 2 Const: Reports: fever(s), chills and body aches; Denies: change in appetite Eyes: Denies: eye discomfort ENMT: Denies: throat pain or dental pain Card: Denies: chest pain Resp: Denies: dyspnea GI: Denies: abdominal pain, nausea, vomiting or diarrhea : Reports: dysuria Musc: Denies: neck pain or back pain Skin/Breast: Denies: rash Neuro: Denies: headache(s) PFSH ED 2 PFSH: Medical History Cholelithiasis Chronic low back pain Erectile dysfunction Neurogenic bladder Recurrent UTI Acute back pain Acute radicular low back pain Unspecified fracture of unspecified thoracic vertebra, sequela Rotator cuff tear arthropathy Hx of spinal cord injury Encounter for long-term opiate analgesic use Back pain with history of spinal surgery Chronic radicular low back pain Opioid contract exists Surgical History Hx laparoscopic cholecystectomy 06/27/23 Dr Garcia History of back surgery Family History Denies family history of Anesthesia complication Social History Smoking and tobacco/nicotine status: current every day tobacco/nicotine user cigarettes Second hand smoke exposure: No Alcohol intake: never Substance/Drug Use: never Current occupational status: disabled Physical Exam 2 Const: COMMON NORMALS: patient oriented x3 HENMT: COMMON NORMALS: normocephalic and atraumatic HEAD & SCALP: n ormocephalic and atraumatic Neck/C-Spine: COMMON NORMALS: full ROM and supple Chest: COMMONS NORMALS: normal inspection of the chest Resp: COMMON NORMALS: normal respiratory effort, No retractions, No use of accessory muscles and clear to auscultation bilaterally AUSCULTATION: clear to auscultation bilaterally Cardio: COMMON NORMALS: regular rhythm and No murmurs present (Cardio) R ATE: tachycardic RHYTHM: regular rhythm GI: COMMON NORMALS: Normal to inspection, nondistended, normoactive bowel sounds present, Soft to palpation and no masses PALPATION: Yes Soft to palpation OTHER: suprapubic tenderness Extremity: COMMON NORMALS: normal to inspection and full ROM Neuro: COMMON NORMALS: patient oriented x3, moves all extremities and no focal motor deficits Psych: COMMON NORMALS: mental status grossly normal, Normal thought process present and cooperative THOUGHT PROCESS: Normal thought process present Skin: COMMON NORMALS: no rashes or lesions noted and no wounds GENERAL SKIN EXAM: no rashes or lesions noted Course 2 Vital Signs: Vital signs: Vital Signs Temperature 99.1 F 11/21/23 12:50 Pulse Rate 109 H 11/21/23 15:54 Respiratory Rate 18 11/21/23 13:24 Blood Pressure 139/80 11/21/23 16:27 Pulse Oximetry 96 11/21/23 15:54 Oxygen Delivery Me thod Room Air 11/21/23 15:54 MDM - Male Medical Decision Making Patient presents for dysuria likely a prostatitis will start on Cipro we will get him follow-up with urology return if worsening patient understands agrees to plan. Medical Records I reviewed the patient's medical records. Lab Data I reviewed the patient's lab results. 11/21/23 13:12 11/21/23 13:12 Radiology Impressions Abdomen/Pelvis CT 11/21/23 13:05 IMPRESSION: 1. Heterogeneously enhancing enlarged prostate with enhancement involving the prostatic urethra. Recommend correlation for UTI and prostatitis. Mild surrounding induration. 2. Previously described colitis has essentially resolved. Mild residual submucosal enhancement in the distal sigmoid colon abutting the prostate. This may be reactive. 3. No other acute findings. Notified Mariam Lomeli MD at 11/21/2023 2:08 PM. Laboratory Results WBC 15.64 10^3/uL (3.29-11.43) H 11/21/23 13:12 RBC 4.81 10^6/uL (3.85-5.65) 11/21/23 13:12 Hgb 14.80 g/dL (11.27-16.99) 11/21/23 13:12 Hct 44.2 % (37-53) 11/21/23 13:12 MCV 91.9 fl (82-101) 11/21/23 13:12 MCH 30.8 pg (27-33) 11/21/23 13:12 MCHC 33.5 g/dL (30-55) 11/21/23 13:12 RDW 12.4 % (12.1-15.1) 11/21/23 13:12 Plt Count 246 10^3/cmm (157-399) 11/21/23 13:12 MPV 8.9 fL (7.4-10.4) 11/21/23 13:12 Neut % (Auto) 78.1 % 11/21/23 13:12 Lymph % (Auto) 11.0 % 11/21/23 13:12 [place] % (Auto) 10.0 % 11/21/23 13:12 Eos % (Auto) 0.2 % 11/21/23 13:12 Baso % (Auto) 0.3 % 11/21/23 13:12 Neut # (Auto) 12.22 10^3/uL (1.8-7.7) H 11/21/23 13:12 Lymph # (Auto) 1.7 10^3/uL (0.8-4.8) 11/21/23 13:12 [place] # (Auto) 1.6 10^3/uL (0.2-0.9) H 11/21/23 13:12 Eos # (Auto) 0.0 10^3/uL (0.0-0.8) 11/21/23 13:12 Baso # (Auto) 0.0 10^3/uL (0.0-0.1) 11/21/23 13:12 Nucleated RBC % (auto) 0 % 11/21/23 13:12 Nucleated RBCs # 0.0 /100WBC 11/21/23 13:12 Sodium 135 mmol/L (136-145) L 11/21/23 13:12 Potassium 3.9 mmol/L (3.5-5.1) 11/21/23 13:12 Chloride 99 mmol/L (98-107) 11/21/23 13:12 Carbon Dioxide 23 mmol/L (22-29) 11/21/23 13:12 Anion Gap 16.9 (5-19) 11/21/23 13:12 BUN 9 mg/dL (6-20) 11/21/23 13:12 Creatinine 0.7 mg/dL (0.7-1.2) 11/21/23 13:12 GFR Calculation 124.9 mL/min (90-130) 11/21/23 13:12 Glucose 110 mg/dL (65-115) 11/21/23 13:12 Calculated Osmolality 279 mOsm/kg (285-295) L 11/21/23 13:12 Lactic Acid 0.9 mmol/L (0.5-2.2) 11/21/23 13:17 Calcium 9.5 mg/dL (8.5-10.5) 11/21/23 13:12 Total Bilirubin 1.4 mg/dL (0.15-1.2) H 11/21/23 13:12 AST 33 U/L (0-40) 11/21/23 13:12 ALT 47 U/L (0-41) H 11/21/23 13:12 Alkaline Phosphatase 81 U/L (40-130) 11/21/23 13:12 Total Protein 7.9 g/dL (6.6-8.7) 11/21/23 13:12 Albumin 4.4 g/dL (3.5-5.2) 11/21/23 13:12 Globulin 3.5 g/dL (1.3-4.6) 11/21/23 13:12 Lipase 15 U/L (13-60) 11/21/23 13:12 Urine Color [place] (Yellow) A 11/21/23 15:11 Urine Appearance Cloudy (CLEAR) A 11/21/23 15:11 Urine pH 7.5 (5-7) 11/21/23 15:11 Ur Specific [place] 1.048 (1.005-1.030) H 11/21/23 15:11 Urine Protein Trace (Negative) A 11/21/23 15:11 Urine Glucose (UA) Negative (Normal) 11/21/23 15:11 Urine Ketones Trace (Negative) 11/21/23 15:11 Urine Blood 3+ (Negative) A 11/21/23 15:11 Urine Nitrate Negative (Negative) 11/21/23 15:11 Urine Bilirubin Negative (Negative) 11/21/23 15:11 Urine Urobilinogen 1.0 mg/dL (Negative) 11/21/23 15:11 Ur Leukocyte Esterase 3+ (Negative) A 11/21/23 15:11 Urine RBC 51-100 /hpf (0-2) H 11/21/23 15:11 Urine WBC >100 /hpf (0-5) H 11/21/23 15:11 Ur Squamous Epith Cells 0-5 /hpf (0-5) 11/21/23 15:11 Amorphous Sediment Not Reportable 11/21/23 15:11 Urine Bacteria Trace /hpf (NONE) 11/21/23 15:11 Hyaline Casts 0-4 /lpf H 11/21/23 15:11 Urine Sperm 2+ /hpf 11/21/23 15:11 Coronavirus (PCR) Negative (Negative) 11/21/23 13:07 Influenza A (PCR) Negative (Negative) 11/21/23 13:07 Influenza Type B (PCR) Negative (Negative) 11/21/23 13:07 RSV (PCR) Negative (Negative) 11/21/23 13:07 All radiology interpretation(s) finalized by discharge Discharge Plan Discharge Patient Disposition: Home Clinical Impression: Prostatitis Condition: Stable Prescriptions: New hydrocodone-acetaminophen 5-325 mg tablet 1 tab PO Q6H PRN (Reason: pain) Qty: 14 0RF Cipro 500 mg tablet 500 mg PO BID Qty: 28 0RF ondansetron 4 mg tablet,disintegrating 4 mg PO Q6H PRN (Reason: nausea and vomiting) Qty: 14 0RF No Action famotidine 40 mg tablet 40 mg PO BID Qty: 180 1RF hydrocodone-acetaminophen 10-325 mg tablet 1 tab PO Q8H PRN (Reason: pain) 30 Days Qty: 90 0RF lactulose 10 gram/15 mL solution See Rx Instructions .ROUTE .COMPLEX Qty: 473 0RF Dose Instruction: TAKE 30 ML BY MOUTH TWICE DAILY Rx Instructions: TAKE 30 ML BY MOUTH TWICE DAILY Discharge Orders: Discharge ED (Routine); Ordered 11/21/23 Ordered By: Mariam Lomeli Referrals: Igor Reyna MD [Primary Care Provider] - Discharge Diet: Advance as tolerated Discharge Activity: Resume usual activity Patient Instructions: Prostatitis (ED), Opioid Safety Coding Level of Care Code ED Stereo Operator for David Hassan
[2023-11-21 13:10] VITALS: BP 127/84; PULSE 105; O2SAT 96
[2023-11-21 13:22] LABS: Basophils % 0.3 %; Eosinophils % 0.2 %; Hematocrit 44.2 % (37-53); Lymphocytes # 1.7 10^3/uL (0.8-4.8); Mean Corpuscular HGB Conc 33.5 g/dL (30-55); Mean Corpuscular Hemoglobin 30.8 pg (27-33); Mean Corpuscular Volume 91.9 fl (82-101); Mean Platelet Volume 8.9 fL (7.4-10.4); Monocytes # 1.6 10^3/uL (0.2-0.9); Neutrophils # 12.22 10^3/uL (1.8-7.7); Neutrophils % 78.1 %; Nucleated Red Blood Cells % 0 %; Platelet Count 246 10^3/cmm (157-399); Red Blood Count 4.81 10^6/uL (3.85-5.65); Red Cell Distribution Width 12.4 % (12.1-15.1); White Blood Count 15.64 10^3/uL (3.29-11.43)
[2023-11-21 13:24] VITALS: RESP 18
[2023-11-21] MEDS: ondansetron 2 mg/ML SDV 2 mL 4 MG IVP (13:24)
[2023-11-21] MEDS: morphine 4 mg/mL SDV 1 mL IVP (13:24)
[2023-11-21] MEDS: sodium chloride 0.9% 1,000 ML 999 ML IV ×2 (13:27→15:37)
[2023-11-21] MEDS: iohexol 350 mg/mL 500 mL Btl (per mL) IV (13:37)
[2023-11-21 13:44] LABS: Alanine Aminotransferase 47 U/L (0-41); Albumin Level 4.4 g/dL (3.5-5.2); Alkaline Phosphatase 81 U/L (40-130); Anion Gap 16.9 (5-19); Aspartate Amino Transferase 33 U/L (0-40); Blood Urea Nitrogen 9 mg/dL (6-20); Calcium 9.5 mg/dL (8.5-10.5); Carbon Dioxide 23 mmol/L (22-29); Chloride 99 mmol/L (98-107); Creatinine Clr Calc Pharmacy 141.8421; Globulin 3.5 g/dL (1.3-4.6); Glomerular Filtration Rate 124.9 mL/min (90-130); Glucose 110 mg/dL (65-115); Lipase 15 U/L (13-60); Osmolality Calculated 279 mOsm/kg (285-295); Potassium 3.9 mmol/L (3.5-5.1); Sodium 135 mmol/L (136-145); Total Bilirubin 1.4 mg/dL (0.15-1.2); Total Protein 7.9 g/dL (6.6-8.7)
[2023-11-21 14:06] LABS: Lactic Sepsis W/Reflex 0.9 mmol/L (0.5-2.2)
[2023-11-21 14:13] LABS: Covid PCR NEGATIVE (Negative); Influenza A NEGATIVE (Negative); Influenza B NEGATIVE (Negative); Respiratory Syncytial Virus Ce NEGATIVE (Negative)
[2023-11-21 15:18] LABS: Bilirubin Urine Negative (Negative); Blood Urine 3+ (Negative); Glucose Urine UA Negative (Normal); Ketones Urine Trace (Negative); Leukocyte Esterase Urine 3+ (Negative); Nitrate Urine Negative (Negative); Protein Urine Trace (Negative); Urine Appearance Cloudy (CLEAR); pH Urine 7.5 (5-7)
[2023-11-21 15:23] LABS: Add Urine Microscopic? YES; Bacteria Urine Trace /hpf; Hyaline Casts Urine 0-4 /lpf; RBC Urine 51-100 /hpf (0-2); Squamous Epithelial Cell Urine 0-5 /hpf (0-5); WBC Urine >100 /hpf (0-5)
[2023-11-21 15:35] LABS: Specific Gravity, Urine 1.048 (1.005-1.030); Urine Color Orange (Yellow)
[2023-11-21 15:37] LABS: UA Slide Review UA Slide Review Perf
[2023-11-21 15:38] LABS: Add Urine Culture? Yes; Sperm Urine 2+ /hpf
[2023-11-21 15:54] VITALS: BP 127/84; PULSE 109; O2SAT 96
[2023-11-21] MEDS: cefTRIAXone 1,000 mg SDV 1000 MG IVP (16:05)
[2023-11-21] MEDS: HYDROcodone-acetaminophen 7.5-325 mg Tablet 1 TAB PO (16:08)
[2023-11-21 16:27] VITALS: BP 139/80
--- NOTE | 2023-11-22 09:52 | PC.SOCIAL ---
Spoke with patient, he would like referral to [facility]. Referral faxed to [facility]. Spoke with Lisa who stated that they would review, and should be able to get in next week.
== END 2023-11-21 16:28 | disposition home or self-care (01) ==
PROVIDERS: Emergency Provider Emergency Medicine; PCP Family Medicine
DX: N41.9 Inflammatory disease of prostate, unspecified (principal); Z11.52 Encounter for screening for COVID-19; F17.210 Nicotine dependence, cigarettes, uncomplicated
CPT/HCPCS: 0241U; 74177; 80053; 81001; 83605; 83690; 85025; 87077; 87086; 87186; 96361; 96374; 96375; 99285; J0696; J2270; J2405; J7030

== ENCOUNTER → 2023-12-17 08:31 | Outpatient (BNVA) | payer MEDICAID, SELFPAY | PROVIDERS: PCP Family Medicine; Visit Provider Family Medicine | DX: N39.0 Urinary tract infection, site not specified (principal); N41.0 Acute prostatitis | CPT/HCPCS: 81000; 85025 ==

== ENCOUNTER 2024-02-04 12:21 | Emergency (ER) | payer MEDICAID, SELFPAY ==
[2024-02-04 13:25] VITALS: BP 115/54; PULSE 93; RESP 16; TEMP 36.6; O2SAT 99
--- NOTE | 2024-02-04 13:30 | W.ED.DENTAL ---
HPI - Dental/Oral General: Chief complaint: Dental/Oral Stated complaint: tooth pain Time Seen by Provider: 02/04/24 13:00 Source: patient Mode of arrival: ambulatory Limitations: no limitations History of Present Illness: 38-year-old male states he has history of poor dentition states he had seen a dentist recently is currently on antibiotics states they are scheduled to get his teeth pulled in March. States been having right upper dental pain he states he is on a pain contract and takes hydrocodone's take extra hydrocodone due to the dental pain and is ran out and his prescriptions not for 4 days states pains increase in trying out rates pain a 6 out of 10 denies any difficulty swallowing. Associated symptoms: Denies fever(s) Related Data Previous Rx's Medication Instructions Recorded famotidine 40 mg tablet 40 mg PO BID #180 tabs 09/10/23 hydrocodone 5 mg-acetaminophen 325 1 tab PO Q6H PRN pain #14 tabs 11/21/23 mg tablet ondansetron 4 mg disintegrating 4 mg PO Q6H PRN nausea and 11/21/23 tablet vomiting #14 tabs ciprofloxacin HCl 250 mg tablet 250 mg PO BID #40 tabs 12/17/23 tamsulosin 0.4 mg capsule 0.4 mg PO DAILY OPEN PROSTATE #30 12/17/23 caps lactulose 10 gram/15 mL oral See Rx Instructions .Route 01/22/24 solution .COMPLEX #473 mL hydrocodone 10 mg-acetaminophen 1 tab PO Q8H PRN pain 30 days #90 02/03/24 325 mg tablet tabs Allergies Allergy/AdvReac Type Severity Reaction Status Date / Time linaclotide [From Linzess] Allergy vomiting Verified 02/04/24 13:28 lubiprostone [From Amitiza] Allergy vomiting Verified 02/04/24 13:28 Sulfa (Sulfonamide Allergy na Verified 02/04/24 13:28 Antibiotics) Nitrofuran Analogues AdvReac na Verified 02/04/24 13:28 Review of Systems Const: Denies: fever(s), chills, body aches or change in appetite ENMT: Reports: mouth pain; Denies: throat pain or dental pain Card: Denies: chest pain Resp: Denies: dyspnea GI: Denies: abdominal pain, nausea, vomiting or diarrhea Musc: Denies: neck pain or back pain Skin/Breast: Denies: rash Neuro: Denies: headache(s) PFSH ED PFSH: Medical History Cholelithiasis Chronic low back pain Erectile dysfunction Neurogenic bladder Recurrent UTI Acute back pain Acute radicular low back pain Unspecified fracture of unspecified thoracic vertebra, sequela Rotator cuff tear arthropathy Hx of spinal cord injury Encounter for long-term opiate analgesic use Back pain with history of spinal surgery Chronic radicular low back pain Opioid contract exists Surgical History Hx laparoscopic cholecystectomy 06/27/23 Dr Garcia History of back surgery Family History Denies family history of Anesthesia complication Social History Smoking and tobacco/nicotine status: never used tobacco/nicotine Second hand smoke exposure: No Alcohol intake: never Substance/Drug Use: never Current occupational status: disabled Physical Exam Const: COMMON NORMALS: no acute distress, patient oriented x3 and healthy appearing HENMT: COMMON NORMALS: normocephalic and atraumatic HEAD & SCALP: normocephalic and atraumatic OTHER: Poor dentition no trismus no abscess Neck/C-Spine: COMMON NORMALS: full ROM and supple Chest: COMMONS NORMALS: normal inspection of the chest Resp: COMMON NORMALS: normal respiratory effort Cardio: COMMON NORMALS: regular rate RATE: regular rate Extremity: COMMON NORMALS: normal to inspection and full ROM Neuro: COMMON NORMALS: patient oriented x3, moves all extremities and no focal motor deficits Psych: COMMON NORMALS: mental status grossly normal, Normal thought process present and cooperative THOUGHT PROCESS: Normal thought process present Skin: COMMON NORMALS: no rashes or lesions noted and no wounds GENERAL SKIN EXAM: no rashes or lesions noted Course Vital Signs: Vital signs: Vital Signs Temperature 98 F 02/04/24 13:25 Pulse Rate 93 02/04/24 13:25 Respiratory Rate 16 02/04/24 13:25 Blood Pressure 115/54 02/04/24 13:25 Pulse Oximetry 99 02/04/24 13:25 Oxygen Delivery Me thod Room Air 02/04/24 13:25 MDM - Dental/Oral Medical Decision Making Patient presents with dental pain he has no abscess patient is already on antibiotics patient stable for discharge follow-up with dentist return if worsening Medical Records I reviewed the patient's medical records. No radiology studies performed this visit Discharge Plan Discharge Patient Disposition: Home Clinical Impression: Pain, dental Condition: Stable Prescriptions: No Action ciprofloxacin HCl 250 mg tablet 250 mg PO BID Qty: 40 0RF tamsulosin 0.4 mg capsule 0.4 mg PO DAILY Qty: 30 0RF famotidine 40 mg tablet 40 mg PO BID Qty: 180 1RF lactulose 10 gram/15 mL solution See Rx Instructions .ROUTE .COMPLEX Qty: 473 5RF Dose Instruction: TAKE 30 ML BY MOUTH TWICE DAILY Rx Instructions: TAKE 30 ML BY MOUTH TWICE DAILY hydrocodone-acetaminophen 10-325 mg tablet 1 tab PO Q8H PRN (Reason: pain) 30 Days Qty: 90 0RF hydrocodone-acetaminophen 5-325 mg tablet 1 tab PO Q6H PRN (Reason: pain) Qty: 14 0RF ondansetron 4 mg tablet,disintegrating 4 mg PO Q6H PRN (Reason: nausea and vomiting) Qty: 14 0RF Discharge Orders: Discharge ED (Routine); Ordered 02/04/24 Ordered By: Mariam Lomeli Referrals: Igor Reyna MD [Primary Care Provider] - Discharge Diet: Advance as tolerated Discharge Activity: Resume usual activity Patient Instructions: Toothache (ED) Coding Level of Care Code ED Optomechanical Engineer for David Hassan
[2024-02-04] MEDS: HYDROcodone-acetaminophen 5-325 mg Tablet 1 TAB PO (13:34)
[2024-02-04 13:35] VITALS: BP 111/79; PULSE 94; O2SAT 98
== END 2024-02-04 13:38 | disposition home or self-care (01) ==
PROVIDERS: Emergency Provider Emergency Medicine; PCP Family Medicine
DX: K08.89 Other specified disorders of teeth and supporting structures (principal)
CPT/HCPCS: 99283

== ENCOUNTER 2024-02-04 23:36 | Emergency (ER) | payer MEDICAID, SELFPAY ==
--- NOTE | 2024-02-04 23:40 | ECG_ITS ---
[facility] Test Date: 2024-02-04 Pat Name: Jose Dumont Department: Room: Gender: Male Exec. Creative Director: : 1985 Requested By: Michel Briggs Order Number: [id number] Kenny MD: Keon Marley M.D. Measurements Intervals [place] Rate: 88 P: 67 DC: 163 QRS: 75 QRSD: 92 T: 55 QT: 343 QTc: 415 Interpretive Statements SINUS RHYTHM Compared to ECG 07/17/2023 23:04:26 Sinus tachycardia no longer present Electronically Signed On 02-05-2024 00:58:08 FLOTATION OPERATOR by Keon Marley M.D. [email or web address]
[2024-02-04 23:43] VITALS: BP 109/73; PULSE 88; RESP 18; TEMP 36.6; O2SAT 97
--- NOTE | 2024-02-04 23:56 | W.ED.CHESTPA ---
HPI - Chest Pain General: Chief Complaint: Chest Pain Stated Complaint: Back and Chest Pain Time Seen by Provider: 02/04/24 23:47 Source: patient Mode of arrival: ambulatory Limitations: no limitations History of Present Illness: Patient is a 38-year-old male who is well-known to the emergency department here, presenting for the second time today complaining of chest pain beginning 3 hours prior to arrival. Was seen here for dental pain, abscess ruled out and was discharged home. He normally is prescribed hydrocodone but has been abusing this prescription lately and has been taking every 6 hours as opposed to every 8. States he ran out. He notes pain started while not exerting himself, and radiates to the back. He does note chronic history of upper back pain however due to back surgery in the past. He does not report any specific alleviating or exacerbating factors to his pain. No cardiac history to note, he does not see a butting saw operator. No recent stress test or echocardiogram. He is still having pain at this moment. No shortness of breath, fevers, hemoptysis or hematemesis, or other concerning symptoms to report at this time. MD complaint: chest pain Onset (ago): hour(s) Timing of current episode: constant Onset: during rest Pain location: substernal Pain radiation: back Severity: moderate Quality: tightness Relieving factors: nothing Exacerbating factors: nothing Associated symptoms: Deny abdominal pain, dyspnea, fever(s), nausea, palpitations or vomiting Related Data Previous Rx's Medication Instructions Recorded famotidine 40 mg tablet 40 mg PO BID #180 tabs 09/10/23 hydrocodone 5 mg-acetaminophen 325 1 tab PO Q6H PRN pain #14 tabs 11/21/23 mg tablet ondansetron 4 mg disintegrating 4 mg PO Q6H PRN nausea and 11/21/23 tablet vomiting #14 tabs ciprofloxacin HCl 250 mg tablet 250 mg PO BID #40 tabs 12/17/23 tamsulosin 0.4 mg capsule 0.4 mg PO DAILY OPEN PROSTATE #30 12/17/23 caps lactulose 10 gram/15 mL oral See Rx Instructions .Route 01/22/24 solution .COMPLEX #473 mL hydrocodone 10 mg-acetaminophen 1 tab PO Q8H PRN pain 30 days #90 02/03/24 325 mg tablet tabs Allergies Allergy/AdvReac Type Severity Reaction Status Date / Time linaclotide [From Linzess] Allergy vomiting Verified 02/04/24 23:47 lubiprostone [From Amitiza] Allergy vomiting Verified 02/04/24 23:47 Sulfa (Sulfonamide Allergy na Verified 02/04/24 23:47 Antibiotics) Nitrofuran Analogues AdvReac na Verified 02/04/24 23:47 Review of Systems General: Reports: 10 or more systems reviewed and unremarkable except in HPI and below Const: Denies: fever(s), chills or fatigue Eyes: Denies: change in vision ENMT: Reports: dental pain; Denies: throat pain, ear or mastoid pain or nasal discharge Card: Reports: chest pain; Denies: palpitations, swelling of feet/ankles or lightheadedness Resp: Denies: dyspnea, productive cough or wheezing GI: Denies: abdominal pain, nausea, vomiting, diarrhea or constipation : Denies: flank pain, difficulty urinating, dysuria or urinary frequency Musc: Reports: back pain; Denies: neck pain or joint pain Skin/Breast: Denies: rash Neuro: Denies: headache(s), numbness in extremities or weakness in extremities PFSH ED PFSH: Medical History Cholelithiasis Chronic low back pain Erectile dysfunction Neurogenic bladder Recurrent UTI Acute back pain Acute radicular low back pain Unspecified fracture of unspecified thoracic vertebra, sequela Rotator cuff tear arthropathy Hx of spinal cord injury Encounter for long-term opiate analgesic use Back pain with history of spinal surgery Chronic radicular low back pain Opioid contract exists Surgical History Hx laparoscopic cholecystectomy 06/27/23 Dr Garcia History of back surgery Family History Denies family history of Anesthesia complication Social History Smoking and tobacco/nicotine status: never used tobacco/nicotine Second hand smoke exposure: No Alcohol intake: never Substance/Drug Use: never Current occupational status: disabled Physical Exam Const: COMMON NORMALS: no acute distress and no limitations GENERAL APPEARANCE: cooperative, comfortable and well developed ORIENTATION/CONSCIOUSNESS: Yes awake HENMT: COMMON NORMALS: normocephalic, atraumatic and hearing grossly normal bilaterally HEAD & SCALP: normocephalic and atraumatic Eye: COMMON NORMALS: Equal, round and reactive pupils present, EOMs intact bilaterally and conjunctivae normal CONJUNCTIVA: Yes conjunctivae normal PUPIL: Yes Equal, round and reactive pupils present Neck/C-Spine: COMMON NORMALS: full ROM, supple and no JVD Resp: COMMON NORMALS: normal respiratory effort, No retractions, No use of accessory muscles and clear to auscultation bilaterally AUSCULTATION: clear to auscultation bilaterally Cardio: COMMON NORMALS: no JVD, regular rate, regular rhythm, No clicks present (Cardio), No murmurs present (Cardio) and No rub (Cardio) RATE: regular rate RHYTHM: regular rhythm GI: COMMON NORMALS: Normal to inspection, nondistended, normoactive bowel sounds present, Soft to palpation and non-tender AUSCULTATION: Yes normoactive bowel sounds PALPATION: Yes Soft to palpation RECTAL EXAM: Yes deferred Extremity: COMMON NORMALS: normal to inspection, full ROM and capillary refill normal Psych: COMMON NORMALS: mental status grossly normal and Normal thought process present THOUGHT PROCESS: Normal thought process present Skin: COMMON NORMALS: no rashes or lesions noted GENERAL SKIN EXAM: no rashes or lesions noted Course Vital Signs: Vital signs: Vital Signs Temperature 97.8 F 02/04/24 23:43 Pulse Rate 87 02/05/24 01:12 Respiratory Rate 17 02/05/24 00:46 Blood Pressure 135/75 02/05/24 01:12 Pulse Oximetry 99 02/05/24 01:12 Oxygen Delivery Me thod Room Air 02/05/24 00:46 [facility] - Chest Pain Medical Decision Making Patient presented for chest pain beginning p.o. prior to arrival. This is his second visit today, has been seen in the emergency department numerous times recently. No cardiac history, pain was reported to be substernal radiating to his back though he does have chronic upper back pain status post surgery. His chest x-ray was normal. EKG reviewed showing normal sinus rhythm with no STEMI or other acute findings. His baseline troponin was undetectable and the rest of his lab work normal. Differential diagnosis includes musculoskeletal chest pain, GERD, or malingering. Primary complaint upon recheck was that he was out of his narcotic pain medication, told him that he needs to follow-up with primary care for this and continues plan for dental extraction. Return precautions given. Lab Data 02/05/24 00:08 02/05/24 00:08 Radiology Impressions Chest X-Ray 02/05/24 00:01 IMPRESSION: No acute findings. Laboratory Results WBC 9.42 10^3/uL (3.29-11.43) 02/05/24 00:08 RBC 4.63 10^6/uL (3.85-5.65) 02/05/24 00:08 Hgb 14.20 g/dL (11.27-16.99) 02/05/24 00:08 Hct 42.0 % (37-53) 02/05/24 00:08 MCV 90.7 fl (82-101) 02/05/24 00:08 MCH 30.7 pg (27-33) 02/05/24 00:08 MCHC 33.8 g/dL (30-55) 02/05/24 00:08 RDW 12.2 % (12.1-15.1) 02/05/24 00:08 Plt Count 376 10^3/cmm (157-399) 02/05/24 00:08 MPV 8.6 fL (7.4-10.4) 02/05/24 00:08 Neut % (Auto) 59.6 % 02/05/24 00:08 Lymph % (Auto) 29.7 % 02/05/24 00:08 [place] % (Auto) 7.2 % 02/05/24 00:08 Eos % (Auto) 2.9 % 02/05/24 00:08 Baso % (Auto) 0.4 % 02/05/24 00:08 Neut # (Auto) 5.61 10^3/uL (1.8-7.7) 02/05/24 00:08 Lymph # (Auto) 2.8 10^3/uL (0.8-4.8) 02/05/24 00:08 [place] # (Auto) 0.7 10^3/uL (0.2-0.9) 02/05/24 00:08 Eos # (Auto) 0.3 10^3/uL (0.0-0.8) 02/05/24 00:08 Baso # (Auto) 0.0 10^3/uL (0.0-0.1) 02/05/24 00:08 Nucleated RBC % (auto) 0 % 02/05/24 00:08 Nucleated RBCs # 0.0 /100WBC 02/05/24 00:08 Sodium 140 mmol/L (136-145) 02/05/24 00:08 Potassium 4.3 mmol/L (3.5-5.1) 02/05/24 00:08 Chloride 104 mmol/L (98-107) 02/05/24 00:08 Carbon Dioxide 24 mmol/L (22-29) 02/05/24 00:08 Anion Gap 16.3 (5-19) 02/05/24 00:08 BUN 9 mg/dL (6-20) 02/05/24 00:08 Creatinine 0.5 mg/dL (0.7-1.2) L 02/05/24 00:08 GFR Calculation 184.2 mL/min (90-130) H 02/05/24 00:08 Glucose 99 mg/dL (65-115) 02/05/24 00:08 Calculated Osmolality 289 mOsm/kg (285-295) 02/05/24 00:08 Calcium 10.2 mg/dL (8.5-10.5) 02/05/24 00:08 Total Bilirubin 0.5 mg/dL (0.15-1.2) 02/05/24 00:08 AST 15 U/L (0-40) 02/05/24 00:08 ALT 23 U/L (0-41) 02/05/24 00:08 Alkaline Phosphatase 64 U/L (40-130) 02/05/24 00:08 Troponin T Baseline < 6 ng/L (0-15) 02/05/24 00:08 Total Protein 7.6 g/dL (6.6-8.7) 02/05/24 00:08 Albumin 4.6 g/dL (3.5-5.2) 02/05/24 00:08 Globulin 3.0 g/dL (1.3-4.6) 02/05/24 00:08 XR interpretation done by ED provider, pending radiology final review ED provider radiology interpretation(s): Chest x-ray demonstrating no acute findings. Discharge Plan Discharge Patient Disposition: Home Clinical Impression: Chest pain Qualifiers: Chest pain type: unspecified Qualified Code(s): R07.9 - Chest pain, unspecified Condition: Stable Prescriptions: No Action ciprofloxacin HCl 250 mg tablet 250 mg PO BID Qty: 40 0RF tamsulosin 0.4 mg capsule 0.4 mg PO DAILY Qty: 30 0RF famotidine 40 mg tablet 40 mg PO BID Qty: 180 1RF lactulose 10 gram/15 mL solution See Rx Instructions .ROUTE .COMPLEX Qty: 473 5RF Dose Instruction: TAKE 30 ML BY MOUTH TWICE DAILY Rx Instructions: TAKE 30 ML BY MOUTH TWICE DAILY hydrocodone-acetaminophen 10-325 mg tablet 1 tab PO Q8H PRN (Reason: pain) 30 Days Qty: 90 0RF hydrocodone-acetaminophen 5-325 mg tablet 1 tab PO Q6H PRN (Reason: pain) Qty: 14 0RF ondansetron 4 mg tablet,disintegrating 4 mg PO Q6H PRN (Reason: nausea and vomiting) Qty: 14 0RF Discharge Orders: Discharge ED (Routine); Ordered 02/05/24 Ordered By: Jesse Harrison Referrals: Igor Reyna MD [Primary Care Provider] - Patient Instructions: Chest Pain - Noncardiac Activity Restrictions/Additional Instructions: Follow-up with primary care provider for close reevaluation. Return with any worsening of chest pain, shortness of breath, feeling like you are going to pass out, or other concerning symptoms you may have. Coding Level of Care Code ED Family Dinner Service Specialist for David Hassan
--- NOTE | 2024-02-05 00:01 | XRR_ITS ---
PROCEDURE INFORMATION: Exam: XR Chest Exam date and time: 02/05/2024 12:01 AM Age: 38 years old Clinical indication: Pain; Chest pressure; Additional info: Cp TECHNIQUE: Imaging protocol: Radiologic exam of the chest. Views: 1 view. COMPARISON: CR XR chest 1V portable [id number] 06/15/2023 10:28 PM FINDINGS: Lungs: Unremarkable. No consolidation. Pleural spaces: Unremarkable. No pleural effusion. No pneumothorax. Heart/Mediastinum: Unremarkable. No cardiomegaly. Bones/joints: Unremarkable. XR/XR chest 1V [id number] IMPRESSION: No acute findings.
[2024-02-05] MEDS: LORazepam 2 mg Tablet PO (00:15)
[2024-02-05] MEDS: ketorolac 60 mg/2 mL INJ IM (00:16)
[2024-02-05 00:20] LABS: Basophils % 0.4 %; Eosinophils # 0.3 10^3/uL (0.0-0.8); Eosinophils % 2.9 %; Lymphocytes # 2.8 10^3/uL (0.8-4.8); Lymphocytes % 29.7 %; Mean Corpuscular HGB Conc 33.8 g/dL (30-55); Mean Corpuscular Hemoglobin 30.7 pg (27-33); Mean Corpuscular Volume 90.7 fl (82-101); Mean Platelet Volume 8.6 fL (7.4-10.4); Monocytes # 0.7 10^3/uL (0.2-0.9); Monocytes % 7.2 %; Neutrophils # 5.61 10^3/uL (1.8-7.7); Neutrophils % 59.6 %; Nucleated Red Blood Cells % 0 %; Platelet Count 376 10^3/cmm (157-399); Red Blood Count 4.63 10^6/uL (3.85-5.65); Red Cell Distribution Width 12.2 % (12.1-15.1); White Blood Count 9.42 10^3/uL (3.29-11.43)
[2024-02-05 00:35] LABS: Troponin(5th) Baseline < 6 ng/L (0-15)
[2024-02-05 00:42] LABS: Alanine Aminotransferase 23 U/L (0-41); Albumin Level 4.6 g/dL (3.5-5.2); Alkaline Phosphatase 64 U/L (40-130); Anion Gap 16.3 (5-19); Aspartate Amino Transferase 15 U/L (0-40); Blood Urea Nitrogen 9 mg/dL (6-20); Calcium 10.2 mg/dL (8.5-10.5); Carbon Dioxide 24 mmol/L (22-29); Chloride 104 mmol/L (98-107); Creatinine Clr Calc Pharmacy 201.0989; Glomerular Filtration Rate 184.2 mL/min (90-130); Glucose 99 mg/dL (65-115); Osmolality Calculated 289 mOsm/kg (285-295); Potassium 4.3 mmol/L (3.5-5.1); Sodium 140 mmol/L (136-145); Total Bilirubin 0.5 mg/dL (0.15-1.2); Total Protein 7.6 g/dL (6.6-8.7)
[2024-02-05 00:46] VITALS: BP 135/75; PULSE 85; RESP 17; O2SAT 99
[2024-02-05] MEDS: HYDROcodone-acetaminophen 5-325 mg Tablet 1 TAB PO (01:08)
[2024-02-05 01:12] VITALS: BP 135/75; PULSE 87; O2SAT 99
== END 2024-02-05 01:14 | disposition home or self-care (01) ==
PROVIDERS: Emergency Provider Physician Assistant; PCP Family Medicine
DX: R07.9 Chest pain, unspecified (principal)
CPT/HCPCS: 36415; 71045; 80053; 84484; 85025; 93005; 96372; 99285; J1885

== ENCOUNTER 2024-09-01 22:34 | Emergency (ER) | payer MEDICAID, SELFPAY ==
--- OUTSIDE RECORDS SUMMARY | 2024-01-21 10:00 | XMS_ITS ---
Author Organization [employer] [facility] Address [address] [facility] [place] [address] Care Team Providers Care Certified Athletic Trainer Name Role Phone Igor Reyna Primary Care Provider UnavailALISSA Parrish Unavailable [phone] Jim Milian Unavailable [phone] REASON FOR VISIT prostatitis Encounters Encounter Location Date Provider Diagnosis [facility] [address] [place] [address] 01/21/2024 Jim Milian Plan Of Treatment No Information Progress Notes * Jose DUMONTDOB: 4 (39 yo M)Acc No.[id number]:01/21/2024 Progress Notes Patient: Jose JACOB Provider: Gutierrez Milian APRN :1985 A ge:38 Y S ex:Male Date:01/21/2024 Address:[address] [place], [place] [id number] Pcp:Igor Reyna Subjective: * Chief Complaints: * 1 . Prostatitis. * Medical History: Objective: * Vitals: Assessment: Plan: * Treatment: * Billing Information: * Visit Code: * Procedure Codes: * Electronic signature of Jan Milian APRN on 09/01/2024 at 10:38 PM CDT Sign off status: Pending * Provider: Gutierrez Milian APRN Date: 03/22/2023 Generated for Printi ng/Faxing/eTransmitting on: 0 09/01/2024 10:38 PM CDT
--- OUTSIDE RECORDS SUMMARY | 2024-09-01 22:39 | XMS_ITS | Encounter Summary ---
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
--- OUTSIDE RECORDS SUMMARY | 2024-09-01 22:39 | XMS_ITS | Clinical Summary ---
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
--- OUTSIDE RECORDS SUMMARY | 2024-09-01 22:39 | XMS_ITS | Encounter Summary ---
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
--- OUTSIDE RECORDS SUMMARY | 2024-09-01 22:39 | XMS_ITS | Encounter Summary ---
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
--- OUTSIDE RECORDS SUMMARY | 2024-09-01 22:39 | XMS_ITS | Patient Health Record ---
Author Organization [facility] Address [address] [facility] [place] [address] Care Team Providers Care Test Fixture Designer Name Role Phone Igor eRyna Primary Care Provider ALISSA Gonsales Unavailable [phone] Jim Milian Unavailable [phone] Reason For Referral No Information Encounters Encounter Location Date Provider Diagnosis [facility] [address] [place] [facility] [place] [address] 01/21/2024 Jim Milian [facility] [address] [place] [facility] [place] [address] 11/25/2023 ALISSA SERRANO Plan Of Treatment No Information Insurance Providers Payer Name Payer Address Payer Phone Subscriber Number Group Number Insured Name Patient Relationship to Insured Coverage Start Date Coverage End Date [place] Medicaid [address] [place], [place] [id number] Jose Dumont Self - patient is the insured
--- OUTSIDE RECORDS SUMMARY | 2024-09-01 22:39 | XMS_ITS | Encounter Summary ---
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
--- OUTSIDE RECORDS SUMMARY | 2024-09-01 22:39 | XMS_ITS | Encounter Summary ---
Author Organization [facility] Address [address] [place] [address] Care Team Providers Care Resort Manager Name Role Phone Unavailable Primary Care Provider Unavailabl e Encounter Details Date Type Department Care Team (Latest Contact Info) Description 10/24/2000 Outpatient Historical [facility]- [id number] [place] [address] Last Leo MD [facility] [place] [phone] Cauda equina syndrome without mention of neurogenic bladder (CMS/HCC) (Primary Dx); Other functional disorder of bladder Social History Tobacco Use Types Packs/Day Years Used Date Smoking Tobacco: Never Assessed Sex and Gender Information Value Date Recorded Sex Assigned at Not on file 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
--- OUTSIDE RECORDS SUMMARY | 2024-09-01 22:39 | XMS_ITS | Encounter Summary ---
Author Organization [employer] Address [address] [facility] Attn: Epic Prelude ADT [place] [address] Care Team Providers Care Home Staging Specialist Name Role Phone Unavailable Primary Care Provider Unavailabl e Encounter Details Date Type Department Care Team (Late st Contact Info) Description 09/17/2000 Inpatient Historical Last Leo MD [facility] [place] [phone] Social History Tobacco Use Types Packs/Day Years Used Date Smoking Tobacco: Never Assessed Sex and Gender Information Value Date Recorded Sex Assigned at Not on file 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
--- OUTSIDE RECORDS SUMMARY | 2024-09-01 22:39 | XMS_ITS | Encounter Summary ---
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
[2024-09-01 22:46] VITALS: BP 112/78; PULSE 77; RESP 20; TEMP 36.9; O2SAT 99; BMI 20.2
[2024-09-01 23:31] LABS: Glucose Urine UA Negative (Normal); Nitrate Urine Negative (Negative); Specific Gravity, Urine 1.017 (1.005-1.030)
[2024-09-01 23:37] LABS: Add Urine Microscopic? YES
[2024-09-01 23:54] LABS: Hematocrit 42.8 % (37-53); Hemoglobin 14.40 g/dL (11.27-16.99); Mean Corpuscular HGB Conc 33.6 g/dL (30-55); Mean Corpuscular Hemoglobin 30.7 pg (27-33); Mean Corpuscular Volume 91.3 fl (82-101); Nucleated Red Blood Cells % 0 %; Platelet Count 265 10^3/cmm (157-399); Red Blood Count 4.69 10^6/uL (3.85-5.65); White Blood Count 8.63 10^3/uL (3.29-11.43)
[2024-09-02 00:07] LABS: Alanine Aminotransferase 21 U/L (0-41); Albumin Level 4.4 g/dL (3.5-5.2); Alkaline Phosphatase 55 U/L (40-130); Anion Gap 16.4 (5-19); Aspartate Amino Transferase 14 U/L (0-40); Blood Urea Nitrogen 11 mg/dL (6-20); Calcium 9.7 mg/dL (8.5-10.5); Carbon Dioxide 23 mmol/L (22-29); Chloride 103 mmol/L (98-107); Creatinine Clr Calc Pharmacy 140.4236; Globulin 3.4 g/dL (1.3-4.6); Glucose 98 mg/dL (65-115); Lipase 59 U/L (13-60); Osmolality Calculated 287 mOsm/kg (285-295); Potassium 3.4 mmol/L (3.5-5.1); Sodium 139 mmol/L (136-145); Total Protein 7.8 g/dL (6.6-8.7)
[2024-09-02 00:10] LABS: Lactic Sepsis W/Reflex 0.9 mmol/L (0.5-2.2)
--- NOTE | 2024-09-02 00:39 | CTR_ITS ---
PROCEDURE INFORMATION: Exam: CT Abdomen And Pelvis Without Contrast Exam date and time: 09/02/2024 1:04 AM Age: 39 years old Clinical indication: Abdominal pain; Colic; Additional info: Abd cramping TECHNIQUE: Imaging protocol: Computed tomography of the abdomen and pelvis without contrast. Radiation optimization: All CT scans at this facility use at least one of these dose optimization techniques: automated exposure control; mA and/or kV adjustment per patient size (includes targeted exams where dose is matched to clinical indication); or iterative reconstruction. COMPARISON: CT abdomen pelvis w con* [id number] 11/21/2023 1:34 PM RADIATION DOSE METRICS: Total DLP (mGy-cm): 338.7 FINDINGS: Lungs: The lung bases are clear. Heart: Heart size is within normal limits. There is no pericardial effusion or pericardial thickening. Liver: Stable right hepatic low-density lesion correlating with previously described hemangioma. The liver is otherwise normal. Gallbladder and biliary ducts: The gallbladder is surgically absent. There is no ductal dilatation. Pancreas: The pancreas is normal. Spleen: The spleen is normal. Adrenal glands: The adrenal glands are normal. Kidneys and ureters: No renal calcifications are identified. There is no hydronephrosis. Stomach and bowel: There is no large or small bowel obstruction. There is no evidence of bowel wall thickening. Appendix: Normal retrocecal appendix measuring up to 8 mm containing gas and without adjacent inflammatory change. Intraperitoneal space: No inflammatory changes are identified. There is no free fluid or fluid collection seen. There is no pneumoperitoneum. Vasculature: The aorta is normal in course and caliber. No significant atherosclerotic calcifications are present. Lymph nodes: No enlarged lymph nodes are identified. Urinary bladder: The bladder is unremarkable. Reproductive: There is mild prostatomegaly. Bones/joints: No acute osseous abnormalities are seen. Soft tissues: Tiny periumbilical hernia containing only fat. CT/CT abdomen pelvis wo con [id number] IMPRESSION: 1. No acute intra-abdominal or pelvic process. 2. Other nonemergent findings above.
--- NOTE | 2024-09-02 00:40 | ED_ITS ---
HPI - Abdominal Pain 2 General: Chief Complaint: Abdominal Pain Stated Complaint: Has an infection getting worse painful ABD Pain Time Seen by Provider: 09/02/24 00:25 History of Present Illness: Patient comes in stating he has been off-and-on sick for the past month. When asked what symptoms he is having he states fatigue then states he is just been sick . He is unable to articulate any other symptoms. He denies fever, cough, congestion, chest pain, shortness of breath. Initially denied any abdominal pain, nausea, vomiting, or diarrhea. However as the interview progressed he states that he ran out of his chronic pain medication yesterday and has had some abdominal pain and diarrhea today. States he did talk to his primary care physician who says they will refill his prescription here in a few days. On physical exam his abdomen is soft, nontender. Will check labs, CT abdomen pelvis without IV contrast, treat pain with 15 mg of IV Toradol, treat nausea with 4 mg of IV Zofran, and reassess. Associated Symptoms: Denies fever(s) Related Data Previous Rx's ?Medication ?Instructions ?Recorded famotidine 40 mg tablet 40 mg PO BID #180 tabs 09/09 ondansetron 4 mg disintegrating 4 mg PO Q6H PRN nausea and 11/21/23 tablet vomiting #14 tabs ciprofloxacin HCl 250 mg tablet 250 mg PO BID #40 tabs 12/17/23 tamsulosin 0.4 mg capsule 0.4 mg PO DAILY OPEN PROSTAT E #30 12/17/23 caps lactulose 10 gram/15 mL oral See Rx Instructions .Rout e 01/22/24 solution .COMPLEX #473 mL hydrocodone 10 mg-acetaminophen 1 tab PO Q8H PRN pain 30 days #90 09/01/24 325 mg tablet tabs metoclopramide HCl 10 mg tablet 10 mg PO Q8H PRN nause a and 09/02/24 (Reglan) vomiting #15 tabs naproxen 500 mg tablet 500 mg PO BID PRN pain #14 t abs 09/02/24 Allergies Allergy/AdvReac Type Severity Reaction Status Date / Time linaclotide (From Linzess) Allergy vomiting Verified 02/04/24 23:47 lubiprostone (From Amitiza) Allergy vomiting Verified 02/04/24 23:47 Sulfa (Sulfonamide Allergy na Verified 02/04/24 23:47 Antibiotics) Nitrofuran Analogues AdvReac na Verified 02/04/24 23:47 Review of Systems 2 Const: Denies: fever(s) ENMT: Denies: throat pain Card: Denies: chest pain or palpitations Resp: Denies: dyspnea or productive cough PFSH ED 2 PFSH: Medical History (Updated 09/02/24 @ 02:18 by Mitul Bean MD) Cholelithiasis Chronic low back pain Erectile dysfunction Neurogenic bladder Recurrent UTI Acute back pain Acute radicular low back pain Unspecified fracture of unspecified thoracic vertebra, sequela Rotator cuff tear arthropathy Hx of spinal cord injury Encounter for long-term opiate analgesic use Back pain with history of spinal surgery Chronic radicular low back pain Opioid contract exists Surgical History Hx laparoscopic cholecystectomy 06/27/23 Dr Garcia History of back surgery Family History Denies family history of Anesthesia complication Social History Smoking and tobacco/nicotine status: never used tobacco/nicotine Second hand smoke exposure: No Alcohol intake: never Substance/Drug Use: never Current occupational status: disabled Physical Exam 2 Const: COMMON NORMALS: no acute distress and healthy appearing HENMT: COMMON NORMALS: normocephalic and atraumatic HEAD & SCALP: n ormocephalic and atraumatic Resp: COMMON NORMALS: normal respiratory effort, No retractions and No use of accessory muscles Cardio: COMMON NORMALS: regular rate and regular rhythm RATE: regular rate RHYTHM: regular rhythm GI: COMMON NORMALS: Normal to inspection, nondistended, normoactive bowel sounds present, Soft to palpation and non-tender PALPATION: Yes Soft to palpation Extremity: COMMON NORMALS: normal to inspection and full ROM Course 2 Vital Signs: Vital signs: Vital Signs Temperature 98.5 F 09/01/24 22:46 Pulse Rate 67 09/02/24 01:00 Respiratory Rate 17 09/02/24 01:00 Blood Pressure 112/80 09/02/24 01:00 Pulse Oximetry 97 09/02/24 01:00 Oxygen Delivery Me thod Room Air 09/02/24 00:41 MDM - Abdominal Pain Medical Decision Making On reassessment I talked with the patient about his test results. CT shows no acute intra-abdominal pathology. The patient states that he took too much of his pain medication and that is why he ran out early. Will continue antinausea medication and anti-inflammatories at home. Encouraged him to follow-up with his primary care physician regarding his pain medication. Will discharge at this time with precautions to return for worsening or changing symptoms. Lab Data 09/01/24 23:42 09/01/24 23:42 Labs/Radiology: Radiology Impressions Abdomen/Pelvis CT 09/02/24 00:39 IMPRESSION: 1. No acute intra-abdominal or pelvic process. 2. Other nonemergent findings above. Laboratory Results WBC 8.63 10^3/uL (3.29-11.43) 09/01/24 23:42 RBC 4.69 10^6/uL (3.85-5.65) 09/01/24 23:42 Hgb 14.40 g/dL (11.27-16.99) 09/01/24 23:42 Hct 42.8 % (37-53) 09/01/24 23:42 MCV 91.3 fl (82-101) 09/01/24 23:42 MCH 30.7 pg (27-33) 09/01/24 23:42 MCHC 33.6 g/dL (30-55) 09/01/24 23:42 RDW 12.0 % (12.1-15.1) L 09/01/24 23:42 Plt Count 265 10^3/cmm (157-399) 09/01/24 23:42 MPV 8.8 fL (7.4-10.4) 09/01/24 23:42 Neut % (Auto) 62.3 % 09/01/24 23:42 Lymph % (Auto) 27.2 % 09/01/24 23:42 [place] % (Auto) 7.0 % 09/01/24 23:42 Eos % (Auto) 2.7 % 09/01/24 23:42 Baso % (Auto) 0.5 % 09/01/24 23:42 Neut # (Auto) 5.38 10^3/uL (1.8-7.7) 09/01/24 23:42 Lymph # (Auto) 2.4 10^3/uL (0.8-4.8) 09/01/24 23:42 [place] # (Auto) 0.6 10^3/uL (0.2-0.9) 09/01/24 23:42 Eos # (Auto) 0.2 10^3/uL (0.0-0.8) 09/01/24 23:42 Baso # (Auto) 0.0 10^3/uL (0.0-0.1) 09/01/24 23:42 Nucleated RBC % (auto) 0 % 09/01/24 23:42 Nucleated RBCs # 0.0 /100WBC 09/01/24 23:42 Sodium 139 mmol/L (136-145) 09/01/24 23:42 Potassium 3.4 mmol/L (3.5-5.1) L 09/01/24 23:42 Chloride 103 mmol/L (98-107) 09/01/24 23:42 Carbon Dioxide 23 mmol/L (22-29) 09/01/24 23:42 Anion Gap 16.4 (5-19) 09/01/24 23:42 BUN 11 mg/dL (6-20) 09/01/24 23:42 Creatinine 0.7 mg/dL (0.7-1.2) 09/01/24 23:42 GFR Calculation 124.3 mL/min (90-130) 09/01/24 23:42 Glucose 98 mg/dL (65-115) 09/01/24 23:42 Calculated Osmolality 287 mOsm/kg (285-295) 09/01/24 23:42 Lactic Acid 0.9 mmol/L (0.5-2.2) 09/01/24 23:42 Calcium 9.7 mg/dL (8.5-10.5) 09/01/24 23:42 Total Bilirubin 0.4 mg/dL (0.15-1.2) 09/01/24 23:42 AST 14 U/L (0-40) 09/01/24 23:42 ALT 21 U/L (0-41) 09/01/24 23:42 Alkaline Phosphatase 55 U/L (40-130) 09/01/24 23:42 Total Protein 7.8 g/dL (6.6-8.7) 09/01/24 23:42 Albumin 4.4 g/dL (3.5-5.2) 09/01/24 23:42 Globulin 3.4 g/dL (1.3-4.6) 09/01/24 23:42 Lipase 59 U/L (13-60) 09/01/24 23:42 Urine Color Yellow (Yellow) 09/01/24 23:15 Urine Appearance Clear (CLEAR) 09/01/24 23:15 Urine pH 8.0 (5-7) A 09/01/24 23:15 Ur Specific [place] 1.017 (1.005-1.030) 09/01/24 23:15 Urine Protein Negative (Negative) 09/01/24 23:15 Urine Glucose (UA) Negative (Normal) 09/01/24 23:15 Urine Ketones Trace (Negative) 09/01/24 23:15 Urine Blood Negative (Negative) 09/01/24 23:15 Urine Nitrate Negative (Negative) 09/01/24 23:15 Urine Bilirubin Negative (Negative) 09/01/24 23:15 Urine Urobilinogen 1.0 mg/dL (Negative) 09/01/24 23:15 Ur Leukocyte Esterase Trace (Negative) A 09/01/24 23:15 Urine RBC 0-2 /hpf (0-2) 09/01/24 23:15 Urine WBC 11-20 /hpf (0-5) H 09/01/24 23:15 Ur Squamous Epith Cells 0-5 /hpf (0-5) 09/01/24 23:15 Amorphous Sediment Not Reportable 09/01/24 23:15 Urine Bacteria None seen /hpf (NONE) 09/01/24 23:15 Hyaline Casts 0-4 /lpf H 09/01/24 23:15 All radiology interpretation(s) finalized by discharge Discharge Plan Discharge Patient Disposition: Home Clinical Impression: Opioid dependence with withdrawal Condition: Stable Prescriptions: New metoclopramide HCl [Reglan] 10 mg tablet 10 mg PO Q8H PRN (Reason: nausea and vomiting) Qty: 15 0RF naproxen 500 mg tablet 500 mg PO BID PRN (Reason: pain) Qty: 14 0RF No Action ciprofloxacin HCl 250 mg tablet 250 mg PO BID Qty: 40 0RF tamsulosin 0.4 mg capsule 0.4 mg PO DAILY Qty: 30 0RF famotidine 40 mg tablet 40 mg PO BID Qty: 180 1RF lactulose 10 gram/15 mL solution See Rx Instructions .ROUTE .COMPLEX Qty: 473 5RF Dose Instruction: TAKE 30 ML BY MOUTH TWICE DAILY Rx Instructions: TAKE 30 ML BY MOUTH TWICE DAILY hydrocodone-acetaminophen 10-325 mg tablet 1 tab PO Q8H PRN (Reason: pain) 30 Days Qty: 90 0RF ondansetron 4 mg tablet,disintegrating 4 mg PO Q6H PRN (Reason: nausea and vomiting) Qty: 14 0RF Discharge Orders: Discharge ED (Routine); Ordered 09/02/24 Ordered By: Mitul Bean Referrals: Igor Reyna MD [Primary Care Provider, Family Practice] Patient Instructions: Opioid Safety, Pain Management, Patient Portal & Ericka Instructions Print Language: [place] Coding Level of Care Code ED 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
[2024-09-02 00:41] VITALS: BP 130/92; PULSE 82; RESP 17; O2SAT 95
[2024-09-02] MEDS: ondansetron 2 mg/ML SDV 2 mL 4 MG IVP (00:52)
[2024-09-02 01:00] VITALS: BP 112/80; PULSE 67; RESP 17; O2SAT 97
[2024-09-02 02:00] VITALS: BP 123/71; PULSE 87; RESP 17; O2SAT 97
[2024-09-02 02:30] VITALS: BP 121/80; PULSE 77; RESP 20; O2SAT 97
[2024-09-02] MEDS: metoclopramide 5 mg/mL SDV 2 mL 10 MG IVP (02:46)
== END 2024-09-02 02:57 | disposition home or self-care (01) ==
PROVIDERS: Emergency Provider Emergency Medicine; PCP Family Medicine
DX: F11.23 Opioid dependence with withdrawal (principal)
CPT/HCPCS: 36415; 74176; 80053; 81001; 83605; 83690; 85025; 96361; 96374; 96375; 99285; J1885; J2405; J2765; J7030